=== PATIENT | female | born 1960 | race Caucasian/White ===

== ENCOUNTER 2017-09-15 16:30 | Emergency (ER) | payer BC ==
--- NOTE | 2017-09-15 16:55 | ED ---
Nausea/Vomiting/Diarrhea HPI - General Chief complaint: Nausea/Vomiting/Diarrhea Stated complaint: NVD Time Seen by Provider: 09/15/17 16:53 Source: patient Mode of arrival: wheelchair Limitations: no limitations - History of Present Illness Initial comments: Patient presents with one day of nausea vomiting diarrhea. Patient states associated with diffuse nominal cramping pain. Denies blood in vomit or stool. Denies fever. Patient states history of cholecystectomy. Patient's son was seen and treated in the ER for the same symptoms 3 days ago by myself. MD complaint: nausea, vomiting, diarrhea, abdominal pain - Related Data Home Medications Medication Instructions Recorded Confirmed ALPRAZolam [Xanax] 0.25 mg PO DAILY PRN 09/15/17 09/15/17 Butalb/APAP/Caff 50-325-40Mg 1 tab PO Q4H PRN 09/15/17 09/15/17 [Fioricet 50-325-40] Calcium Carbonate [Tums] 500 mg PO QID PRN 09/15/17 09/15/17 Docusate [Colace] 100 mg PO DAILY PRN 09/15/17 09/15/17 Ergocalciferol [Vitamin D2] 50,000 unit PO Q7D 09/15/17 09/15/17 Hydrocodone/Acetaminophen [[place] 1 tab PO Q6H PRN 09/15/17 09/15/17 10-325] Levothyroxine Sodium [Synthroid] 175 mcg PO DAILY 09/15/17 09/15/17 Lidocaine-Prilocaine Cream [[place] 1 applic TOPICAL DIRECTED PRN 09/15/1709/15 Cream 2.5%/2.5%] Loratadine 10 mg PO DAILY 09/15/17 09/15/17 Omeprazole 20 mg PO DAILY 09/15/17 09/15/17 Prochlorperazine [Compazine] 10 mg PO BID PRN 09/15/17 09/15/17 Sodium Chloride [Saline Nasal 1 spray EA NOSTRIL DAILY PRN 09/15/17 09/15/17 [place]] Tamoxifen Citrate 20 mg PO DAILY 09/15/17 09/15/17 Previous Rx's Medication Instructions Recorded Dicyclomine [Bentyl] 20 mg PO BID PRN #10 tablet 09/15/17 Ondansetron Odt [Zofran Odt] 4 mg PO Q8HR PRN #15 tab 09/15/17 Allergies Allergy/AdvReac Type Severity Reaction Status Date / Time gabapentin Allergy Swelling Verified 09/15/17 16:50 Review of Systems ROS Statement: Those systems with pertinent positive or pertinent negative responses have been documented in the HPI. ROS Other: All systems not noted in ROS Statement are negative. Constitutional: Denies: fever, chills, weakness Eyes: Denies: vision change ENT: Denies: ear pain, throat pain, congestion Respiratory: Denies: cough, dyspnea Cardiovascular: Denies: chest pain, palpitations, syncope Endocrine: Reports: fatigue Gastrointestinal: Reports: abdominal pain, nausea, vomiting, diarrhea. Denies: constipation, hematemesis, melena, hematochezia Genitourinary: Denies: urgency, dysuria, frequency, hematuria Musculoskeletal: Reports: other (LE mm cramps). Denies: back pain Skin: Denies: rash Neurological: Denies: headache Past Medical History Past Medical History: Atrial Fibrillation, Cancer, Fibromyalgia, GERD/Reflux Additional Past Medical History / Comment(s): breast and thyroid cancer , chronic back pain, diverticulitis History of Any Multi-Drug Resistant Organisms: None Reported Past Surgical History: Ablation, Cholecystectomy, Hysterectomy Additional Past Surgical History / Comment(s): lumpectomy left breast, lobectomy thyroid Past Psychological History: No Psychological Hx Reported Smoking Status: Never smoker Past Alcohol Use History: None Reported Past Drug Use History: Marijuana General Exam - General Exam Comments Initial Comments: Laying on bed on side hugging pillow, appears mild to moderately uncomfortable, although patient conversing normally and smiling and pleasant. Limitations: no limitations General appearance: alert Head exam: Present: atraumatic, normocephalic Eye exam: Present: normal appearance, PERRL, EOMI ENT exam: Present: normal exam, normal oropharynx, mucous membranes moist, TM's normal bilaterally, other (Tympanic membranes clear bilaterally) Neck exam: Present: normal inspection Respiratory exam: Present: normal lung sounds bilaterally. Absent: respiratory distress, wheezes, rales, rhonchi Cardiovascular Exam: Present: regular rate, normal rhythm GI/Abdominal exam: Present: soft, tenderness, other (Mild diffuse tenderness). Absent: distended, guarding, rebound, rigid, hernia Extremities exam: Present: normal inspection Neurological exam: Present: alert, oriented X3 Psychiatric exam: Present: normal affect, normal mood Skin exam: Present: warm, dry, intact, normal color. Absent: rash, cyanosis Course Vital Signs 09/15/17 09/15/17 16:32 18:37 Temperature 98.2 F Pulse Rate 116 H 99 Respiratory 18 16 Rate Blood Pressure 125/69 115/63 O2 Sat by Pulse 95 Oximetry Medical Decision Making - Medical Decision Making IV fluids, Pepcid, Zofran, Toradol, Bentyl given Mild elevation of white blood cell count. No other significant lab abnormalities. Patient reevaluated, states she is feeling much better following medications. States nausea resolved following medication. Patient feels comfortable going home. Supportive care discussed. Prescription of Zofran and Bentyl given. Discussed oral hydration. Patient to follow primary care physician. Return to ER for new or worsening symptoms including increased abdominal pain, not tolerating oral intake, fevers. Patient understands and agrees. Patient is very happy with her care. - Lab Data Result diagrams: 09/15/17 17:05 09/15/17 17:05 Lab Results 09/15/17 09/15/17 09/15/17 Range/Units 17:05 17:05 17:05 WBC 14.6 H (3.8-10.6) k/uL RBC 5.00 (3.80-5.40) m/uL Hgb 15.4 (11.4-16.0) gm/dL Hct 46.3 H (34.0-46.0) % MCV 92.7 (80.0-100.0) fL MCH 30.7 (25.0-35.0) pg MCHC 33.1 (31.0-37.0) g/dL RDW 12.7 (11.5-15.5) % Plt Count 251 (150-450) k/uL Neutrophils % 89 % Lymphocytes % 6 % Monocytes % 3 % Eosinophils % 1 % Basophils % 0 % Neutrophils # 13.0 H (1.3-7.7) k/uL Lymphocytes # 0.8 L (1.0-4.8) k/uL Monocytes # 0.4 (0-1.0) k/uL Eosinophils # 0.2 (0-0.7) k/uL Basophils # 0.1 (0-0.2) k/uL Sodium 144 (137-145) mmol/L Potassium 4.2 (3.5-5.1) mmol/L Chloride 108 H (98-107) mmol/L Carbon Dioxide 22 (22-30) mmol/L Anion Gap 14 mmol/L BUN 15 (7-17) mg/dL Creatinine 0.83 (0.52-1.04) mg/dL Est GFR (MDRD) Af Amer >60 (>60 ml/min/1.73 sqM) Est GFR (MDRD) Non-Af >60 (>60 ml/min/1.73 sqM) Glucose 114 H (74-99) mg/dL Calcium 9.4 (8.4-10.2) mg/dL Total Bilirubin 0.8 (0.2-1.3) mg/dL AST 20 (14-36) U/L ALT 29 (9-52) U/L Alkaline Phosphatase 90 (38-126) U/L Total Protein 7.8 (6.3-8.2) g/dL Albumin 4.6 (3.5-5.0) g/dL Lipase 62 (23-300) U/L Urine Color Urine Appearance (Clear) Urine pH (5.0-8.0) Ur Specific [place] (1.001-1.035) Urine Protein (Negative) Urine Glucose (UA) (Negative) Urine Ketones (Negative) Urine Blood (Negative) Urine Nitrite (Negative) Urine Bilirubin (Negative) Urine Urobilinogen (<2.0) mg/dL Ur Leukocyte Esterase (Negative) Urine RBC (0-5) /hpf Urine WBC (0-5) /hpf Ur Squamous Epith Cells (0-4) /hpf Amorphous Sediment (None) /hpf Hyaline Casts (0-2) /lpf Urine Mucus (None) /hpf Influenza Type A RNA Not Detected (Not Detectd) Influenza Type B (PCR) Not Detected (Not Detectd) 09/15/17 Range/Units 17:55 WBC (3.8-10.6) k/uL RBC (3.80-5.40) m/uL Hgb (11.4-16.0) gm/dL Hct (34.0-46.0) % MCV (80.0-100.0) fL MCH (25.0-35.0) pg MCHC (31.0-37.0) g/dL RDW (11.5-15.5) % Plt Count (150-450) k/uL Neutrophils % % Lymphocytes % % Monocytes % % Eosinophils % % Basophils % % Neutrophils # (1.3-7.7) k/uL Lymphocytes # (1.0-4.8) k/uL Monocytes # (0-1.0) k/uL Eosinophils # (0-0.7) k/uL Basophils # (0-0.2) k/uL Sodium (137-145) mmol/L Potassium (3.5-5.1) mmol/L Chloride (98-107) mmol/L Carbon Dioxide (22-30) mmol/L Anion Gap mmol/L BUN (7-17) mg/dL Creatinine (0.52-1.04) mg/dL Est GFR (MDRD) Af Amer (>60 ml/min/1.73 sqM) Est GFR (MDRD) Non-Af (>60 ml/min/1.73 sqM) Glucose (74-99) mg/dL Calcium (8.4-10.2) mg/dL Total Bilirubin (0.2-1.3) mg/dL AST (14-36) U/L ALT (9-52) U/L Alkaline Phosphatase (38-126) U/L Total Protein (6.3-8.2) g/dL Albumin (3.5-5.0) g/dL Lipase (23-300) U/L Urine Color Yellow Urine Appearance Cloudy H (Clear) Urine pH 5.0 (5.0-8.0) Ur Specific [place] 1.029 (1.001-1.035) Urine Protein 1+ H (Negative) Urine Glucose (UA) Negative (Negative) Urine Ketones Negative (Negative) Urine Blood Negative (Negative) Urine Nitrite Negative (Negative) Urine Bilirubin Negative (Negative) Urine Urobilinogen <2.0 (<2.0) mg/dL Ur Leukocyte Esterase Negative (Negative) Urine RBC 1 (0-5) /hpf Urine WBC 2 (0-5) /hpf Ur Squamous Epith Cells 2 (0-4) /hpf Amorphous Sediment Moderate H (None) /hpf Hyaline Casts 3 H (0-2) /lpf Urine Mucus Many H (None) /hpf Influenza Type A RNA (Not Detectd) Influenza Type B (PCR) (Not Detectd) Disposition Clinical Impression: Nausea and vomiting, Diarrhea, Abdominal pain Disposition: HOME SELF-CARE Condition: Good Instructions: Acute Nausea and Vomiting (ED), Acute Diarrhea (ED), Abdominal Pain (ED) Additional Instructions: Anastasia primary care physician one to 2 days for reevaluation. Return to ER if new or worsening symptoms including inability to tolerate oral intake or increased abdominal pain or fevers. Prescriptions: Dicyclomine [Bentyl] 20 mg PO BID PRN #10 tablet PRN Reason: abdominal cramps Ondansetron Odt [Zofran Odt] 4 mg PO Q8HR PRN #15 tab PRN Reason: Nausea Referrals: Nai Diaz MD [Primary Care Provider] - 1-2 days
[2017-09-15] MEDS ORDERED: ONDANSETRON 4 MG/2 ML VIAL IVP STA (17:01)
[2017-09-15] MEDS ORDERED: FAMOTIDINE 20 MG/2 ML VIAL IV STA (17:01)
[2017-09-15] MEDS ORDERED: SODIUM CHLORIDE 0.9% 1,000 ML IV STA (17:01)
[2017-09-15] MEDS ORDERED: DICYCLOMINE 10 MG/ML 2 ML AMP IM STA (17:01)
[2017-09-15 17:23] LABS: Basophils # (A) 0.1 k/uL (0-0.2); Basophils % (A) 0 %; Eosinophils # (A) 0.2 k/uL (0-0.7); Eosinophils % (A) 1 %; HCT 46.3 % (34.0-46.0); HGB 15.4 gm/dL (11.4-16.0); Lymphocytes # (A) 0.8 k/uL (1.0-4.8); Lymphocytes % (A) 6 %; MCH 30.7 pg (25.0-35.0); MCHC 33.1 g/dL (31.0-37.0); MCV 92.7 fL (80.0-100.0); Mean Platelet Volume 7.1; Monocytes # (A) 0.4 k/uL (0-1.0); Monocytes % (A) 3 %; Neutrophils % (A) 89 %; Platelet Count 251 k/uL (150-450); RDW 12.7 % (11.5-15.5); WBC 14.6 k/uL (3.8-10.6)
[2017-09-15 17:34] LABS: ALT 29 U/L (9-52); AST 20 U/L (14-36); Albumin 4.6 g/dL (3.5-5.0); Alkaline Phosphatase 90 U/L (38-126); Anion Gap 14 mmol/L; Blood Urea Nitrogen 15 mg/dL (7-17); Calcium 9.4 mg/dL (8.4-10.2); Carbon Dioxide 22 mmol/L (22-30); Chloride 108 mmol/L (98-107); Glucose 114 mg/dL (74-99); Lipase 62 U/L (23-300); Potassium 4.2 mmol/L (3.5-5.1); Sodium 144 mmol/L (137-145); Total Bilirubin 0.8 mg/dL (0.2-1.3); Total Protein 7.8 g/dL (6.3-8.2)
[2017-09-15] MEDS ORDERED: KETOROLAC 30 MG/ML 1 ML VIAL IVP SCH (18:00)
[2017-09-15 18:12] LABS: Amorphous Sediment,Urine Moderate /hpf; Appearance,Urine Cloudy (Clear); Bilirubin,Urine Negative (Negative); Blood,Urine Negative (Negative); Color,Urine Yellow; Glucose,Urine (UA) Negative (Negative); Hyaline Casts,Urine 3 /lpf (0-2); Ketones,Urine Negative (Negative); Leukocyte Esterase,Urine Negative (Negative); Mucus,Urine Many /hpf; Nitrite,Urine Negative (Negative); Protein,Urine 1+ (Negative); RBC,Urine 1 /hpf (0-5); Specific Gravity,Urine 1.029 (1.001-1.035); Squamous Epithelial Cell,Urine 2 /hpf (0-4); Urobilinogen,Urine <2.0 mg/dL (<2.0); WBC,Urine 2 /hpf (0-5)
[2017-09-15 18:38] VITALS: BP 115/63; PULSE 99; RESP 16
[2017-09-15 19:13] VITALS: TEMP 98.4
== END 2017-09-15 19:11 | disposition home or self-care (01) ==
LOC: EC 16:30
DX: R11.2 Nausea with vomiting, unspecified (principal); R19.7 Diarrhea, unspecified; R10.84 Generalized abdominal pain; K21.9 Gastro-esophageal reflux disease without esophagitis; Z85.3 Personal history of malignant neoplasm of breast; Z85.850 Personal history of malignant neoplasm of thyroid; Z90.49 Acquired absence of other specified parts of digestive tract; Z90.710 Acquired absence of both cervix and uterus; Z79.899 Other long term (current) drug therapy; Z88.8 Allergy status to other drugs, medicaments and biological substances
CPT/HCPCS: 36415; 80053; 83690; 85025; 81001; 87502; 99284; 96374; 96375 ×2; 96361; 96372; J0500; J2405; J1885

== ENCOUNTER 2018-07-01 17:31 | Emergency (ER) | payer BC ==
[2018-07-01 17:55] VITALS: RESP 16; TEMP 99.4
--- NOTE | 2018-07-01 18:12 | ED ---
General Adult HPI - General Source: patient, RN notes reviewed Mode of arrival: wheelchair Limitations: no limitations <Darrin Guillory P - Last Filed: 07/02/18 23:11> <Brittani Contreras P - Last Filed: 07/10/18 00:25> - General Chief complaint: Chest Pain Stated complaint: chest pain Time Seen by Provider: 07/01/18 17:51 - History of Present Illness Initial comments: 57-year-old female with a past medical history of A. fib, breast and thyroid cancer, fibromyalgia, GERD presents to the emergency department for a chief complaint of chest pain 2 weeks. Patient states this pain is in the left of her chest and is a sharp stabbing pain. She states it radiates to her back and neck. Patient states this has been constant for the past 2 weeks. Patient states she thought it was pleurisy but wanted to make sure nothing else was going on. Patient denies smoking. She denies history of asthma. Patient states laying down makes the pain better and bending forward makes the pain worse. Patient states breathing makes the pain worse as well. Patient denies pain in her legs. Patient has no other complaints at this time including s abdominal pain, nausea or vomiting, headache, or visual changes. (Darrin Guillory) - Related Data Home Medications Medication Instructions Recorded Confirmed Butalb/APAP/Caff 50-325-40Mg 1 tab PO Q4H PRN 09/15/17 07/01/18 [Fioricet 50-325-40] Calcium Carbonate [Tums] 500 mg PO QID PRN 09/15/17 07/01/18 Docusate [Colace] 100 mg PO DAILY PRN 09/15/17 07/01/18 Ergocalciferol [Vitamin D2] 50,000 unit PO [place] 09/15/17 07/01/18 Hydrocodone/Acetaminophen [[place] 1 tab PO Q6H PRN 09/15/17 07/01/18 10-325] Levothyroxine Sodium [Synthroid] 175 mcg PO [id number] 09/15/17 07/01/18 Loratadine 10 mg PO DAILY 09/15/17 07/01/18 Omeprazole 20 mg PO DAILY 09/15/17 07/01/18 Sodium Chloride [Saline Nasal 1 spray EA NOSTRIL DAILY PRN 09/15/17 07/01/18 [place]] Tamoxifen Citrate 20 mg PO DAILY 09/15/17 07/01/18 ALPRAZolam [Xanax] 0.5 mg PO HS PRN 07/01/18 07/01/18 Levothyroxine Sodium [Synthroid] 87.5 mcg PO [place] 07/01/18 07/01/18 Allergies Allergy/AdvReac Type Severity Reaction Status Date / Time gabapentin Allergy Rash/Hives Verified 07/01/18 17:49 Review of Systems ROS Other: All systems not noted in ROS Statement are negative. <Darrin Guillory P - Last Filed: 07/02/18 23:11> ROS Other: All systems not noted in ROS Statement are negative. <Brittani Contreras P - Last Filed: 07/10/18 00:25> ROS Statement: Those systems with pertinent positive or pertinent negative responses have been documented in the HPI. Past Medical History Past Medical History: Atrial Fibrillation, Cancer, Fibromyalgia, GERD/Reflux Additional Past Medical History / Comment(s): breast and thyroid cancer , chronic back pain, diverticulitis History of Any Multi-Drug Resistant Organisms: None Reported Past Surgical History: Ablation, Cholecystectomy, Hysterectomy Additional Past Surgical History / Comment(s): lumpectomy left breast, lobectomy thyroid Past Psychological History: No Psychological Hx Reported Smoking Status: Never smoker Past Alcohol Use History: None Reported Past Drug Use History: Marijuana <Darrin Guillory P - Last Filed: 07/02/18 23:11> General Exam Limitations: no limitations General appearance: alert, in no apparent distress Head exam: Present: atraumatic, normocephalic, normal inspection Eye exam: Present: normal appearance, PERRL, EOMI. Absent: scleral icterus, conjunctival injection, periorbital swelling ENT exam: Present: normal exam, mucous membranes moist Neck exam: Present: normal inspection, full ROM. Absent: tenderness, meningismus, lymphadenopathy Respiratory exam: Present: normal lung sounds bilaterally, chest wall tenderness (Patient does have some left-sided anterior chest wall tenderness). Absent: respiratory distress, wheezes, rales, rhonchi, stridor Cardiovascular Exam: Present: regular rate, normal rhythm, normal heart sounds. Absent: systolic murmur, diastolic murmur, rubs, gallop, clicks Back exam: Present: tenderness (Tenderness noted to the left thoracic paraspinal area). Absent: vertebral tenderness Neurological exam: Present: alert, oriented X3, CN II-XII intact Psychiatric exam: Present: normal affect, normal mood <Darrin Guillory P - Last Filed: 07/02/18 23:11> Vital Signs 07/01/18 07/01/18 17:53 21:34 Temperature 99.4 F Pulse Rate 93 82 Respiratory 16 16 Rate Blood Pressure 125/81 118/77 O2 Sat by Pulse 93 L 98 Oximetry EKG Findings - EKG Comments: EKG Findings:: Normal sinus rhythm, ventricular rate 94, ND interval 146, QTC 457, no evidence of ST elevation or depression <Darrin Guillory P - Last Filed: 07/02/18 23:11> Medical Decision Making - Lab Data Result diagrams: 07/01/18 18:10 07/01/18 18:10 <Darrin Guillory P - Last Filed: 07/02/18 23:11> - Lab Data Result diagrams: 07/01/18 18:10 07/01/18 18:10 <Brittani Contreras P - Last Filed: 07/10/18 00:25> - Medical Decision Making 57-year-old female with a past medical history of A. fib, breast and thyroid cancer, fibromyalgia, GERD presents to the emergency department for a chief of chest pain 2 weeks. The pain is the left side of her chest radiating to her back. Patient states it is pleuritic. She states has been constant for 2 weeks. Patient denies history of smoking, family history of heart disease, previous [place], hypertension, hypercholesterolemia, diabetes. Heart score of 1-2 which is low risk. CBC and CMP are unremarkable. Troponin negative. D-dimer 0.45. CTA of the chest was ordered as pain is radiating to the back which was negative for any evidence of aneurysm or dissection. No evidence of pulmonary embolism. Chest x-ray shows no active cardiopulmonary disease. On reevaluation patient states pain does feel worse when she moves and presses on the area. Patient states he could be a muscle. Discussed with patient that at this time as pain has been ongoing for weeks and lab work is negative patient can follow up outpatient. Patient agrees with this. She will return if she has any worsening symptoms. (Darrin Guillory) I was available for consultation in the emergency department. The history and physical exam were done by the midlevel provider. I was consulted for this patient's care. I reviewed the case with the midlevel provider and based on their presentation of the patient, I agree with the assessment, medical decision making and plan of care as documented. (Brittani Contreras) - Lab Data Lab Results 07/01/18 07/01/18 07/01/18 Range/Units 18:10 18:10 18:10 WBC 8.3 (3.8-10.6) k/uL RBC 4.87 (3.80-5.40) m/uL Hgb 14.9 (11.4-16.0) gm/dL Hct 44.8 (34.0-46.0) % MCV 91.9 (80.0-100.0) fL MCH 30.6 (25.0-35.0) pg MCHC 33.3 (31.0-37.0) g/dL RDW 12.9 (11.5-15.5) % Plt Count 243 (150-450) k/uL Neutrophils % 55 % Lymphocytes % 32 % Monocytes % 7 % Eosinophils % 3 % Basophils % 1 % Neutrophils # 4.6 (1.3-7.7) k/uL Lymphocytes # 2.7 (1.0-4.8) k/uL Monocytes # 0.6 (0-1.0) k/uL Eosinophils # 0.2 (0-0.7) k/uL Basophils # 0.1 (0-0.2) k/uL PT (9.0-12.0) sec INR (<1.2) APTT (22.0-30.0) sec D-Dimer (<0.60) mg/L FEU Sodium 141 (137-145) mmol/L Potassium 4.5 (3.5-5.1) mmol/L Chloride 107 (98-107) mmol/L Carbon Dioxide 24 (22-30) mmol/L Anion Gap 10 mmol/L BUN 12 (7-17) mg/dL Creatinine 0.59 (0.52-1.04) mg/dL Est GFR (CKD-EPI)AfAm >90 (>60 ml/min/1.73 sqM) Est GFR (CKD-EPI)NonAf >90 (>60 ml/min/1.73 sqM) Glucose 74 (74-99) mg/dL Calcium 9.0 (8.4-10.2) mg/dL Magnesium 2.0 (1.6-2.3) mg/dL Total Bilirubin 0.4 (0.2-1.3) mg/dL AST 27 (14-36) U/L ALT 22 (9-52) U/L Alkaline Phosphatase 77 (38-126) U/L Total Creatine Kinase 45 (30-135) U/L CK-MB (CK-2) <0.2 (0.0-2.4) ng/mL CK-MB (CK-2) Rel Index Troponin I <0.012 (0.000-0.034) ng/mL NT-Pro-B Natriuret Pep pg/mL Total Protein 7.7 (6.3-8.2) g/dL Albumin 4.3 (3.5-5.0) g/dL Amylase 42 (30-110) U/L Lipase 96 (23-300) U/L 07/01/18 07/01/18 Range/Units 18:10 18:10 WBC (3.8-10.6) k/uL RBC (3.80-5.40) m/uL Hgb (11.4-16.0) gm/dL Hct (34.0-46.0) % MCV (80.0-100.0) fL MCH (25.0-35.0) pg MCHC (31.0-37.0) g/dL RDW (11.5-15.5) % Plt Count (150-450) k/uL Neutrophils % % Lymphocytes % % Monocytes % % Eosinophils % % Basophils % % Neutrophils # (1.3-7.7) k/uL Lymphocytes # (1.0-4.8) k/uL Monocytes # (0-1.0) k/uL Eosinophils # (0-0.7) k/uL Basophils # (0-0.2) k/uL PT 9.9 (9.0-12.0) sec INR 1.0 (<1.2) APTT 22.0 (22.0-30.0) sec D-Dimer 0.45 (<0.60) mg/L FEU Sodium (137-145) mmol/L Potassium (3.5-5.1) mmol/L Chloride (98-107) mmol/L Carbon Dioxide (22-30) mmol/L Anion Gap mmol/L BUN (7-17) mg/dL Creatinine (0.52-1.04) mg/dL Est GFR (CKD-EPI)AfAm (>60 ml/min/1.73 sqM) Est GFR (CKD-EPI)NonAf (>60 ml/min/1.73 sqM) Glucose (74-99) mg/dL Calcium (8.4-10.2) mg/dL Magnesium (1.6-2.3) mg/dL Total Bilirubin (0.2-1.3) mg/dL AST (14-36) U/L ALT (9-52) U/L Alkaline Phosphatase (38-126) U/L Total Creatine Kinase (30-135) U/L CK-MB (CK-2) (0.0-2.4) ng/mL CK-MB (CK-2) Rel Index Troponin I (0.000-0.034) ng/mL NT-Pro-B Natriuret Pep 325 pg/mL Total Protein (6.3-8.2) g/dL Albumin (3.5-5.0) g/dL Amylase (30-110) U/L Lipase (23-300) U/L Disposition Is patient prescribed a controlled substance at d/c from ED?: No Time of Disposition: 21:29 <Darrin Guillory P - Last Filed: 07/02/18 23:11> <Brittani Contreras P - Last Filed: 07/10/18 00:25> Clinical Impression: Atypical chest pain Disposition: HOME SELF-CARE Condition: Good Instructions: Chest Pain (ED) Additional Instructions: Please take Motrin and Tylenol for pain. Please follow up with primary care in 1-2 days. Please return to the emergency department if you have any worsening symptoms. Referrals: Nai Diaz MD [Primary Care Provider] - 1-2 days
[2018-07-01] MEDS ORDERED: SODIUM CHLORIDE 0.9% 1,000 ML IV STA (18:22)
[2018-07-01] MEDS ORDERED: KETOROLAC 30 MG/ML 1 ML VIAL IVP STA (18:22)
[2018-07-01 18:49] LABS: Basophils # (A) 0.1 k/uL (0-0.2); Basophils % (A) 1 %; Eosinophils # (A) 0.2 k/uL (0-0.7); Eosinophils % (A) 3 %; HCT 44.8 % (34.0-46.0); HGB 14.9 gm/dL (11.4-16.0); Lymphocytes # (A) 2.7 k/uL (1.0-4.8); Lymphocytes % (A) 32 %; MCH 30.6 pg (25.0-35.0); MCHC 33.3 g/dL (31.0-37.0); MCV 91.9 fL (80.0-100.0); Mean Platelet Volume 7.3; Monocytes # (A) 0.6 k/uL (0-1.0); Monocytes % (A) 7 %; Neutrophils # (A) 4.6 k/uL (1.3-7.7); Neutrophils % (A) 55 %; Platelet Count 243 k/uL (150-450); RBC 4.87 m/uL (3.80-5.40); RDW 12.9 % (11.5-15.5); WBC 8.3 k/uL (3.8-10.6)
[2018-07-01 18:57] LABS: ALT 22 U/L (9-52); AST 27 U/L (14-36); Albumin 4.3 g/dL (3.5-5.0); Alkaline Phosphatase 77 U/L (38-126); Amylase 42 U/L (30-110); Anion Gap 10 mmol/L; Blood Urea Nitrogen 12 mg/dL (7-17); Carbon Dioxide 24 mmol/L (22-30); Chloride 107 mmol/L (98-107); Glucose 74 mg/dL (74-99); Lipase 96 U/L (23-300); Potassium 4.5 mmol/L (3.5-5.1); Sodium 141 mmol/L (137-145); Total Bilirubin 0.4 mg/dL (0.2-1.3); Total Protein 7.7 g/dL (6.3-8.2)
--- NOTE | 2018-07-01 19:08 | XR ---
EXAMINATION TYPE: XR chest 2V DATE OF EXAM: 07/01/2018 COMPARISON: NONE HISTORY: Chest pain TECHNIQUE: Frontal and lateral views of the chest are obtained. FINDINGS: There is no heart failure nor confluent pneumonic infiltrate. Costophrenic angles are domingo r. Bony thorax is intact. Pulmonary vascularity is normal. IMPRESSION: No active cardiopulmonary disease.
[2018-07-01 19:09] LABS: D-Dimer 0.45 mg/L FEU (<0.60); Prothrombin Time 9.9 sec (9.0-12.0)
[2018-07-01 19:11] LABS: Creatine Kinase 45 U/L (30-135)
[2018-07-01 19:22] LABS: Creatine Kinase MB <0.2 ng/mL (0.0-2.4); Troponin I <0.012 ng/mL (0.000-0.034)
--- NOTE | 2018-07-01 21:12 | CT ---
EXAMINATION TYPE: CT angio chest DATE OF EXAM: 07/01/2018 8:07 PM COMPARISON: None HISTORY: chest pain radiating to shoulder blades CT DLP: 1562.2 mGycm Automated exposure control for dose reduction was used. CONTRAST: CTA scan of the thorax is performed with IV Contrast, patient injected with 100 mL of Isovue 370, pul monary embolism protocol. There are 3-D post processed images.. FINDINGS: The lungs are clear of consolidation. There is no evidence of a pulmonary mass. There is no pleural e ffusion. There is diffuse fatty infiltration of the liver. Heart size is normal. There is no pericardial effusion. There are no hilar masses. There is no medias tinal adenopathy. Thoracic aorta is intact without evidence of aneurysm or dissection. There is normal contrast opacification of the pulmonary arteries. There are no filling defect. The ana [place]isa [place] thorax is intact. IMPRESSION: NO EVIDENCE OF PULMONARY EMBOLISM. FATTY INFILTRATION OF THE LIVER.
[2018-07-01 21:41] VITALS: BP 118/77; PULSE 82
== END 2018-07-01 21:34 | disposition home or self-care (01) ==
LOC: EC 17:31
DX: R07.89 Other chest pain (principal); I48.91 Unspecified atrial fibrillation; M79.7 Fibromyalgia; K21.9 Gastro-esophageal reflux disease without esophagitis; Z85.3 Personal history of malignant neoplasm of breast; Z85.850 Personal history of malignant neoplasm of thyroid; Z79.899 Other long term (current) drug therapy; Z88.8 Allergy status to other drugs, medicaments and biological substances
CPT/HCPCS: 36415; 93005; 85379; 83880; 80053; 82150; 82550; 82553; 83690; 83735; 84484; 85025; 85610; 85730; 71046; 71275; 99285; 96374; J1885; Q9967

== ENCOUNTER → 2019-06-06 | Outpatient (CLI) | payer BC ==
--- NOTE | 2019-06-09 11:33 | PE ---
Nuclear medicine PET/CT HISTORY: Breast carcinoma Patient received 12 mCi F-18 FDG intravenously in delayed scanning was performed from skull base to t he mid thighs. Localization and attenuation correction CT scan was performed. Correlation CT chest 07/01/2018 Neck and chest: Abnormal density present right upper lobe is ill-defined, axial image #61. No pleural or pericardial effusion. No cervical, supraclavicular, axillary, mediastinal, or hilar adenopathy. ABDOMEN: Patient is post cholecystectomy. No evident liver mass or suspicious hypermetabolic uptake. Liver shows low attenuation likely due to hepatic steatosis. No adrenal mass. No retroperitoneal lynn opathy or ascites. Small umbilical hernia contains fat. Uterus and adnexal structures are not seen. N o pelvic adenopathy. Osseous structures: Multiple foci of decreased attenuation noted within the visualized calvarium, lyt ic lesions extend through the inner and outer table in the left calvarium in multiple sites in its vi sualized portion, approximately 20 lesions. Lytic lesions also noted within the cervical spine, posto p changes noted status post anterior cervical fusion and discectomy. Multiple lytic foci are also pre sent within the bilateral humerus, scapulae, manubrium with some associated sclerosis and SUV 13, margarette ateral ribs and thoracic spine with SUV 3-6.3, pelvis with left acetabulum showing SUV 8.5, and scler otic foci present within the vertebral bodies of the lumbar spine suggest prior vertebroplasty change with some areas of probable nontarget cement placement. Left femur shows abnormal focus, SUV 6.0. I nferior middle temporal fossa on the left shows a focus of hypermetabolic uptake, SUV 8. IMPRESSION: Osseous metastatic disease.
== END | disposition home or self-care (01) ==
LOC: RADPETMAIN 11:09
PROVIDERS: ATTEND Internal Medicine Medical Oncology
DX: C79.51 Secondary malignant neoplasm of bone (principal); C50.412 Malignant neoplasm of upper-outer quadrant of left female breast
CPT/HCPCS: 78815; A9552

== ENCOUNTER 2019-06-15 12:10 | Inpatient (IN) | payer BC ==
[2019-06-15] MEDS ORDERED: SODIUM CHLORIDE 0.9% 500 ML 500 ML IV STA (13:08)
--- NOTE | 2019-06-15 13:11 | ED ---
General Adult HPI - General Chief complaint: Recheck/Abnormal Lab/Rx Stated complaint: ABNORMAL LABS, CALCIUM HIGH Source: patient, RN notes reviewed, old records reviewed Mode of arrival: ambulatory Limitations: no limitations - History of Present Illness Initial comments: This a 58-year-old female presents emergency department with past history significant for breast cancer with metastatic disease to the bone. Patient states she's been having some tingling sensation to her face some nausea and just generalized bone pain including in her skull. Patient states she was james led today to come to the emergency department because her calcium was elevated. Patient denies any fever or chills. Patient denies any chest pain or palpitation. Patient denies any difficulty breathing shortness of breath. Patient denies any headache patient denies any new numbness or weakness. - Related Data Home Medications Medication Instructions Recorded Confirmed Calcium Carbonate [Tums] 500 - 1,000 mg PO QID PRN 09/15/17 06/15/19 Ergocalciferol [Vitamin D2] 50,000 unit PO [place] 09/15/17 06/15/19 Levothyroxine Sodium [Synthroid] 175 mcg PO DAILY@0500 09/15/17 06/15/19 Loratadine 10 mg PO DAILY 09/15/17 06/15/19 Omeprazole 20 mg PO DAILY 09/15/17 06/15/19 ALPRAZolam [Xanax] 0.5 mg PO QID PRN 07/01/18 06/15/19 Acetaminophen Tab [Tylenol Tab] 1,000 mg PO Q8H 06/15/19 06/15/19 Colace 50 mg PO BID 06/15/19 06/15/19 Diclofenac Sodium [Voltaren Gel] 2 gram TOPICAL QID PRN 06/15/19 06/15/19 HYDROmorphone HCL 2 mg PO Q6H PRN 06/15/19 06/15/19 Methocarbamol [Robaxin] 750 mg PO Q6H PRN 06/15/19 06/15/19 Metoprolol Succinate (ER) [Toprol 25 mg PO DAILY 06/15/19 06/15/19 Xl] Metoprolol Succinate (ER) [Toprol 50 mg PO HS 06/15/19 06/15/19 Xl] Morphine Sulfate ER [Ms Contin] 30 mg PO Q12HR 06/15/19 06/15/19 Polyethylene Glycol 3350 [Miralax] 17 gm PO DAILY 06/15/19 06/15/19 Potassium Chloride [Klor-Con 20] 20 meq PO DAILY 06/15/19 06/15/19 Rivaroxaban [Xarelto] 20 mg PO W/SUPPER 06/15/19 06/15/19 Sennosides [Senna] 8.6 mg PO BID 06/15/19 06/15/19 oxyCODONE HCL [Roxicodone] 10 mg PO Q4H PRN 06/15/19 06/15/19 Allergies Allergy/AdvReac Type Severity Reaction Status Date / Time gabapentin Allergy Rash/Hives Verified 06/15/19 14:17 vancomycin Allergy Rash/Hives Verified 06/15/19 14:17 Review of Systems ROS Statement: Those systems with pertinent positive or pertinent negative responses have been documented in the HPI. ROS Other: All systems not noted in ROS Statement are negative. Past Medical History Past Medical History: Atrial Fibrillation, Cancer, Fibromyalgia, GERD/Reflux Additional Past Medical History / Comment(s): breast and thyroid cancer , chronic back pain, diverticulitis History of Any Multi-Drug Resistant Organisms: None Reported Past Surgical History: Ablation, Back Surgery, Cholecystectomy, Hysterectomy Additional Past Surgical History / Comment(s): lumpectomy left breast, lobectomy thyroid, c5 c6 c7 fusion, bone marrow biopsy Past Psychological History: No Psychological Hx Reported Smoking Status: Never smoker Past Alcohol Use History: None Reported Past Drug Use History: None Reported General Exam - General Exam Comments Initial Comments: GENERAL: Patient is well-developed and well-nourished. Patient is nontoxic and well- hydrated and is in mild distress. ENT: Neck is soft and supple. No significant lymphadenopathy is noted. Oropharynx is clear. Moist mucous membranes. Neck has full range of motion without eliciting any pain. EYES: The sclera were anicteric and conjunctiva were pink and moist. Extraocular movements were intact and pupils were equal round and reactive to light. Eyelids were unremarkable. PULMONARY: Unlabored respirations. Good breath sounds bilaterally. No audible rales rhonchi or wheezing was noted. CARDIOVASCULAR: There is a regular rate and rhythm without any murmurs gallops or rubs. ABDOMEN: Soft and nontender with normal bowel sounds. No palpable organomegaly was noted. There is no palpable pulsatile mass. SKIN: Skin is clear with no lesions or rashes and otherwise unremarkable. NEUROLOGIC: Patient is alert and oriented x3. Cranial nerves II through XII are grossly intact. Motor and sensory are also intact. Normal speech, volume and content. Symmetrical smile. MUSCULOSKELETAL: Normal extremities with adequate strength and full range of motion. Patient is tender just about anything she touch her she states that is her baseline since she's had pelvis bone metastases. LYMPHATICS: No significant lymphadenopathy is noted PSYCHIATRIC: Normal psychiatric evaluation. Limitations: no limitations Course Vital Signs 06/15/19 06/15/19 12:23 14:46 Temperature 97.6 F Pulse Rate 89 82 Respiratory 18 16 Rate Blood Pressure 101/65 109/80 O2 Sat by Pulse 95 89 L Oximetry Medical Decision Making - Medical Decision Making EKG shows normal sinus rhythm at 84 bpm CO interval 270 QRS is 88 QT interval 344 QTC is 406 per patient's EKG shows no ST segment elevation or depression or T wave abnormalities are noted. Patient was hypercalcemic the level of 14.9. Fluids as well as Zometa. I spoke with Dr. Abarca she agreed to admit the patient admitted the patient I spoke with Dr. Ordonez he agreed to see the patient on consult I also consult nephrology. I wrote admitting orders. - Lab Data Result diagrams: 06/15/19 12:56 06/15/19 12:56 Lab Results 06/15/19 06/15/19 06/15/19 Range/Units 12:56 12:56 12:56 WBC 4.5 (3.8-10.6) k/uL RBC 3.86 (3.80-5.40) m/uL Hgb 12.0 (11.4-16.0) gm/dL Hct 35.9 (34.0-46.0) % MCV 93.0 (80.0-100.0) fL MCH 31.2 (25.0-35.0) pg MCHC 33.5 (31.0-37.0) g/dL RDW 16.5 H (11.5-15.5) % Plt Count 213 (150-450) k/uL Neutrophils % Not Reportable Neutrophils % (Manual) 66 % Band Neutrophils % 5 % Lymphocytes % Not Reportable Lymphocytes % (Manual) 11 % Monocytes % Not Reportable Monocytes % (Manual) 8 % Eosinophils % Not Reportable Eosinophils % (Manual) 2 % Basophils % Not Reportable Basophils % (Manual) 2 % Metamyelocytes % 2 % Myelocytes % 6 % Neutrophils # Not Reportable Neutrophils # (Manual) 3.10 (1.3-7.7) k/uL Lymphocytes # Not Reportable Lymphocytes # (Manual) 0.50 L (1.0-4.8) k/uL Monocytes # Not Reportable Monocytes # (Manual) 0.36 (0-1.0) k/uL Eosinophils # Not Reportable Eosinophils # (Manual) 0.09 (0-0.7) k/uL Basophils # Not Reportable Basophils # (Manual) 0.09 (0-0.2) k/uL Metamyelocytes # (Man) 0.09 H (0) k/uL Myelocytes # (Manual) 0.27 H (0) k/uL Nucleated RBCs 6 H (0-0) /100 WBC Manual Slide Review Performed Poikilocytosis Slight Anisocytosis Slight PT 10.4 (9.0-12.0) sec INR 1.0 (<1.2) APTT 22.0 (22.0-30.0) sec Sodium 138 (137-145) mmol/L Potassium 4.4 (3.5-5.1) mmol/L Chloride 102 (98-107) mmol/L Carbon Dioxide 28 (22-30) mmol/L Anion Gap 8 mmol/L BUN 20 H (7-17) mg/dL Creatinine 0.73 (0.52-1.04) mg/dL Est GFR (CKD-EPI)AfAm >90 (>60 ml/min/1.73 sqM) Est GFR (CKD-EPI)NonAf >90 (>60 ml/min/1.73 sqM) Glucose 108 H (74-99) mg/dL Calcium 14.9 H* (8.4-10.2) mg/dL Ionized Calcium Radha (4.5-5.3) mg/dL Magnesium 2.2 (1.6-2.3) mg/dL Total Bilirubin 0.5 (0.2-1.3) mg/dL AST 88 H (14-36) U/L ALT 57 H (9-52) U/L Alkaline Phosphatase 235 H (38-126) U/L Troponin I (0.000-0.034) ng/mL Total Protein 7.5 (6.3-8.2) g/dL Albumin 4.2 (3.5-5.0) g/dL 06/15/19 06/15/19 Range/Units 12:56 14:42 WBC (3.8-10.6) k/uL RBC (3.80-5.40) m/uL Hgb (11.4-16.0) gm/dL Hct (34.0-46.0) % MCV (80.0-100.0) fL MCH (25.0-35.0) pg MCHC (31.0-37.0) g/dL RDW (11.5-15.5) % Plt Count (150-450) k/uL Neutrophils % Neutrophils % (Manual) % Band Neutrophils % % Lymphocytes % Lymphocytes % (Manual) % Monocytes % Monocytes % (Manual) % Eosinophils % Eosinophils % (Manual) % Basophils % Basophils % (Manual) % Metamyelocytes % % Myelocytes % % Neutrophils # Neutrophils # (Manual) (1.3-7.7) k/uL Lymphocytes # Lymphocytes # (Manual) (1.0-4.8) k/uL Monocytes # Monocytes # (Manual) (0-1.0) k/uL Eosinophils # Eosinophils # (Manual) (0-0.7) k/uL Basophils # Basophils # (Manual) (0-0.2) k/uL Metamyelocytes # (Man) (0) k/uL Myelocytes # (Manual) (0) k/uL Nucleated RBCs (0-0) /100 WBC Manual Slide Review Poikilocytosis Anisocytosis PT (9.0-12.0) sec INR (<1.2) APTT (22.0-30.0) sec Sodium (137-145) mmol/L Potassium (3.5-5.1) mmol/L Chloride (98-107) mmol/L Carbon Dioxide (22-30) mmol/L Anion Gap mmol/L BUN (7-17) mg/dL Creatinine (0.52-1.04) mg/dL Est GFR (CKD-EPI)AfAm (>60 ml/min/1.73 sqM) Est GFR (CKD-EPI)NonAf (>60 ml/min/1.73 sqM) Glucose (74-99) mg/dL Calcium (8.4-10.2) mg/dL Ionized Calcium Radha 8.0 H* (4.5-5.3) mg/dL Magnesium (1.6-2.3) mg/dL Total Bilirubin (0.2-1.3) mg/dL AST (14-36) U/L ALT (9-52) U/L Alkaline Phosphatase (38-126) U/L Troponin I <0.012 (0.000-0.034) ng/mL Total Protein (6.3-8.2) g/dL Albumin (3.5-5.0) g/dL Critical Care Time Critical Care Time: Yes Total Critical Care Time: 35 Disposition Clinical Impression: Metastatic breast cancer, Hypercalcemia Disposition: ADMITTED IP TO THIS [facility] Referrals: Krishan Javed MD [Primary Care Provider] - 1-2 days Time of Disposition: 15:41
[2019-06-15] MEDS ORDERED: HYDROmorphone 1 MG/ML 1 ML SYRINGE IVP STA (13:29)
[2019-06-15] MEDS ORDERED: ONDANSETRON 4 MG/2 ML VIAL IVP STA (13:29)
[2019-06-15 13:35] LABS: ALT 57 U/L (9-52); AST 88 U/L (14-36); African American GFR (CKD) >90 (>60 ml/min/1.73 sqM); Albumin 4.2 g/dL (3.5-5.0); Alkaline Phosphatase 235 U/L (38-126); Anion Gap 8 mmol/L; Blood Urea Nitrogen 20 mg/dL (7-17); Carbon Dioxide 28 mmol/L (22-30); Chloride 102 mmol/L (98-107); Glucose 108 mg/dL (74-99); Magnesium 2.2 mg/dL (1.6-2.3); Non-African American GFR(CKD) >90 (>60 ml/min/1.73 sqM); Sodium 138 mmol/L (137-145); Total Bilirubin 0.5 mg/dL (0.2-1.3); Total Protein 7.5 g/dL (6.3-8.2)
[2019-06-15 13:46] LABS: Prothrombin Time 10.4 sec (9.0-12.0)
[2019-06-15 13:51] LABS: Anisocytosis Slight; HCT 35.9 % (34.0-46.0); MCH 31.2 pg (25.0-35.0); MCHC 33.5 g/dL (31.0-37.0); Mean Platelet Volume 6.9; Platelet Count 213 k/uL (150-450); Poikilocytosis Slight; RBC 3.86 m/uL (3.80-5.40); RDW 16.5 % (11.5-15.5)
[2019-06-15 13:59] LABS: Calcium 14.9 mg/dL (8.4-10.2)
[2019-06-15 14:00] LABS: Potassium 4.4 mmol/L (3.5-5.1)
[2019-06-15 14:15] LABS: Band Neutrophils % 5 %; Basophils # (M) 0.09 k/uL (0-0.2); Eosinophils # (M) 0.09 k/uL (0-0.7); Metamyelocytes # (M) 0.09 k/uL (0); Metamyelocytes % 2 %; Monocytes # (M) 0.36 k/uL (0-1.0); Myelocytes # (M) 0.27 k/uL (0); Myelocytes % 6 %; Neutrophils % (M) 66 %; Nucleated Red Blood Cells 6 /100 WBC (0-0); Total Cells Counted 200; WBC 4.5 k/uL (3.8-10.6)
[2019-06-15] MEDS ORDERED: SODIUM CHLORIDE 0.9% 1,000 ML IV ONE (15:43)
[2019-06-15] MEDS ORDERED: ZOLEDRONIC ACID 4 MG in SODIUM CHLORIDE 0.9% 100 ML IV ONE (16:00)
[2019-06-15 18:33] LABS: ALT 56 U/L (9-52); AST 76 U/L (14-36); African American GFR (CKD) >90 (>60 ml/min/1.73 sqM); Albumin 3.8 g/dL (3.5-5.0); Alkaline Phosphatase 218 U/L (38-126); Anion Gap 7 mmol/L; Blood Urea Nitrogen 17 mg/dL (7-17); Carbon Dioxide 32 mmol/L (22-30); Chloride 101 mmol/L (98-107); Glucose 113 mg/dL (74-99); Magnesium 2.1 mg/dL (1.6-2.3); Non-African American GFR(CKD) 90 (>60 ml/min/1.73 sqM); Sodium 140 mmol/L (137-145); Total Bilirubin 0.3 mg/dL (0.2-1.3); Total Protein 6.7 g/dL (6.3-8.2)
[2019-06-15 18:45] LABS: Calcium 14.7 mg/dL (8.4-10.2)
[2019-06-15] MEDS ORDERED: ALPRAZolam 0.5 MG TAB PO PRN (19:37)
[2019-06-15] MEDS ORDERED: DICLOFENAC SODIUM GEL 100 GM TUBE TOPICAL PRN (19:37)
[2019-06-15] MEDS: RIVAROXABAN 20 MG TAB PO SCH (20:33)
[2019-06-15] MEDS: METOPROLOL SUCCINATE (ER) 50 MG TAB.ER.24H PO SCH (20:33)
[2019-06-15] MEDS: DOCUSATE ORAL SOLN 100 MG/10 ML CUP PO SCH (20:42)
[2019-06-15] MEDS: METHOCARBAMOL 750 MG TAB PO PRN (20:46)
[2019-06-15] MEDS: SENNOSIDES 8.6 MG TAB PO SCH (20:46)
[2019-06-15] MEDS: CALCITONIN INJ 200 UNIT/ML (MDV) VIAL IM SCH (20:48)
[2019-06-15] MEDS: HYDROmorphone 1 MG/ML 1 ML SYRINGE IVP PRN (21:40)
[2019-06-15] MEDS: ONDANSETRON 4 MG/2 ML VIAL IVP PRN (21:40)
[2019-06-15] MEDS: ACETAMINOPHEN TAB 500 MG TAB PO SCH (22:38)
[2019-06-16] MEDS ORDERED: MORPHINE SULFATE ER 30 MG TABLET PO SCH
[2019-06-16 01:50] LABS: Protein, Total 5.8 g/dL (6.2-8.2)
[2019-06-16] MEDS: METHOCARBAMOL 750 MG TAB PO PRN ×2 (03:30→13:02)
[2019-06-16] MEDS: HYDROmorphone 1 MG/ML 1 ML SYRINGE IVP PRN ×3 (05:00→22:50)
[2019-06-16] MEDS: LEVOTHYROXINE 75 MCG TAB PO SCH (06:10)
[2019-06-16] MEDS: ACETAMINOPHEN TAB 500 MG TAB PO SCH ×3 (06:10→21:19)
[2019-06-16] MEDS: LEVOTHYROXINE 100 MCG TAB PO SCH (06:10)
[2019-06-16] MEDS ORDERED: PANTOPRAZOLE 40 MG TABLET PO SCH (07:30)
[2019-06-16 08:31] LABS: ALT 55 U/L (9-52); AST 68 U/L (14-36); African American GFR (CKD) >90 (>60 ml/min/1.73 sqM); Albumin 3.7 g/dL (3.5-5.0); Alkaline Phosphatase 224 U/L (38-126); Anion Gap 7 mmol/L; Blood Urea Nitrogen 13 mg/dL (7-17); Calcium 11.2 mg/dL (8.4-10.2); Carbon Dioxide 29 mmol/L (22-30); Chloride 104 mmol/L (98-107); Glucose 117 mg/dL (74-99); Non-African American GFR(CKD) 87 (>60 ml/min/1.73 sqM); Potassium 4.1 mmol/L (3.5-5.1); Sodium 140 mmol/L (137-145); Total Bilirubin 0.4 mg/dL (0.2-1.3); Total Protein 6.6 g/dL (6.3-8.2)
[2019-06-16 08:38] LABS: Anisocytosis Slight; HCT 32.6 % (34.0-46.0); HGB 10.9 gm/dL (11.4-16.0); Hypochromasia Slight; MCH 31.3 pg (25.0-35.0); MCHC 33.3 g/dL (31.0-37.0); Mean Platelet Volume 7.3; Platelet Count 184 k/uL (150-450); Poikilocytosis Slight; RBC 3.46 m/uL (3.80-5.40); RDW 16.8 % (11.5-15.5)
--- NOTE | 2019-06-16 08:47 | P.NPCON ---
History of Present Illness - Reason for Consult acute renal failure - History of Present Illness Reason for consultation: Hypercalcemia History of present illness: Patient is a 58-year-old female seen in renal consultation for hypercalcemia. Patient's calcium level on admission was 14.9 and this morning it is down to 11.2. Patient has history of breast cancer with bone metastasis. I started her on intramuscular calcitonin yesterday. She also received a dose of Zometa 4 mg IV yesterday. She is currently maintained on normal saline at 75 mL an hour. No edema. Urine output is good. GFR is at baseline. Creatinine 0.77 today. She is not on any thiazide diuretics. She denies recent use of Tums or calcium supplementation. Does admit to taking Drisdol once weekly. She presented to the hospital due to nausea as well as generalized pain. Patient states the pain is all over her body but especially complains of pain in her head. No vomiting or diarrhea now. Denies regular use of nonsteroidals. Denies personal or family history of renal disease. Hemodynamically stable. No hematuria or dysuria. No chest pain or shortness of breath. Vital signs are stable. General: The patient appeared well nourished and normally developed. HEENT: Head exam is unremarkable. Neck is without jugular venous distension. LUNGS: Lungs are clear to auscultation and percussion. Breath sounds decreased. HEART: Rate and Rhythm are regular. First and second heart sounds normal. No murmurs, rubs or gallops. ABDOMEN: Abdominal exam reveals normal bowel sounds. Non-tender and non- distended. No evidence of peritonitis. EXTREMITITES: No clubbing, cyanosis, or edema. Past Medical History Past Medical History: Atrial Fibrillation, Cancer, Fibromyalgia, GERD/Reflux Additional Past Medical History / Comment(s): Breast with mets to bones- stage four and thyroid cancer x2, chronic back pain, diverticulitis, break in L3, History of Any Multi-Drug Resistant Organisms: None Reported Past Surgical History: Ablation, Back Surgery, Cholecystectomy, Hysterectomy Additional Past Surgical History / Comment(s): lumpectomy left breast x3, lobectomy thyroid, c5 c6 c7 fusion, bone marrow biopsy, bar/nail in right thigh and plate in right arm, ablation on heart 2012, gallstone removed from bile duct, left breast re-incision for clear margins in 2013,port plcement, 2015 had port removed, kyphoplasty on back x3 and radiofrequncy ablation to back, Past Anesthesia/Blood Transfusion Reactions: Previous Problems w/ Anesthesia Additional Past Anesthesia/Blood Transfusion Reaction / Comment(s): Hard time waking up and hypothermia Past Psychological History: No Psychological Hx Reported Additional Psychological History / Comment(s): Patient lives in ranch style home with . Smoking Status: Never smoker Past Alcohol Use History: None Reported Past Drug Use History: None Reported - Past Family History Son(s) History Unknown: Yes Additional Family Medical History / Comment(s): Small nodule on thyroid, no o ther history Medications and Allergies Home Medications Medication Instructions Recorded Confirmed Type Calcium Carbonate [Tums] 500 - 1,000 mg PO QID PRN 09/15/17 06/15/19 History Ergocalciferol [Vitamin D2] 50,000 unit PO [place] 09/15/17 06/15/19 History Levothyroxine Sodium [Synthroid] 175 mcg PO DAILY@0500 09/15/17 06/15/19 History Loratadine 10 mg PO DAILY 09/15/17 06/15/19 History Omeprazole 20 mg PO DAILY 09/15/17 06/15/19 History ALPRAZolam [Xanax] 0.5 mg PO QID PRN 07/01/18 06/15/19 History Acetaminophen Tab [Tylenol Tab] 1,000 mg PO Q8H 06/15/19 06/15/19 History Colace 50 mg PO BID 06/15/19 06/15/19 History Diclofenac Sodium [Voltaren Gel] 2 gram TOPICAL QID PRN 06/15/19 06/15/19 History HYDROmorphone HCL 2 mg PO Q6H PRN 06/15/19 06/15/19 History Methocarbamol [Robaxin] 750 mg PO Q6H PRN 06/15/19 06/15/19 History Metoprolol Succinate (ER) [Toprol 25 mg PO DAILY 06/15/19 06/15/19 History Xl] Metoprolol Succinate (ER) [Toprol 50 mg PO HS 06/15/19 06/15/19 History Xl] Morphine Sulfate ER [Ms Contin] 30 mg PO Q12HR 06/15/19 06/15/19 History Polyethylene Glycol 3350 [Miralax] 17 gm PO DAILY 06/15/19 06/15/19 History Potassium Chloride [Klor-Con 20] 20 meq PO DAILY 06/15/19 06/15/19 History Rivaroxaban [Xarelto] 20 mg PO W/SUPPER 06/15/19 06/15/19 History Sennosides [Senna] 8.6 mg PO BID 06/15/19 06/15/19 History oxyCODONE HCL [Roxicodone] 10 mg PO Q4H PRN 06/15/19 06/15/19 History Allergies Allergy/AdvReac Type Severity Reaction Status Date / Time gabapentin Allergy Rash/Hives Verified 06/15/19 14:17 vancomycin Allergy Rash/Hives Verified 06/15/19 14:17 Physical Exam Vitals: Vital Signs Temp Pulse Pulse Resp BP BP Pulse Ox 06/16/19 08:11 99.2 F 92 14 106/70 95 06/16/19 05:00 98.2 F 101 H 16 106/72 93 L 06/15/19 20:38 97.8 F 84 19 110/72 95 06/15/19 16:35 98 F 86 20 126/72 94 L 06/15/19 15:54 98.0 F 87 16 110/68 91 L 06/15/19 14:46 82 16 109/80 89 L 06/15/19 12:23 97.6 F 89 18 101/65 95 Intake and Output 06/15/19 06/16/19 06/16/19 22:59 06:59 14:59 Intake Total 1140 1200 Balance 1140 1200 Intake: Intake, IV Titration 300 600 Amount Sodium Chloride 0.9% 1, 300 600 000 ml @ 75 mls/hr IV . [id number] Rx#:[id number] Oral 840 600 Other: Voiding Method Urinal # Voids 2 4 Results - Lab Results Most recent lab results Calcium 11.2 mg/dL (8.4-10.2) H 06/16/19 07:40 Magnesium 2.1 mg/dL (1.6-2.3) 06/15/19 17:54 06/15/19 12:56 06/16/19 07:40 Assessment and Plan Plan: Assessment: 1. Hypercalcemia, [id number]. Etiology is malignancy with bone metastasis as well as component of volume contraction. Improving. 2. Breast cancer with bone metastasis. 3. Benign hypertension. Controlled. Plan: Increase rate of normal saline to 125 mL an hour. Maintain intramuscular calcitonin for now. Status post Zometa on June 15. Discontinue vitamin D. Follow-up pending workup including electrophoresis studies for hypercalcemia. Repeat electrolytes in the morning. Thank you for the consultation. I will continue to follow the patient with you during her hospital stay.
[2019-06-16] MEDS: LORATADINE 10 MG TAB PO SCH (08:49)
[2019-06-16] MEDS: POTASSIUM CHLORIDE ER 20 MEQ TAB.ER PO SCH (08:49)
[2019-06-16] MEDS: SENNOSIDES 8.6 MG TAB PO SCH ×2 (08:49→21:18)
[2019-06-16] MEDS: POLYETHYLENE GLYCOL 3350 17 GM POWD.PACK PO SCH (08:49)
[2019-06-16] MEDS: SODIUM CHLORIDE 0.9% 1,000 ML IV SCH ×2 (08:54→14:55)
[2019-06-16] MEDS: DOCUSATE ORAL SOLN 100 MG/10 ML CUP PO SCH ×2 (08:55→21:24)
[2019-06-16] MEDS: METOPROLOL SUCCINATE (ER) 25 MG TAB.ER.24H PO SCH (08:57)
[2019-06-16] MEDS: ONDANSETRON 4 MG/2 ML VIAL IVP PRN ×2 (09:24→22:59)
[2019-06-16 09:34] LABS: Band Neutrophils % 5 %; Eosinophils # (M) 0.04 k/uL (0-0.7); Ionized Calcium 6.1 mg/dL (4.5-5.3); Metamyelocytes # (M) 0.04 k/uL (0); Metamyelocytes % 1 %; Monocytes # (M) 0.13 k/uL (0-1.0); Myelocytes % 2 %; Neutrophils % (M) 83 %; Nucleated Red Blood Cells 5 /100 WBC (0-0); Total Cells Counted 200
[2019-06-16 09:35] LABS: Lymphocytes # (M) 0.25 k/uL (1.0-4.8); Myelocytes # (M) 0.08 k/uL (0); Polychromasia Present; WBC 4.2 k/uL (3.8-10.6)
[2019-06-16] MEDS: CALCITONIN INJ 200 UNIT/ML (MDV) VIAL IM SCH ×2 (09:43→21:21)
[2019-06-16 11:21] LABS: Angiotensin-1 Converting Enz. 67 U/L (8-52)
[2019-06-16 11:31] LABS: Albumin 3.14 g/dL (3.80-4.90)
[2019-06-16 11:52] VITALS: BMI 28.8
[2019-06-16 12:44] LABS: Vitamin D, 1, 25-Dihydroxy 18 pg/mL (20 - 79)
--- NOTE | 2019-06-16 13:32 | P.HPIM ---
History of Present Illness H&P Date: 06/16/19 This is a 58-year-old female patient of Micheal Nielsen NP with past medical history of breast cancer status post lumpectomy in 2010 with recurrence of invasive ductal carcinoma stage III grade IIIa with lumpectomy July 2013 with bone metastasis and multiple pathologic compression fractures. Status post cervical fusion, right femur nail and titanium joaquín all positive for cancer in December 2018, kyphoplasty L3 followed by kyphoplasty T12, L1, L5-S1 with radiofrequency ablation April 2019, history of thyroid cancer status post lobectomy and radiation therapy, chronic atrial fibrillation status post ablation on Xarelto, hypothyroidism, chronic pain syndrome, gastroesophageal reflux disease, generalized anxiety disorder. Patient's last chemotherapy was performed on 05/13/2019. Last radiation to the cervical, right femur and lumbar areas completed on 02/20/2019. PET scan on 06/06/2019 revealed osseous metastatic disease. Patient has [facility] care in place. Patient states that she was at [facility] from May 21 through the June 02 at which time she underwent lumbar spine procedures. She states she also has a left scapular fracture and rib fractures. Old fractures are pathologic related to cancer with metastatic disease. She had previously received all her care at [facility] and as of Saturday switch to Dr. Ordonez. Patient received a call that she needed to come into the hospital as her calcium was elevated. Patient is complaining of numbness to her face that she has had for a couple weeks along with nausea and vomiting. Patient is complaining of significant pain all over her body. Nurse relates that at 3 AM patient became very anxious and agitated. Her normally gives her a Xanax at 3 in the morning for this reason and instructions have been provided to do the same year. Patient says she has also become very weak and she needs to build ambulate to the bathroom in order for her to care for her at home. Patient came into [facility] emergency center for evaluation. Calcium was 14.9, ionized calcium 8.0, AST 88, ALT 57, alkaline phosphatase 235, troponin negative, albumin 4.2, lactulose within normal limits, BUN 20 creatinine 0.73. INR 1.0. WBC 4.5, hemoglobin 12, platelet count 213. EKG in normal sinus rhythm. Patient was afebrile, blood pressure 101/65, heart rate in the 80s, pulse ox 95% on room air. Patient was started on IM calcitonin and status post 1 dose of zoledronic acid 4 mg IV. Patient was admitted to the [facility] floor and consults requested with nephrology and oncology. Repeat lab work this morning revealed a calcium 11.2 and ionized calcium 6.1, AST 68, ALT 55, alkaline phosphatase 20 and 24. Parathyroid hormone intact was 3.4. Review of Systems Constitutional: Reports anorexia, Reports fatigue, Reports lethargy, Reports malaise, Reports poor appetite, Reports weakness, Denies chills, Denies fever Eyes: denies blurred vision, denies pain Ears, nose, mouth and throat: Denies headache, Denies nasal congestion, Denies nasal discharge, Denies sore throat, Denies vertigo Cardiovascular: Reports chest pain, Denies edema, Denies lightheadedness, Denies palpitations, Denies shortness of breath, Denies syncope Respiratory: Denies cough, Denies cough with sputum, Denies dyspnea, Denies excessive sputum, Denies hemoptysis, Denies home oxygen, Denies wheezing Gastrointestinal: Reports loss of appetite, Reports nausea, Denies abdominal pain, Denies diarrhea, Denies vomiting Genitourinary: Denies dysuria, Denies hematuria, Denies urgency, Denies urinary frequency Musculoskeletal: Reports gait dysfunction, Reports low back pain, Reports muscle weakness, Denies myalgias Integumentary: Denies pruritus, Denies rash Neurological: Reports weakness, Denies change in mentation, Denies change in speech, Denies seizures, Denies syncope Psychiatric: Reports anxiety, Denies depression Endocrine: Denies fatigue, Denies weight change Past Medical History Past Medical History: Atrial Fibrillation, Cancer, Fibromyalgia, GERD/Reflux Additional Past Medical History / Comment(s): breast cancer status post lumpectomy in 2010 with recurrence of invasive ductal carcinoma stage III grade IIIa with lumpectomy July 2013 with bone metastasis and multiple pathologic compression fractures. Status post cervical fusion, right femur nail and titanium joaquín all positive for cancer in December 2018, kyphoplasty L3 followed by kyphoplasty T12, L1, L5-S1 with radiofrequency ablation April 2019, history of thyroid cancer status post lobectomy and radiation therapy, chronic atrial fibrillation status post ablation on Xarelto, hypothyroidism, chronic pain syndrome, gastroesophageal reflux disease, generalized anxiety disorder. History of Any Multi-Drug Resistant Organisms: None Reported Past Surgical History: Ablation, Back Surgery, Cholecystectomy, Hysterectomy Additional Past Surgical History / Comment(s): lumpectomy left breast x3, lobectomy thyroid, c5 c6 c7 fusion, bone marrow biopsy, bar/nail in right thigh and plate in right arm, ablation on heart 2013, gallstone removed from bile duct, left breast re-incision for clear margins in 2013,port plcement, 2015 had port removed, kyphoplasty on back x3 and radiofrequncy ablation to back, Past Anesthesia/Blood Transfusion Reactions: Previous Problems w/ Anesthesia Additional Past Anesthesia/Blood Transfusion Reaction / Comment(s): Hard time waking up and hypothermia Past Psychological History: No Psychological Hx Reported Additional Psychological History / Comment(s): Patient lives in ranch style home with . Smoking Status: Never smoker Past Alcohol Use History: None Reported Additional Past Alcohol Use History / Comment(s): Patient is a lifelong nonsmoker, no marijuana or illicit drug use. Past Drug Use History: None Reported - Past Family History Son(s) History Unknown: Yes Additional Family Medical History / Comment(s): Small nodule on thyroid, no other history Father Additional Family Medical History / Comment(s): Patient does not know any history on her father. Mother Additional Family Medical History / Comment(s): Mother at age 83 from a perforated bowel with fistula to the bladder, COPD history. Brother(s) Additional Family Medical History / Comment(s): Patient has 1 brother that had part of his colon removed. Patient does not have any sisters. Medications and Allergies Home Medications Medication Instructions Recorded Confirmed Type Calcium Carbonate [Tums] 500 - 1,000 mg PO QID PRN 09/15/17 06/15/19 History Ergocalciferol [Vitamin D2] 50,000 unit PO OAKLEY 09/15/17 06/15/19 History Levothyroxine Sodium [Synthroid] 175 mcg PO DAILY@0500 09/15/17 06/15/19 History Loratadine 10 mg PO DAILY 09/15/17 06/15/19 History Omeprazole 20 mg PO DAILY 09/15/17 06/15/19 History ALPRAZolam [Xanax] 0.5 mg PO QID PRN 07/01/18 06/15/19 History Acetaminophen Tab [Tylenol Tab] 1,000 mg PO Q8H 06/15/19 06/15/19 History Colace 50 mg PO BID 06/15/19 06/15/19 History Diclofenac Sodium [Voltaren Gel] 2 gram TOPICAL QID PRN 06/15/19 06/15/19 History HYDROmorphone HCL 2 mg PO Q6H PRN 06/15/19 06/15/19 History Methocarbamol [Robaxin] 750 mg PO Q6H PRN 06/15/19 06/15/19 History Metoprolol Succinate (ER) [Toprol 25 mg PO DAILY 06/15/19 06/15/19 History Xl] Metoprolol Succinate (ER) [Toprol 50 mg PO HS 06/15/19 06/15/19 History Xl] Morphine Sulfate ER [Ms Contin] 30 mg PO Q12HR 06/15/19 06/15/19 History Polyethylene Glycol 3350 [Miralax] 17 gm PO DAILY 06/15/19 06/15/19 History Potassium Chloride [Klor-Con 20] 20 meq PO DAILY 06/15/19 06/15/19 History Rivaroxaban [Xarelto] 20 mg PO W/SUPPER 06/15/19 06/15/19 History Sennosides [Senna] 8.6 mg PO BID 06/15/19 06/15/19 History oxyCODONE HCL [Roxicodone] 10 mg PO Q4H PRN 06/15/19 06/15/19 History Allergies Allergy/AdvReac Type Severity Reaction Status Date / Time gabapentin Allergy Rash/Hives Verified 06/15/19 14:17 vancomycin Allergy Rash/Hives Verified 06/15/19 14:17 Physical Exam Vitals: Vital Signs Temp Pulse Pulse Resp BP BP Pulse Ox 06/16/19 08:11 99.2 F 92 14 106/70 95 06/16/19 05:00 98.2 F 101 H 16 106/72 93 L 06/15/19 20:38 97.8 F 84 19 110/72 95 06/15/19 16:35 98 F 86 20 126/72 94 L 06/15/19 15:54 98.0 F 87 16 110/68 91 L 06/15/19 14:46 82 16 109/80 89 L 06/15/19 12:23 97.6 F 89 18 101/65 95 Intake and Output 06/15/19 06/16/19 06/16/19 22:59 06:59 14:59 Intake Total 1140 1200 Balance 1140 1200 Intake: Intake, IV Titration 300 600 Amount Sodium Chloride 0.9% 1, 300 600 000 ml @ 75 mls/hr IV . [id number] ONE Rx#:[id number] Oral 840 600 Other: Voiding Method Urinal # Voids 2 4 Gen: This is a 58-year-old female area patient is resting in bed and appears to be comfortable at this time. Patient has pain with minimal movement in bed. HEENT: Head is atraumatic, normocephalic. Pupils equal, round. Sclerae is anicteric. Oral mucous membranes are dry. NECK: Supple. No JVD. No lymphadenopathy. No thyromegaly. LUNGS: Clear to auscultation. No wheezes or rhonchi. No intercostal retractions. HEART: Regular rate and rhythm. No murmur. ABDOMEN: Soft. Bowel sounds are present. No masses. No tenderness. EXTREMITIES: No pedal edema. No calf tenderness. NEUROLOGICAL: Patient is awake, alert and oriented x3. Cranial nerves 2 through 12 are grossly intact. Results CBC & Chem 7: 06/16/19 07:40 06/16/19 07:40 Labs: Abnormal Lab Results - Last 24 Hours (Table) 06/15/19 06/15/19 06/15/19 Range/Units 12:56 12:56 14:42 RBC (3.80-5.40) m/uL Hgb (11.4-16.0) gm/dL Hct (34.0-46.0) % RDW 16.5 H (11.5-15.5) % Lymphocytes # (Manual) 0.50 L (1.0-4.8) k/uL Metamyelocytes # (Man) 0.09 H (0) k/uL Myelocytes # (Manual) 0.27 H (0) k/uL Nucleated RBCs 6 H (0-0) /100 WBC Carbon Dioxide (22-30) mmol/L BUN 20 H (7-17) mg/dL Glucose 108 H (74-99) mg/dL Calcium 14.9 H* (8.4-10.2) mg/dL Ionized Calcium Radha 8.0 H* (4.5-5.3) mg/dL AST 88 H (14-36) U/L ALT 57 H (9-52) U/L Alkaline Phosphatase 235 H (38-126) U/L Total Protein (PEP) (6.2-8.2) g/dL PTH Intact (14.0-72.0) pg/mL 06/15/19 06/15/19 06/15/19 Range/Units 17:54 17:54 17:54 RBC (3.80-5.40) m/uL Hgb (11.4-16.0) gm/dL Hct (34.0-46.0) % RDW (11.5-15.5) % Lymphocytes # (Manual) (1.0-4.8) k/uL Metamyelocytes # (Man) (0) k/uL Myelocytes # (Manual) (0) k/uL Nucleated RBCs (0-0) /100 WBC Carbon Dioxide 32 H (22-30) mmol/L BUN (7-17) mg/dL Glucose 113 H (74-99) mg/dL Calcium 14.7 H* (8.4-10.2) mg/dL Ionized Calcium Radha (4.5-5.3) mg/dL AST 76 H (14-36) U/L ALT 56 H (9-52) U/L Alkaline Phosphatase 218 H (38-126) U/L Total Protein (PEP) 5.8 L (6.2-8.2) g/dL PTH Intact 3.4 L (14.0-72.0) pg/mL 06/16/19 06/16/19 Range/Units 07:40 07:40 RBC 3.46 L (3.80-5.40) m/uL Hgb 10.9 L (11.4-16.0) gm/dL Hct 32.6 L (34.0-46.0) % RDW 16.8 H (11.5-15.5) % Lymphocytes # (Manual) 0.25 L (1.0-4.8) k/uL Metamyelocytes # (Man) 0.04 H (0) k/uL Myelocytes # (Manual) 0.08 H (0) k/uL Nucleated RBCs 5 H (0-0) /100 WBC Carbon Dioxide (22-30) mmol/L BUN (7-17) mg/dL Glucose 117 H (74-99) mg/dL Calcium 11.2 H (8.4-10.2) mg/dL Ionized Calcium Radha 6.1 H* (4.5-5.3) mg/dL AST 68 H (14-36) U/L ALT 55 H (9-52) U/L Alkaline Phosphatase 224 H (38-126) U/L Total Protein (PEP) (6.2-8.2) g/dL PTH Intact (14.0-72.0) pg/mL Thrombosis Risk Factor Assmnt - DVT/VTE Prophylaxis DVT/VTE Prophylaxis: Pharmacologic Prophylaxis ordered - Choose All That Apply Each Factor Represents 1 point: Age 41-60 years, Obesity (BMI >25) Other Risk Factors: No Other congenital or acquired thrombophilia - If yes, enter type in comment: No Thrombosis Risk Factor Assessment Total Risk Factor Score: 2 Thrombosis Risk Factor Assessment Level: Low Risk Assessment and Plan Plan: 1. Hypercalcemia secondary to malignancy with metastatic disease to the bone. Nephrology consult appreciated. IV fluids been increased 125 mL per hour, continue IM calcitonin, discontinue vitamin D. Electrophoresis studies in p lace. 2. Breast cancer with bone metastasis status post multiple surgical interventions. Oncology consult. 3. Paroxysmal atrial fibrillation. Continue Toprol-XL 25 mg in the morning and 50 mg at bedtime, Xarelto 20 mg daily. 4. Hypothyroidism. Continue levothyroxine 175 g daily. 5. Gastroesophageal reflux disease and GI prophylaxis. Continue Protonix. 6. Chronic pain syndrome. Continue Voltaren gel, Robaxin 750 mg every 6 hours as needed, OxyContin 30 mg extended release every 12 hours, oxycodone 10 mg every 4 hours as needed. 7. Seasonal ALLERGIES. Continue Claritin. 8. History of thyroid cancer. 9. Generalized anxiety disorder. Continue Xanax or 0.5 mg 4 times daily as needed. 10. Elevated liver function tests secondary to liver steatosis. Patient will be admitted to the hospital for a minimum of 2 night stay. Discharge plan: Return home with [facility]. Impression and plan of care have been directed as dictated by the signing physician. Elayne Ambrosio nurse practitioner acting as scribe for signing physician.
[2019-06-16] MEDS: RIVAROXABAN 20 MG TAB PO SCH (17:46)
--- NOTE | 2019-06-16 17:47 | P.CONS ---
History of Present Illness - Reason for Consult Consult date: 06/16/19 hypercalcemia, met breast cancer Requesting physician: Saulo Cutler - Chief Complaint abn lab, MS pain, weakness - History of Present Illness Ms. Godinez is a very pleasant female pt diagnosed with left breast cancer in 06/2013, treated with lumpectomy and sentinel nodes biopsy, pathology revealed T2N2a disease (7/ nodes were positive), ER/OR were strongly positive, HER2/CLEO negative, she had adjuvant chemotherapy with AC-T, tamoxifen, had adjuvant radiation therapy completed in 06/2014. She did well until until December/2018 (she was still on tamoxifen at that time) when she presented with significant back pain, MRI of her spine revealed multiple osseous metastasis in multiple areas in her spine. 01/07/19 she had cervical disectomy/fusion of C5-C& and corpectomy of C6, on 03/05/19, she had right humerous currtage,on 03/23/19,she had kyphoplasty of L3, 05/05/19, kypholasty of T12,L1,L5,S1, also had palliative XRT. The pathology from her surgeries were positive for metastatic carcinoma consistent with breast, HER2/CLEO negative, ER was 35%, OR was 1%. She was started on faslodex and ibrance in March/2019. She only had one cycle of ibrance, ended on 05/14/19, she had neutropenia, weakness, multiple admissions to [facility] and prolonged rehab. PET 06/16 revealed diffuse osseous metastasis, no visceral disease. She came to office to establish care with Dr. Ordonez, she was having c/o weakness, very tired, no appetite, lost significant weight, gen eralized bone pain in back and ribs, constipation, exertional dyspnea, RLS worse, denied nausea, vomiting, headaches. On lab work she had a Ca++ >14 and was called to go to ER. She is a little better today then yesterday on admit. Review of Systems 14 point ROS is negative except as stated in HPI Past Medical History Past Medical History: Atrial Fibrillation, Cancer, Fibromyalgia, GERD/Reflux Additional Past Medical History / Comment(s): breast cancer status post lumpectomy in 2010 with recurrence of invasive ductal carcinoma stage III grade IIIa with lumpectomy July 2013 with bone metastasis and multiple pathologic compression fractures. Status post cervical fusion, right femur nail and t itanium joaquín all positive for cancer in December 2018, kyphoplasty L3 followed by kyphoplasty T12, L1, L5-S1 with radiofrequency ablation April 2019, history of thyroid cancer status post lobectomy and radiation therapy, chronic atrial fibrillation status post ablation on Xarelto, hypothyroidism, chronic pain syndrome, gastroesophageal reflux disease, generalized anxiety disorder. History of Any Multi-Drug Resistant Organisms: None Reported Past Surgical History: Ablation, Back Surgery, Cholecystectomy, Hysterectomy Additional Past Surgical History / Comment(s): lumpectomy left breast x3, lobectomy thyroid, c5 c6 c7 fusion, bone marrow biopsy, bar/nail in right thigh and plate in right arm, ablation on heart 2012, gallstone removed from bile duct, left breast re-incision for clear margins in 2013,port plcement, 2015 had port removed, kyphoplasty on back x3 and radiofrequncy ablation to back, Past Anesthesia/Blood Transfusion Reactions: Previous Problems w/ Anesthesia Additional Past Anesthesia/Blood Transfusion Reaction / Comm: Hard time waking up and hypothermia Past Psychological History: No Psychological Hx Reported Additional Psychological History / Comment(s): Patient lives in ranch style home with . Smoking Status: Never smoker Past Alcohol Use History: None Reported Additional Past Alcohol Use History / Comment(s): Patient is a lifelong nonsmoker, no marijuana or illicit drug use. Past Drug Use History: None Reported - Past Family History Son(s) History Unknown: Yes Additional Family Medical History / Comment(s): Small nodule on thyroid, no other history Father Additional Family Medical History / Comment(s): Patient does not know any history on her father. Mother Additional Family Medical History / Comment(s): Mother at age 83 from a pe rforated bowel with fistula to the bladder, COPD history. Brother(s) Additional Family Medical History / Comment(s): Patient has 1 brother that had part of his colon removed. Patient does not have any sisters. Medications and Allergies Home Medications Medication Instructions Recorded Confirmed Type Calcium Carbonate [Tums] 500 - 1,000 mg PO QID PRN 09/15/17 06/15/19 History Ergocalciferol [Vitamin D2] 50,000 unit PO OAKLEY 09/15/17 06/15/19 History Levothyroxine Sodium [Synthroid] 175 mcg PO DAILY@0500 02/18/18 11/18/19 History Loratadine 10 mg PO DAILY 09/15/17 06/15/19 History Omeprazole 20 mg PO DAILY 09/15/17 06/15/19 History ALPRAZolam [Xanax] 0.5 mg PO QID PRN 07/01/18 06/15/19 History Acetaminophen Tab [Tylenol Tab] 1,000 mg PO Q8H 06/15/19 06/15/19 History Colace 50 mg PO BID 06/15/19 06/15/19 History Diclofenac Sodium [Voltaren Gel] 2 gram TOPICAL QID PRN 06/15/19 06/15/19 History HYDROmorphone HCL 2 mg PO Q6H PRN 06/15/19 06/15/19 History Methocarbamol [Robaxin] 750 mg PO Q6H PRN 06/15/19 06/15/19 History Metoprolol Succinate (ER) [Toprol 25 mg PO DAILY 06/15/19 06/15/19 History Xl] Metoprolol Succinate (ER) [Toprol 50 mg PO HS 06/15/19 06/15/19 History Xl] Morphine Sulfate ER [Ms Contin] 30 mg PO Q12HR 06/15/19 06/15/19 History Polyethylene Glycol 3350 [Miralax] 17 gm PO DAILY 06/15/19 06/15/19 History Potassium Chloride [Klor-Con 20] 20 meq PO DAILY 06/15/19 06/15/19 History Rivaroxaban [Xarelto] 20 mg PO W/SUPPER 06/15/19 06/15/19 History Sennosides [Senna] 8.6 mg PO BID 06/15/19 06/15/19 History oxyCODONE HCL [Roxicodone] 10 mg PO Q4H PRN 06/15/19 06/15/19 History Allergies Allergy/AdvReac Type Severity Reaction Status Date / Time gabapentin Allergy Rash/Hives Verified 06/15/19 14:17 vancomycin Allergy Rash/Hives Verified 06/15/19 14:17 Physical Exam Vitals: Vital Signs Temp Pulse Pulse Resp BP BP Pulse Ox 06/16/19 11:52 98.6 F 104 H 12 100/56 93 L 06/16/19 08:11 99.2 F 92 14 106/70 95 06/16/19 05:00 98.2 F 101 H 16 106/72 93 L 06/15/19 20:38 97.8 F 84 19 110/72 95 06/15/19 16:35 98 F 86 20 126/72 94 L 06/15/19 15:54 98.0 F 87 16 110/68 91 L Intake and Output 06/16/19 06/16/19 06/16/19 06:59 14:59 22:59 Intake Total 1200 Balance 1200 Intake: Intake, IV Titration 600 Amount Sodium Chloride 0.9% 1, 600 000 ml @ 75 mls/hr IV . [id number] ONE Rx#:[id number] Oral 600 Other: Voiding Method Urinal Bedpan Urinal # Voids 4 Weight 78.018 kg - Constitutional General appearance: cooperative, mild distress, obese - EENT Eyes: anicteric sclerae, EOMI ENT: hearing grossly normal, normal oropharynx - Neck Neck: no lymphadenopathy - Respiratory Respiratory: bilateral: diminished - Cardiovascular Rhythm: regular Heart sounds: normal: S1, S2 Abnormal Heart Sounds: no systolic murmur, no diastolic murmur, no rub, no S3 Gallop, no S4 Gallop, no click, no other leg Peripheral Edema: bilateral: None - Gastrointestinal General gastrointestinal: no absent bowel sounds, no decreased bowel sounds, no distended, no hepatomegaly, no hyperactive bowel sounds, normal bowel sounds, no organomegaly, no rigid, no scaphoid, soft, no splenomegaly, no tenderness, no umbilical hernia, no ventral hernia - Neurologic Neurologic: CNII-XII intact - Musculoskeletal Musculoskeletal: generalized weakness - Psychiatric Psychiatric: A&O x's 3, appropriate affect, intact judgment & insight Results CBC & Chem 7: 06/16/19 07:40 06/16/19 07:40 Labs: Abnormal Lab Results - Last 24 Hours (Table) 06/15/19 06/15/19 06/15/19 Range/Units 14:42 17:54 17:54 RBC (3.80-5.40) m/uL Hgb (11.4-16.0) gm/dL Hct (34.0-46.0) % RDW (11.5-15.5) % Lymphocytes # (Manual) (1.0-4.8) k/uL Metamyelocytes # (Man) (0) k/uL Myelocytes # (Manual) (0) k/uL Nucleated RBCs (0-0) /100 WBC Carbon Dioxide 32 H (22-30) mmol/L Glucose 113 H (74-99) mg/dL Calcium 14.7 H* (8.4-10.2) mg/dL Ionized Calcium Radha 8.0 H* (4.5-5.3) mg/dL AST 76 H (14-36) U/L ALT 56 H (9-52) U/L Alkaline Phosphatase 218 H (38-126) U/L Total Protein (PEP) (6.2-8.2) g/dL Albumin (PEP) (3.80-4.90) g/dL Angiotensin Convert Enz 67 H (8-52) U/L Vit D 1,25-Dihydroxy 18 L (20 - 79) pg/mL PTH Intact (14.0-72.0) pg/mL 06/15/19 06/15/19 06/16/19 Range/Units 17:54 17:54 07:40 RBC 3.46 L (3.80-5.40) m/uL Hgb 10.9 L (11.4-16.0) gm/dL Hct 32.6 L (34.0-46.0) % RDW 16.8 H (11.5-15.5) % Lymphocytes # (Manual) 0.25 L (1.0-4.8) k/uL Metamyelocytes # (Man) 0.04 H (0) k/uL Myelocytes # (Manual) 0.08 H (0) k/uL Nucleated RBCs 5 H (0-0) /100 WBC Carbon Dioxide (22-30) mmol/L Glucose (74-99) mg/dL Calcium (8.4-10.2) mg/dL Ionized Calcium Radha (4.5-5.3) mg/dL AST (14-36) U/L ALT (9-52) U/L Alkaline Phosphatase (38-126) U/L Total Protein (PEP) 5.8 L (6.2-8.2) g/dL Albumin (PEP) 3.14 L (3.80-4.90) g/dL Angiotensin Convert Enz (8-52) U/L Vit D 1,25-Dihydroxy (20 - 79) pg/mL PTH Intact 3.4 L (14.0-72.0) pg/mL 06/16/19 Range/Units 07:40 RBC (3.80-5.40) m/uL Hgb (11.4-16.0) gm/dL Hct (34.0-46.0) % RDW (11.5-15.5) % Lymphocytes # (Manual) (1.0-4.8) k/uL Metamyelocytes # (Man) (0) k/uL Myelocytes # (Manual) (0) k/uL Nucleated RBCs (0-0) /100 WBC Carbon Dioxide (22-30) mmol/L Glucose 117 H (74-99) mg/dL Calcium 11.2 H (8.4-10.2) mg/dL Ionized Calcium Radha 6.1 H* (4.5-5.3) mg/dL AST 68 H (14-36) U/L ALT 55 H (9-52) U/L Alkaline Phosphatase 224 H (38-126) U/L Total Protein (PEP) (6.2-8.2) g/dL Albumin (PEP) (3.80-4.90) g/dL Angiotensin Convert Enz (8-52) U/L Vit D 1,25-Dihydroxy (20 - 79) pg/mL PTH Intact (14.0-72.0) pg/mL Assessment and Plan (1) Hypercalcemia Narrative/Plan: Malignant hypercalcemia. Improved today with admin of zometa, fluids and c alcitonin. Labs in AM Current Visit: Yes Status: Acute Priority: High Code(s): E83.52 - HYPE RCALCEMIA SNOMED Code(s): 02707954 (2) Metastatic breast cancer Narrative/Plan: Plan is for dose reduced ibrance and faslodex. These orders are in process pending approval and receipt of meds. This will begin outpatient. Pt knows the plan. Current Visit: Yes Status: Acute Priority: High Code(s): C50.919 - MALIGNANT NEOPLASM OF UNSP SITE OF UNSPECIFIED FEMALE BREAST SNOMED Code(s): 097660754
[2019-06-16] MEDS: oxyCODONE ER 10 MG TAB.ER.12H PO SCH (21:16)
[2019-06-16] MEDS: METOPROLOL SUCCINATE (ER) 50 MG TAB.ER.24H PO SCH (21:21)
[2019-06-17] MEDS: SODIUM CHLORIDE 0.9% 1,000 ML IV SCH ×3 (00:20→18:20)
[2019-06-17] MEDS: METHOCARBAMOL 750 MG TAB PO PRN (02:12)
[2019-06-17] MEDS: ACETAMINOPHEN TAB 500 MG TAB PO SCH ×3 (05:23→20:45)
[2019-06-17] MEDS: LEVOTHYROXINE 100 MCG TAB PO SCH (05:23)
[2019-06-17] MEDS: LEVOTHYROXINE 75 MCG TAB PO SCH (05:24)
[2019-06-17 07:57] LABS: African American GFR (CKD) >90 (>60 ml/min/1.73 sqM); Anion Gap 6 mmol/L; Blood Urea Nitrogen 9 mg/dL (7-17); Calcium 8.6 mg/dL (8.4-10.2); Carbon Dioxide 26 mmol/L (22-30); Chloride 107 mmol/L (98-107); Glucose 91 mg/dL (74-99); Magnesium 1.8 mg/dL (1.6-2.3); Non-African American GFR(CKD) >90 (>60 ml/min/1.73 sqM); Potassium 3.6 mmol/L (3.5-5.1); Sodium 139 mmol/L (137-145)
--- NOTE | 2019-06-17 09:04 | P.PN ---
Subjective Patient is seen in follow-up for hypercalcemia. Calcium level today is down to 8.6. Still feels nauseous. Vomited last night. No edema. Has been voiding. Vital signs are stable. General: The patient appeared well nourished and normally developed. HEENT: Head exam is unremarkable. Neck is without jugular venous distension. LUNGS: Lungs are clear to auscultation and percussion. Breath sounds decreased. HEART: Rate and Rhythm are regular. First and second heart sounds normal. No murmurs, rubs or gallops. ABDOMEN: Abdominal exam reveals normal bowel sounds. Non-tender and non- distended. No evidence of peritonitis. EXTREMITITES: No clubbing, cyanosis, or edema. Objective - Vital Signs Vital signs: Vital Signs Temp 98.3 F 06/17/19 05:00 Pulse 98 06/17/19 05:00 Resp 16 06/17/19 05:00 BP 109/71 06/17/19 05:00 Pulse Ox 95 06/17/19 05:00 Intake & Output 06/16/19 06/17/19 06/17/19 18:59 06:59 18:59 Intake Total 1000 1027.5 Output Total 780 Balance 1000 247.5 Weight 78.018 kg Intake: Intake, IV Titration 1000 437.5 Amount Sodium Chloride 0.9% 1, 1000 437.5 000 ml @ 125 mls/hr IV . Q8H [facility] Rx#:[id number] Oral 590 Output: Urine 780 Other: Voiding Method Bedpan Bedpan Urinal Urinal # Voids 4 - Labs CBC & Chem 7: 06/16/19 07:40 06/17/19 07:00 Labs: Abnormal Lab Results - Last 24 Hours (Table) 06/15/19 06/15/19 06/16/19 Range/Units 17:54 17:54 07:40 Lymphocytes # (Manual) (1.0-4.8) k/uL Metamyelocytes # (Man) (0) k/uL Myelocytes # (Manual) (0) k/uL Nucleated RBCs (0-0) /100 WBC Ionized Calcium Radha (4.5-5.3) mg/dL Albumin (PEP) 3.14 L (3.80-4.90) g/dL Angiotensin Convert Enz 67 H (8-52) U/L Vit D 1,25-Dihydroxy 18 L (20 - 79) pg/mL PTH Intact 4.2 L (14.0-72.0) pg/mL 06/16/19 06/16/19 Range/Units 07:40 07:40 Lymphocytes # (Manual) 0.25 L (1.0-4.8) k/uL Metamyelocytes # (Man) 0.04 H (0) k/uL Myelocytes # (Manual) 0.08 H (0) k/uL Nucleated RBCs 5 H (0-0) /100 WBC Ionized Calcium Radha 6.1 H* (4.5-5.3) mg/dL Albumin (PEP) (3.80-4.90) g/dL Angiotensin Convert Enz (8-52) U/L Vit D 1,25-Dihydroxy (20 - 79) pg/mL PTH Intact (14.0-72.0) pg/mL Assessment and Plan Plan: Assessment: 1. Hypercalcemia, [id number]. Etiology is malignancy with bone metastasis as well as component of volume contraction. Improved. PTH appropriately suppressed. Vitamin D level 53.9. 1,25 D3 18. ANJANA mildly elevated at 67. 2. Breast cancer with bone metastasis. 3. Benign hypertension. Controlled. Plan: Decreased rate of normal saline to 75 mL an hour. Discontinue calcitonin. Status post Zometa on June 15. Discontinued vitamin D. Follow-up urine immunofixation.
[2019-06-17] MEDS: oxyCODONE ER 10 MG TAB.ER.12H PO SCH ×2 (09:45→20:43)
[2019-06-17] MEDS: LORATADINE 10 MG TAB PO SCH (10:55)
[2019-06-17] MEDS: DOCUSATE ORAL SOLN 100 MG/10 ML CUP PO SCH (10:55)
[2019-06-17] MEDS: OMEPRAZOLE 20MG PO SCH (10:55)
[2019-06-17] MEDS: POLYETHYLENE GLYCOL 3350 17 GM POWD.PACK PO SCH (10:56)
[2019-06-17] MEDS: METOPROLOL SUCCINATE (ER) 25 MG TAB.ER.24H PO SCH (10:56)
[2019-06-17] MEDS: SENNOSIDES 8.6 MG TAB PO SCH (10:56)
[2019-06-17] MEDS: POTASSIUM CHLORIDE ER 20 MEQ TAB.ER PO SCH (10:58)
--- NOTE | 2019-06-17 14:06 | P.PN ---
Subjective Progress Note Date: 06/17/19 This is a 58-year-old female patient of Micheal Nielsen NP with past medical history of breast cancer status post lumpectomy in 2010 with recurrence of invasive ductal carcinoma stage III grade IIIa with lumpectomy July 2013 with bone metastasis and multiple pathologic compression fractures. Status post cervical fusion, right femur nail and titanium joaquín all positive for cancer in December 2018, kyphoplasty L3 followed by kyphoplasty T12, L1, L5-S1 with radiofrequency ablation April 2019, history of thyroid cancer status post lobectomy and radiation therapy, chronic atrial fibrillation status post ablation on Xarelto, hypothyroidism, chronic pain syndrome, gastroesophageal reflux disease, generalized anxiety disorder. Patient's last chemotherapy was performed on 05/13/2019. Last radiation to the cervical, right femur and lumbar areas completed on 02/20/2019. PET scan on 06/06/2019 revealed osseous metastatic disease. Patient has [facility] care in place. Patient states that she was at [facility] from May 21 through the June 02 at which time she underwent lumbar spine procedures. She states she also has a left scapular fracture and rib fractures. Old fractures are pathologic related to cancer with metastatic disease. She had previously received all her care at [facility] and as of Saturday switch to Dr. Ordonez. Patient received a call that she needed to come into the hospital as her calcium was elevated. Patient is complaining of numbness to her face that she has had for a couple weeks along with nausea and vomiting. Patient is complaining of significant pain all over her body. Nurse relates that at 3 AM patient became very anxious and agitated. Her normally gives her a Xanax at 3 in the morning for this reason and instructions have been provided to do the same year. Patient says she has also become very weak and she needs to build ambulate to the bathroom in order for her to care for her at home. Patient came into [facility] emergency center for evaluation. Calcium was 14.9, ionized calcium 8.0, AST 88, ALT 57, alkaline phosphatase 235, troponin negative, albumin 4.2, electrolytes within normal limits, BUN 20 creatinine 0.73. INR 1.0. WBC 4.5, hemoglobin 12, platelet count 213. EKG in normal sinus rhythm. Patient was afebrile, blood pressure 101/65, heart rate in the 80s, pulse ox 95% on room air. Patient was started on IM calcitonin and status post 1 dose of zoledronic acid 4 mg IV. Patient was admitted to the [facility] floor and consults requested with nephrology and oncology. Repeat lab work this morning revealed a calcium 11.2 and ionized calcium 6.1, AST 68, ALT 55, alkaline phosphatase 224. Parathyroid hormone intact was 3.4. 06/17: Repeat calcium this morning is 8.6. Dr. Mccormick has recommended decreasing IV fluids to 75 mL per hour, discontinue calcitonin and follow-up on urine immunofixation. Patient states she continues to have significant nausea. She did have an emesis last evening. She thinks the nausea and vomiting has been related to the MS Contin which should be out of her system soon. She denies having any bowel movement. She does complain of abdominal pain in epigastric area. Carafate ordered as well as a lipase level. Physical therapy added. Review of Systems Constitutional: Reports anorexia, Reports fatigue, Reports lethargy, Reports malaise, Reports poor appetite, Reports weakness, Denies chills, Denies fever Eyes: denies blurred vision, denies pain Ears, nose, mouth and throat: Denies headache, Denies nasal congestion, Denies nasal discharge, Denies sore throat, Denies vertigo Cardiovascular: Reports chest pain, Denies edema, Denies lightheadedness, Denies palpitations, Denies shortness of breath, Denies syncope Respiratory: Denies cough, Denies cough with sputum, Denies dyspnea, Denies excessive sputum, Denies hemoptysis, Denies home oxygen, Denies wheezing Gastrointestinal: Reports loss of appetite, Reports nausea, reports abdominal pain, Denies diarrhea, reports vomiting Genitourinary: Denies dysuria, Denies hematuria, Denies urgency, Denies urinary frequency Musculoskeletal: Reports gait dysfunction, Reports low back pain, Reports muscle weakness, Denies myalgias Integumentary: Denies pruritus, Denies rash Neurological: Reports weakness, Denies change in mentation, Denies change in speech, Denies seizures, Denies syncope Psychiatric: Reports anxiety, Denies depression Endocrine: Denies fatigue, Denies weight change Objective - Vital Signs Vital signs: Vital Signs Temp 98.3 F 06/17/19 05:00 Pulse 98 06/17/19 05:00 Resp 16 06/17/19 05:00 BP 109/71 06/17/19 05:00 Pulse Ox 95 06/17/19 05:00 Intake & Output 06/16/19 06/17/19 06/17/19 18:59 06:59 18:59 Intake Total 1000 1027.5 Output Total 780 Balance 1000 247.5 Weight 78.018 kg Intake: Intake, IV Titration 1000 437.5 Amount Sodium Chloride 0.9% 1, 1000 437.5 000 ml @ 125 mls/hr IV . Q8H [facility] Rx#:[id number] Oral 590 Output: Urine 780 Other: Voiding Method Bedpan Bedpan Urinal Urinal # Voids 4 - Exam Gen: This is a 58-year-old female area patient is resting in bed and appears to be uncomfortable at this time. Patient is complaining of active nausea. HEENT: Head is atraumatic, normocephalic. Pupils equal, round. Sclerae is anicteric. Oral mucous membranes are dry. NECK: Supple. No JVD. No lymphadenopathy. No thyromegaly. LUNGS: Clear to auscultation. No wheezes or rhonchi. No intercostal retraction s. HEART: Regular rate and rhythm. No murmur. ABDOMEN: Soft. Bowel sounds are present. No masses. Epigastric tenderness. EXTREMITIES: No pedal edema. No calf tenderness. NEUROLOGICAL: Patient is awake, alert and oriented x3. Cranial nerves 2 through 12 are grossly intact. - Labs CBC & Chem 7: 06/16/19 07:40 06/17/19 07:00 Labs: Abnormal Lab Results - Last 24 Hours (Table) 06/15/19 06/15/19 06/16/19 Range/Units 17:54 17:54 07:40 Albumin (PEP) 3.14 L (3.80-4.90) g/dL Angiotensin Convert Enz 67 H (8-52) U/L Vit D 1,25-Dihydroxy 18 L (20 - 79) pg/mL PTH Intact 4.2 L (14.0-72.0) pg/mL Assessment and Plan Plan: 1. Hypercalcemia secondary to malignancy with metastatic disease to the bone. Nephrology consult appreciated. IV fluids decreased to 75 mL per hour, discontinue calcitonin, discontinue vitamin D. Electrophoresis studies in plac e. 2. Breast cancer with bone metastasis status post multiple surgical interventions. Oncology consult. 3. Paroxysmal atrial fibrillation. Continue Toprol-XL 25 mg in the morning and 50 mg at bedtime, Xarelto 20 mg daily. 4. Hypothyroidism. Continue levothyroxine 175 g daily. 5. Gastroesophageal reflux disease and GI prophylaxis. Continue Protonix. 6. Chronic pain syndrome. Continue Voltaren gel, Robaxin 750 mg every 6 hours as needed, OxyContin 30 mg extended release every 12 hours, oxycodone 10 mg every 4 hours as needed. 7. Seasonal ALLERGIES. Continue Claritin. 8. History of thyroid cancer. 9. Generalized anxiety disorder. Continue Xanax or 0.5 mg 4 times daily as needed. 10. Elevated liver function tests secondary to liver steatosis. 11. Nausea and vomiting most likely secondary to reaction to morphine. Continue Zofran, Pepcid, Carafate added. Check lipase level Discharge plan: Return home with [facility]. Physical therapy consult added. Impression and plan of care have been directed as dictated by the signing physician. Elayne Ambrosio nurse practitioner acting as scribe for signing physician.
[2019-06-17] MEDS: SUCRALFATE 1 GM TAB PO SCH ×2 (15:36→18:20)
[2019-06-17] MEDS: RIVAROXABAN 20 MG TAB PO SCH (15:36)
[2019-06-17] MEDS ORDERED: MAGNESIUM HYDROXIDE 2,400 MG/10 ML CUP PO PRN (18:19)
--- NOTE | 2019-06-17 18:26 | P.PN ---
Subjective Progress Note Date: 06/17/19 Principal diagnosis: Hypercalcemia, metastatic breast cancer In follow-up today patient has complaints of constipation, still having pain in the legs, persistent weakness, difficulty tolerating liquid/suspension medications, nausea this morning that prevented her from taking many of her pills. She has not been out of bed today Objective - Vital Signs Vital signs: Vital Signs Temp 97.9 F 06/17/19 11:57 Pulse 106 H 06/17/19 15:59 Resp 18 06/17/19 15:59 BP 100/61 06/17/19 11:57 Pulse Ox 94 L 06/17/19 11:57 Intake & Output 06/16/19 06/17/19 06/17/19 18:59 06:59 18:59 Intake Total 1000 1027.5 600 Output Total 780 Balance 1000 247.5 600 Weight 78.018 kg Intake: Intake, IV Titration 1000 437.5 600 Amount Sodium Chloride 0.9% 1, 1000 437.5 600 000 ml @ 75 mls/hr IV . [id number] [facility] Rx#:[id number] Oral 590 Output: Urine 780 Other: Voiding Method Bedpan Bedpan Bedpan Urinal Urinal Urinal # Voids 4 - Constitutional General appearance: Present: cooperative, mild distress, obese - EENT Eyes: Present: anicteric sclerae, EOMI ENT: Present: hearing grossly normal - Respiratory Respiratory: bilateral: CTA, diminished - Cardiovascular Rhythm: regular Heart sounds: normal: S1, S2 - Peripheral edema leg Peripheral Edema: bilateral: None - Gastrointestinal General gastrointestinal: Present: normal bowel sounds, soft, tenderness Localized gastrointestinal: tender: diffuse (no rebound) - Integumentary Integumentary: Present: pale - Neurologic Neurologic: Present: CNII-XII intact - Musculoskeletal Musculoskeletal: Present: generalized weakness - Psychiatric Psychiatric: Present: A&O x's 3, appropriate affect, intact judgment & insight - Labs CBC & Chem 7: 06/16/19 07:40 06/17/19 07:00 Assessment and Plan (1) Hypercalcemia Narrative/Plan: Malignant hypercalcemia. Improved to 11.2today with admin of zometa, fluids and calcitonin. continue lab monitoring Current Visit: Yes Status: Acute Priority: High Code(s): E83.52 - HYPERCALCEMIA SNOMED Code(s): 30857434 (2) Metastatic breast cancer Narrative/Plan: Plan is for dose reduced ibrance and faslodex. These orders are in process pending approval and receipt of meds. This will begin outpatient. Pt knows the plan. Current Visit: Yes Status: Acute Priority: High Code(s): C50.919 - MALIGNANT NEOPLASM OF UNSP SITE OF UNSPECIFIED FEMALE BREAST SNOMED Code(s): 509053016 Plan: Patient is slowly improving. Adjusted meds to her preference. Additional PRN meds for constipation added as she is c/po constipation. Anticipate another 1-2 days admission for resolution and management of all of her symptoms.
[2019-06-17] MEDS: SENNOSIDES-DOCUSATE SODIUM 1 EACH TAB PO SCH (20:44)
[2019-06-17] MEDS: METOPROLOL SUCCINATE (ER) 50 MG TAB.ER.24H PO SCH (20:45)
[2019-06-18] MEDS: SODIUM CHLORIDE 0.9% 1,000 ML IV SCH ×2 (04:25→20:21)
[2019-06-18] MEDS: LEVOTHYROXINE 75 MCG TAB PO SCH (05:40)
[2019-06-18] MEDS: LEVOTHYROXINE 100 MCG TAB PO SCH (05:40)
[2019-06-18] MEDS: ACETAMINOPHEN TAB 500 MG TAB PO SCH ×3 (05:40→20:18)
[2019-06-18] MEDS: OMEPRAZOLE 20MG PO SCH (08:23)
[2019-06-18 08:36] LABS: ALT 45 U/L (9-52); AST 68 U/L (14-36); African American GFR (CKD) >90 (>60 ml/min/1.73 sqM); Albumin 3.1 g/dL (3.5-5.0); Alkaline Phosphatase 176 U/L (38-126); Anion Gap 8 mmol/L; Blood Urea Nitrogen 9 mg/dL (7-17); Calcium 7.8 mg/dL (8.4-10.2); Carbon Dioxide 24 mmol/L (22-30); Chloride 109 mmol/L (98-107); Glucose 85 mg/dL (74-99); Magnesium 1.8 mg/dL (1.6-2.3); Non-African American GFR(CKD) >90 (>60 ml/min/1.73 sqM); Potassium 3.5 mmol/L (3.5-5.1); Sodium 141 mmol/L (137-145); Total Bilirubin 0.4 mg/dL (0.2-1.3); Total Protein 5.9 g/dL (6.3-8.2)
[2019-06-18] MEDS: SUCRALFATE 1 GM TAB PO SCH ×3 (08:54→17:29)
[2019-06-18] MEDS: LORATADINE 10 MG TAB PO SCH (08:55)
[2019-06-18] MEDS: oxyCODONE ER 10 MG TAB.ER.12H PO SCH ×2 (08:59→22:50)
[2019-06-18] MEDS: POTASSIUM CHLORIDE ER 20 MEQ TAB.ER PO SCH (09:02)
[2019-06-18] MEDS: SENNOSIDES-DOCUSATE SODIUM 1 EACH TAB PO SCH ×2 (09:02→20:16)
[2019-06-18] MEDS: POLYETHYLENE GLYCOL 3350 17 GM POWD.PACK PO SCH (09:02)
[2019-06-18] MEDS: METOPROLOL SUCCINATE (ER) 25 MG TAB.ER.24H PO SCH (09:03)
--- NOTE | 2019-06-18 10:09 | P.PN ---
Subjective Patient is seen in follow-up for hypercalcemia. Calcium level today is down to 7.8. No vomiting overnight. Oral intake gradually improving. Urine output is good. Vital signs are stable. General: The patient appeared well nourished and normally developed. HEENT: Head exam is unremarkable. Neck is without jugular venous distension. LUNGS: Lungs are clear to auscultation and percussion. Breath sounds decreased. HEART: Rate and Rhythm are regular. First and second heart sounds normal. No murmurs, rubs or gallops. ABDOMEN: Abdominal exam reveals normal bowel sounds. Non-tender and non- distended. No evidence of peritonitis. EXTREMITITES: No clubbing, cyanosis, or edema. Objective - Vital Signs Vital signs: Vital Signs Temp 97.1 F L 06/18/19 07:40 Pulse 84 06/18/19 08:34 Resp 16 06/18/19 08:34 BP 101/60 06/18/19 08:34 Pulse Ox 95 06/18/19 07:40 Intake & Output 06/17/19 06/18/19 06/18/19 18:59 06:59 18:59 Intake Total 600 815 Output Total 940 Balance 600 -125 Intake: Intake, IV Titration 600 225 Amount Sodium Chloride 0.9% 1, 600 225 000 ml @ 75 mls/hr IV . [id number] [facility] Rx#:[id number] Oral 590 Output: Urine 940 Other: Voiding Method Bedpan Bedpan Urinal Urinal - Labs CBC & Chem 7: 06/16/19 07:40 06/18/19 07:54 Labs: Abnormal Lab Results - Last 24 Hours (Table) 06/18/19 Range/Units 07:54 Chloride 109 H (98-107) mmol/L Creatinine 0.48 L (0.52-1.04) mg/dL Calcium 7.8 L (8.4-10.2) mg/dL AST 68 H (14-36) U/L Alkaline Phosphatase 176 H (38-126) U/L Total Protein 5.9 L (6.3-8.2) g/dL Albumin 3.1 L (3.5-5.0) g/dL Assessment and Plan Plan: Assessment: 1. Hypercalcemia, [id number]. Etiology is malignancy with bone metastasis as well as component of volume contraction. Improved. Status post calcitonin and Zometa. PTH appropriately suppressed. Vitamin D level 53.9. 1,25 D3 18. ANJANA mildly elevated at 67. No monoclonality noted on serum immunofixation. 2. Breast cancer with bone metastasis. 3. Benign hypertension. Controlled. Plan: Maintain normal saline at 75 mL an hour. Encourage oral intake. Repeat electrolytes in the morning.
[2019-06-18] MEDS ORDERED: SODIUM CHLORIDE 0.65% NASAL SPRAY 44 ML BTL NASAL PRN (12:28)
--- NOTE | 2019-06-18 15:21 | P.PN ---
Subjective Progress Note Date: 06/18/19 This is a 58-year-old female patient of Micheal Nielsen NP with past medical history of breast cancer status post lumpectomy in 2010 with recurrence of invasive ductal carcinoma stage III grade IIIa with lumpectomy July 2013 with bone metastasis and multiple pathologic compression fractures. Status post cervical fusion, right femur nail and titanium joaquín all positive for cancer in December 2018, kyphoplasty L3 followed by kyphoplasty T12, L1, L5-S1 with radiofrequency ablation April 2019, history of thyroid cancer status post lobectomy and radiation therapy, chronic atrial fibrillation status post ablation on Xarelto, hypothyroidism, chronic pain syndrome, gastroesophageal reflux disease, generalized anxiety disorder. Patient's last chemotherapy was performed on 05/13/2019. Last radiation to the cervical, right femur and lumbar areas completed on 02/20/2019. PET scan on 06/06/2019 revealed osseous metastatic disease. Patient has [facility] care in place. Patient states that she was at [facility] from May 21 through the June 02 at which time she underwent lumbar spine procedures. She states she also has a left scapular fracture and rib fractures. Old fractures are pathologic related to cancer with metastatic disease. She had previously received all her care at [facility] and as of Saturday switch to Dr. Ordonez. Patient received a call that she needed to come into the hospital as her calcium was elevated. Patient is complaining of numbness to her face that she has had for a couple weeks along with nausea and vomiting. Patient is complaining of significant pain all over her body. Nurse relates that at 3 AM patient became very anxious and agitated. Her normally gives her a Xanax at 3 in the morning for this reason and instructions have been provided to do the same year. Patient says she has also become very weak and she needs to build ambulate to the bathroom in order for her to care for her at home. Patient came into [facility] emergency center for evaluation. Calcium was 14.9, ionized calcium 8.0, AST 88, ALT 57, alkaline phosphatase 235, troponin negative, albumin 4.2, electrolytes within normal limits, BUN 20 creatinine 0.73. INR 1.0. WBC 4.5, hemoglobin 12, platelet count 213. EKG in normal sinus rhythm. Patient was afebrile, blood pressure 101/65, heart rate in the 80s, pulse ox 95% on room air. Patient was started on IM calcitonin and status post 1 dose of zoledronic acid 4 mg IV. Patient was admitted to the [facility] floor and consults requested with nephrology and oncology. Repeat lab work this morning revealed a calcium 11.2 and ionized calcium 6.1, AST 68, ALT 55, alkaline phosphatase 224. Parathyroid hormone intact was 3.4. 06/17: Repeat calcium this morning is 8.6. Dr. Mccormick has recommended decreasing IV fluids to 75 mL per hour, discontinue calcitonin and follow-up on urine immunofixation. Patient states she continues to have significant nausea. She did have an emesis last evening. She thinks the nausea and vomiting has been related to the MS Contin which should be out of her system soon. She denies having any bowel movement. She does complain of abdominal pain in epigastric area. Carafate ordered as well as a lipase level. Physical therapy added. 06/18: Patient states that she is feeling okay today. Her nausea is better but still there a little bit. She denies abdominal pain. She states she has walked in her room twice. She is complaining of constipation and milk of magnesia is available. She states she yogurt last night and for breakfast this morning. Calcium 7.8, total bilirubin 0.4, AST 68, ALT 45, alkaline phosphatase 176. No monoclonal paraprotein recognized on the immunofixation. Plan to increase activity, increase oral intake, resolved constipation and plan for discharge home tomorrow. Review of Systems Constitutional: Reports anorexia, Reports fatigue, Reports lethargy, Reports malaise, Reports poor appetite, Reports weakness, Denies chills, Denies fever Eyes: denies blurred vision, denies pain Ears, nose, mouth and throat: Denies headache, Denies nasal congestion, Denies nasal discharge, Denies sore throat, Denies vertigo Cardiovascular: Reports chest pain, Denies edema, Denies lightheadedness, Denies palpitations, Denies shortness of breath, Denies syncope Respiratory: Denies cough, Denies cough with sputum, Denies dyspnea, Denies excessive sputum, Denies hemoptysis, Denies home oxygen, Denies wheezing Gastrointestinal: Reports loss of appetite, Reports nausea, reports abdominal pain, Denies diarrhea, denies vomiting, reports constipation Genitourinary: Denies dysuria, Denies hematuria, Denies urgency, Denies urinary frequency Musculoskeletal: Reports gait dysfunction, Reports low back pain, Reports muscle weakness, Denies myalgias Integumentary: Denies pruritus, Denies rash Neurological: Reports weakness, Denies change in mentation, Denies change in speech, Denies seizures, Denies syncope Psychiatric: Reports anxiety, Denies depression Endocrine: Denies fatigue, Denies weight change Objective - Vital Signs Vital signs: Vital Signs Temp 97.1 F L 06/18/19 07:40 Pulse 84 06/18/19 08:34 Resp 16 06/18/19 08:34 BP 101/60 06/18/19 08:34 Pulse Ox 95 06/18/19 07:40 Intake & Output 06/17/19 06/18/19 06/18/19 18:59 06:59 18:59 Intake Total 600 815 Output Total 940 Balance 600 -125 Intake: Intake, IV Titration 600 225 Amount Sodium Chloride 0.9% 1, 600 225 000 ml @ 75 mls/hr IV . [id number] [facility] Rx#:[id number] Oral 590 Output: Urine 940 Other: Voiding Method Bedpan Bedpan Urinal Urinal - Exam Gen: This is a 58-year-old female area patient is resting in bed and appears to be comfortable at this time. HEENT: Head is atraumatic, normocephalic. Pupils equal, round. Sclerae is anicteric. Oral mucous membranes are dry. NECK: Supple. No JVD. No lymphadenopathy. No thyromegaly. LUNGS: Clear to auscultation. No wheezes or rhonchi. No intercostal retractions. HEART: Regular rate and rhythm. No murmur. ABDOMEN: Soft. Bowel sounds are present. No masses. No abdominal tenderness. EXTREMITIES: No pedal edema. No calf tenderness. NEUROLOGICAL: Patient is awake, alert and oriented x3. Cranial nerves 2 through 12 are grossly intact. - Labs CBC & Chem 7: 06/16/19 07:40 06/18/19 07:54 Labs: Abnormal Lab Results - Last 24 Hours (Table) 06/18/19 Range/Units 07:54 Chloride 109 H (98-107) mmol/L Creatinine 0.48 L (0.52-1.04) mg/dL Calcium 7.8 L (8.4-10.2) mg/dL AST 68 H (14-36) U/L Alkaline Phosphatase 176 H (38-126) U/L Total Protein 5.9 L (6.3-8.2) g/dL Albumin 3.1 L (3.5-5.0) g/dL Assessment and Plan Plan: 1. Hypercalcemia secondary to malignancy with metastatic disease to the bone. Nephrology consult appreciated. IV fluids decreased to 75 mL per hour, discontinue calcitonin, discontinue vitamin D. Electrophoresis studies negative. 2. Breast cancer with bone metastasis status post multiple surgical interventions. Oncology consult. 3. Paroxysmal atrial fibrillation. Continue Toprol-XL 25 mg in the morning and 50 mg at bedtime, Xarelto 20 mg daily. 4. Hypothyroidism. Continue levothyroxine 175 g daily. 5. Gastroesophageal reflux disease and GI prophylaxis. Continue Protonix. 6. Chronic pain syndrome. Continue Voltaren gel, Robaxin 750 mg every 6 hours as needed, OxyContin 30 mg extended release every 12 hours, oxycodone 10 mg every 4 hours as needed. 7. Seasonal ALLERGIES. Continue Claritin. 8. History of thyroid cancer. 9. Generalized anxiety disorder. Continue Xanax or 0.5 mg 4 times daily as needed. 10. Elevated liver function tests secondary to liver steatosis. 11. Nausea and vomiting most likely secondary to reaction to morphine. Continu e Zofran, Pepcid, Carafate added. Check lipase level Discharge plan: Return home with [facility] on Saturday. Physical therapy consult added. Impression and plan of care have been directed as dictated by the signing physician. Elayne Ambrosio nurse practitioner acting as scribe for signing aurelio howard.
--- NOTE | 2019-06-18 16:39 | P.PN ---
Subjective Progress Note Date: 06/18/19 Principal diagnosis: Hypercalcemia, metastatic breast cancer In follow-up today patient still has not had a bowel movement, she is still complaining of low any pain, not much is providing her with relief for any duration of time. Calcium is significantly improved, her vital signs are stable. No fevers, vomiting Objective - Vital Signs Vital signs: Vital Signs Temp 97.9 F 06/18/19 12:49 Pulse 86 06/18/19 12:49 Resp 16 06/18/19 12:49 BP 106/60 06/18/19 12:49 Pulse Ox 94 L 06/18/19 12:49 Intake & Output 06/17/19 06/18/19 06/18/19 18:59 06:59 18:59 Intake Total 600 815 650 Output Total 940 Balance 600 -125 650 Intake: Intake, IV Titration 600 225 650 Amount Sodium Chloride 0.9% 1, 600 225 650 000 ml @ 75 mls/hr IV . [id number] [facility] Rx#:[id number] Oral 590 Output: Urine 940 Other: Voiding Method Bedpan Bedpan Toilet Urinal Urinal # Voids 1 - Constitutional General appearance: Present: cooperative, disheveled, mild distress, obese - EENT Eyes: Present: anicteric sclerae, EOMI ENT: Present: hearing grossly normal - Respiratory Respiratory: bilateral: CTA - Cardiovascular Heart sounds: normal: S1, S2 Abnormal Heart Sounds: Absent: systolic murmur, diastolic murmur, rub, S3 Gallop, S4 Gallop, click, other - Peripheral edema leg Peripheral Edema: bilateral: None - Gastrointestinal General gastrointestinal: Present: normal bowel sounds, soft, tenderness - Integumentary Integumentary: Present: pale - Neurologic Neurologic: Present: CNII-XII intact - Musculoskeletal Musculoskeletal: Present: generalized weakness - Psychiatric Psychiatric: Present: A&O x's 3, appropriate affect, intact judgment & insight - Labs CBC & Chem 7: 06/16/19 07:40 06/18/19 07:54 Labs: Abnormal Lab Results - Last 24 Hours (Table) 06/18/19 Range/Units 07:54 Chloride 109 H (98-107) mmol/L Creatinine 0.48 L (0.52-1.04) mg/dL Calcium 7.8 L (8.4-10.2) mg/dL AST 68 H (14-36) U/L Alkaline Phosphatase 176 H (38-126) U/L Total Protein 5.9 L (6.3-8.2) g/dL Albumin 3.1 L (3.5-5.0) g/dL Assessment and Plan (1) Hypercalcemia Current Visit: Yes Status: Resolved Priority: High Code(s): E83.52 - HYPERCALCEMIA SNOMED Code(s): 96819521 (2) Metastatic breast cancer Narrative/Plan: Plan is for dose reduced ibrance and faslodex. These orders are in process pending approval and receipt of meds. This will begin outpatient. Pt knows the plan. Current Visit: Yes Status: Acute Priority: High Code(s): C50.919 - MALIGNANT NEOPLASM OF UNSP SITE OF UNSPECIFIED FEMALE BREAST SNOMED Code(s): 484956640 Plan: Patient is slowly improving. Adjusted meds to her preference. Additional PRN meds for constipation added as she is c/po constipation. Pt is cleared from Hem/Onc for DC, she is pending Attending and Consulting Physician clearance
[2019-06-18] MEDS ORDERED: NITROGLYCERIN SL TABS 0.4 MG TAB SUBLINGUAL PRN (17:21)
[2019-06-18] MEDS: RIVAROXABAN 20 MG TAB PO SCH (17:32)
[2019-06-18] MEDS: HYDROmorphone 1 MG/ML 1 ML SYRINGE IVP PRN (20:19)
[2019-06-18] MEDS: METOPROLOL SUCCINATE (ER) 50 MG TAB.ER.24H PO SCH (20:21)
--- NOTE | 2019-06-18 21:13 | CT ---
EXAMINATION TYPE: CT angio chest DATE OF EXAM: 06/18/2019 8:49 PM COMPARISON: 07/01/2018 HISTORY: Chest pain and elevated d-dimer. CT DLP: 426.8 mGycm Automated exposure control for dose reduction was used. CONTRAST: CTA scan of the thorax is performed with IV Contrast, patient injected with 66ml mL of Isovue 370, pu lmonary embolism protocol. There are 3-D post processed images.. FINDINGS: There are mild bilateral pleural effusions. There is some atelectasis at the right lung base. There a re clips from cholecystectomy. Heart size is normal. There is no pericardial effusion. There is no me diastinal adenopathy. Thoracic aorta is intact without evidence of aneurysm or dissection. I see no f illing defects in the pulmonary arteries. There are numerous areas of lytic and blastic change in the bony thorax consistent with advanced meta static disease. IMPRESSION: NO EVIDENCE OF PULMONARY EMBOLISM. EXTENSIVE METASTATIC DISEASE IN THE BONY THORAX IS A SIGNIFICANT C HANGE COMPARED TO OLD CT SCAN. THERE IS NEW BILATERAL PLEURAL EFFUSIONS AND ATELECTASIS AT THE LUNG B ASES COMPARED TO OLD EXAM.
[2019-06-18] MEDS: METHOCARBAMOL 750 MG TAB PO PRN (22:53)
[2019-06-19] MEDS: ACETAMINOPHEN TAB 500 MG TAB PO SCH ×3 (05:48→21:00)
[2019-06-19] MEDS: LEVOTHYROXINE 100 MCG TAB PO SCH (05:50)
[2019-06-19] MEDS: LEVOTHYROXINE 75 MCG TAB PO SCH (05:50)
[2019-06-19] MEDS: SODIUM CHLORIDE 0.9% 1,000 ML IV SCH ×2 (08:27→21:00)
[2019-06-19] MEDS: LORATADINE 10 MG TAB PO SCH (08:54)
[2019-06-19] MEDS: METOPROLOL SUCCINATE (ER) 25 MG TAB.ER.24H PO SCH (08:54)
[2019-06-19] MEDS: SUCRALFATE 1 GM TAB PO SCH ×3 (08:54→16:37)
[2019-06-19] MEDS: POTASSIUM CHLORIDE ER 20 MEQ TAB.ER PO SCH ×3 (08:55→16:37)
[2019-06-19] MEDS: SENNOSIDES-DOCUSATE SODIUM 1 EACH TAB PO SCH ×2 (08:55→21:00)
[2019-06-19] MEDS: POLYETHYLENE GLYCOL 3350 17 GM POWD.PACK PO SCH (08:55)
[2019-06-19] MEDS: OMEPRAZOLE 20MG PO SCH (08:57)
[2019-06-19] MEDS: oxyCODONE ER 10 MG TAB.ER.12H PO SCH ×2 (09:19→21:00)
[2019-06-19 09:21] LABS: African American GFR (CKD) >90 (>60 ml/min/1.73 sqM); Anion Gap 8 mmol/L; Blood Urea Nitrogen 8 mg/dL (7-17); Calcium 7.2 mg/dL (8.4-10.2); Carbon Dioxide 24 mmol/L (22-30); Chloride 109 mmol/L (98-107); Glucose 91 mg/dL (74-99); Magnesium 1.9 mg/dL (1.6-2.3); Non-African American GFR(CKD) >90 (>60 ml/min/1.73 sqM); Potassium 3.1 mmol/L (3.5-5.1); Sodium 141 mmol/L (137-145)
[2019-06-19] MEDS ORDERED: POTASSIUM CHLORIDE ER 20 MEQ TAB.ER PO STA (10:15)
--- NOTE | 2019-06-19 10:16 | P.PN ---
Subjective Patient is seen in follow-up for hypercalcemia. Calcium level today is down to 7.2. No vomiting overnight. Oral intake gradually improving. Urine output is good. Did develop chest pain yesterday. Currently undergoing a cardiogram. Vital signs are stable. General: The patient appeared well nourished and normally developed. HEENT: Head exam is unremarkable. Neck is without jugular venous distension. LUNGS: Lungs are clear to auscultation and percussion. Breath sounds decreased. HEART: Rate and Rhythm are regular. First and second heart sounds normal. No murmurs, rubs or gallops. ABDOMEN: Abdominal exam reveals normal bowel sounds. Non-tender and non- distended. No evidence of peritonitis. EXTREMITITES: No clubbing, cyanosis, or edema. Objective - Vital Signs Vital signs: Vital Signs Temp 97.1 F L 06/19/19 07:49 Pulse 80 06/19/19 08:30 Resp 16 06/19/19 08:30 BP 108/69 06/19/19 07:49 Pulse Ox 95 06/19/19 07:49 Intake & Output 06/18/19 06/19/19 06/19/19 18:59 06:59 18:59 Intake Total 650 640 Output Total 200 Balance 650 440 Intake: Intake, IV Titration 650 350 Amount Sodium Chloride 0.9% 1, 650 350 000 ml @ 75 mls/hr IV . [id number] [facility] Rx#:[id number] Oral 290 Output: Urine 200 Other: Voiding Method Toilet Toilet # Voids 1 2 - Labs CBC & Chem 7: 06/16/19 07:40 06/19/19 08:31 Labs: Abnormal Lab Results - Last 24 Hours (Table) 06/18/19 06/19/19 Range/Units 18:13 08:31 D-Dimer 2.43 H (<0.60) mg/L FEU Potassium 3.1 L (3.5-5.1) mmol/L Chloride 109 H (98-107) mmol/L Creatinine 0.50 L (0.52-1.04) mg/dL Calcium 7.2 L (8.4-10.2) mg/dL Assessment and Plan Plan: Assessment: 1. Hypercalcemia, [id number]. Etiology is malignancy with bone metastasis as well as component of volume contraction. Improved. Status post calcitonin and Zometa. PTH appropriately suppressed. Vitamin D level 53.9. 1,25 D3 18. ANJANA mildly elevated at 67. No monoclonality noted on serum immunofixation. 2. Breast cancer with bone metastasis. 3. Benign hypertension. Controlled. 4. Hypokalemia from poor oral intake. Plan: Maintain normal saline at 75 mL an hour. Encourage oral intake. Follow-up echocardiogram. Replace potassium. 60 meq today. Repeat electrolytes in the morning.
--- NOTE | 2019-06-19 12:47 | ECHOF ---
Referral Reason:cp, pleuritic, recent chemo MEASUREMENTS -------- HEIGHT: 165.1 cm WEIGHT: 78.0 kg BP: 108/69 RVIDd: 2.6 cm (< 3.3) IVSd: 1.3 cm (0.6 - 1.1) LVIDd: 3.5 cm (3.9 - 5.3) LVPWd: 1.9 cm (0.6 - 1.1) IVSs: 1.9 cm LVIDs: 2.7 cm LVPWs: 1.9 cm LAESV Index (A-L): 40.28 ml/m Ao Diam: 3.2 cm (2.0 - 3.7) AV Cusp: 1.9 cm (1.5 - 2.6) LA Diam: 3.6 cm (2.7 - 3.8) MV EXCURSION: 12.148 mm (> 18.000) MV EF SLOPE: 80 mm/s (70 - 150) EPSS: 0.6 cm MV E Ganga: 1.00 m/s MV DecT: 168 ms MV A Ganga: 0.83 m/s MV E/A Ratio: 1.21 RAP: 5.00 mmHg RVSP: 34.73 mmHg FINDINGS -------- Sinus rhythm. This was a technically adequate study. The left ventricular size is normal. There is mild concentric left ventricular hypertrophy. Overa ll left ventricular systolic function is low-normal with, an EF between 50 - 55 %. The diastolic fi lling pattern is normal for the age of the patient. The right ventricle is normal in size. Left atrium is moderately dilated by volume. The right atrial size is normal. Interatrial and interventricular septum intact. There is no evidence of aortic regurgitation. There is no evidence of aortic stenosis. Mild mitral regurgitation is present. Mild tricuspid regurgitation present. There is mild pulmonary hypertension. The right ventricular systolic pressure, as measured by Doppler, is 34.73mmHg. There is no pulmonic regurgitation present. The aortic root size is normal. The inferior vena cava was not well visualized. There is no pericardial effusion. CONCLUSIONS -------- 1. Sinus rhythm. 2. This was a technically adequate study. 3. The left ventricular size is normal. 4. Overall left ventricular systolic function is low-normal with, an EF between 50 - 55 %. 5. The diastolic filling pattern is normal for the age of the patient. 6. The right ventricle is normal in size. 7. Left atrium is moderately dilated by volume. 8. The right atrial size is normal. 9. Interatrial and interventricular septum intact. 10. There is no evidence of aortic regurgitation. 11. There is no evidence of aortic stenosis. 12. Mild tricuspid regurgitation present. 13. There is mild pulmonary hypertension. 14. The right ventricular systolic pressure, as measured by Doppler, is 34.73mmHg. 15. There is no pulmonic regurgitation present. 16. The aortic root size is normal. 17. The inferior vena cava was not well visualized. 18. There is no pericardial effusion. PAINTER SET: Sola Uribe RDCS
--- NOTE | 2019-06-19 12:59 | P.CRDCN ---
History of Present Illness History of present illness: HISTORY OF PRESENTING ILLNESS This is a pleasant 58-year-old female past medical history significant for paroxysmal atrial fibrillation status post ablation on long-term anticoagul ation, breast cancer status post lumpectomy 2012 with reoccurrence and bone metastasis and chronic back pain. She presented on advice of her PCP secondary to abnormal lab value. She follows in the office with a fine chemicals operator out of [facility], Dr. Freeman. We have been asked to see him in consultation for chest pain. She states last night while laying in bed she had an acute onset of sharp pain in the upper mid-sternal region. The pain was very sharp in nature and worse with deep inspiration, coughing or movement of her body. She continues to feel this pain intermittently with deep inspiration. It is mildly reproducible on palpation. DIAGNOSTICS EKG reveals sinus mechanism 3. CTA chest negative for pulmonary embolism, extensive metastatic disease and the bony thorax and new bilateral pleural effusions and atelectasis bilateral lung bases. Laboratory reviewed, WBC 4.2, hemoglobin 10.9, platelets 184, d-dimer 2.43, sodium 141, potassium 3.1, creatinine 0.5, cardiac enzymes negative 2. Current cardiac medications include Toprol 25 mg in the morning and 50 mg at bedtime. REVIEW OF SYSTEMS At the time of my exam: CONSTITUTIONAL: Denies fever or chills. CARDIOVASCULAR: Complains of pleuritic chest pain. Denies exertional chest pain, shortness of breath, orthopnea, PND or palpitations. RESPIRATORY: Denies cough. GASTROINTESTINAL: Denies abdominal pain, diarrhea, constipation, nausea or vomiting. MUSCULOSKELETAL: Denies myalgias. NEUROLOGIC: Denies numbness, tingling or weakness. ENDOCRINE: Denies fatigue, weight change, polydipsia or polyurina. GENITOURINARY: Denies burning, hematuria or urgency with micturation. HEMATOLOGIC: Denies history of anemia or bleeding. PHYSICAL EXAMINATION Blood pressure 108/69 heart rate 80 afebrile and maintaining oxygen saturaiton on room air. CONSTITUTIONAL: No apparent distress. HEENT: Head is normocephalic. Pupils are equal, round. Sclerae anicteric. Mucous membranes of the mouth are moist. No JVD. No carotid bruit. CHEST EXAMINATION: Lungs are clear to auscultation. Mild chest wall tenderness is noted on palpation and with deep breathing. HEART EXAMINATION: Regular rate and rhythm. S1, S2 heard. No murmurs, gallops or rub. ABDOMEN: Soft, nontender. Positive bowel sounds. EXTREMITIES: 2+ peripheral pulses, no lower extremity edema and no calf tenderness. NEUROLOGIC EXAMINATION: Patient is awake, alert and oriented x3. ASSESSMENT Chest pain, atypical with pleuritic features. An acute coronary event has been ruled out. Negative for pulmonary embolism. Hypercalcemia, improved Breast cancer with bone metastasis Paroxysmal atrial fibrillation status post ablation on long-term anticoagulation PLAN An acute coronary event has been ruled out. Pain is atypical for angina with pleuritic features, likely related to muskuloskeletal strain or bone metastasis. Negative for PE. Echocardiogram obtained and revealed normal LV systolic function with no wall motion abnormalities. We will follow as needed, please call with further questions or concerns. Thank you kindly for this consultation. Nurse Practitioner note has been reviewed, I agree with a documented findings and plan of care. Patient was seen and examined. Past Medical History Past Medical History: Atrial Fibrillation, Cancer, Fibromyalgia, GERD/Reflux Additional Past Medical History / Comment(s): breast cancer status post lumpectomy in 2010 with recurrence of invasive ductal carcinoma stage III grade IIIa with lumpectomy July 2013 with bone metastasis and multiple pathologic compression fractures. Status post cervical fusion, right femur nail and titanium joaquín all positive for cancer in December 2018, kyphoplasty L3 followed by kyphoplasty T12, L1, L5-S1 with radiofrequency ablation April 2019, history of thyroid cancer status post lobectomy and radiation therapy, chronic atrial fibrillation status post ablation on Xarelto, hypothyroidism, chronic pain synd patricia, gastroesophageal reflux disease, generalized anxiety disorder. History of Any Multi-Drug Resistant Organisms: None Reported Past Surgical History: Ablation, Back Surgery, Cholecystectomy, Hysterectomy Additional Past Surgical History / Comment(s): lumpectomy left breast x3, lobectomy thyroid, c5 c6 c7 fusion, bone marrow biopsy, bar/nail in right thigh and plate in right arm, ablation on heart 2012, gallstone removed from bile duct, left breast re-incision for clear margins in 2013,port plcement, 2015 had port removed, kyphoplasty on back x3 and radiofrequncy ablation to back, Past Anesthesia/Blood Transfusion Reactions: Previous Problems w/ Anesthesia Additional Past Anesthesia/Blood Transfusion Reaction / Comment(s): Hard time waking up and hypothermia Past Psychological History: No Psychological Hx Reported Additional Psychological History / Comment(s): Patient lives in ranch style home with . Smoking Status: Never smoker Past Alcohol Use History: None Reported Additional Past Alcohol Use History / Comment(s): Patient is a lifelong nonsmoker, no marijuana or illicit drug use. Past Drug Use History: None Reported - Past Family History Son(s) History Unknown: Yes Additional Family Medical History / Comment(s): Small nodule on thyroid, no other history Father Additional Family Medical History / Comment(s): Patient does not know any history on her father. Mother Additional Family Medical History / Comment(s): Mother at age 83 from a perforated bowel with fistula to the bladder, COPD history. Brother(s) Additional Family Medical History / Comment(s): Patient has 1 brother that had part of his colon removed. Patient does not have any sisters. Medications and Allergies Home Medications Medication Instructions Recorded Confirmed Type Calcium Carbonate [Tums] 500 - 1,000 mg PO QID PRN 09/15/17 06/15/19 History Ergocalciferol [Vitamin D2] 50,000 unit PO [place] 09/15/17 06/15/19 History Levothyroxine Sodium [Synthroid] 175 mcg PO DAILY@0500 09/15/17 06/15/19 History Loratadine 10 mg PO DAILY 09/15/17 06/15/19 History Omeprazole 20 mg PO DAILY 09/15/17 06/15/19 History ALPRAZolam [Xanax] 0.5 mg PO QID PRN 07/01/18 06/15/19 History Acetaminophen Tab [Tylenol Tab] 1,000 mg PO Q8H 06/15/19 06/15/19 History Colace 50 mg PO BID 06/15/19 06/15/19 History Diclofenac Sodium [Voltaren Gel] 2 gram TOPICAL QID PRN 06/15/19 06/15/19 History HYDROmorphone HCL 2 mg PO Q6H PRN 06/15/19 06/15/19 History Methocarbamol [Robaxin] 750 mg PO Q6H PRN 06/15/19 06/15/19 History Metoprolol Succinate (ER) [Toprol 25 mg PO DAILY 06/15/19 06/15/19 History Xl] Metoprolol Succinate (ER) [Toprol 50 mg PO HS 06/15/19 06/15/19 History Xl] Morphine Sulfate ER [Ms Contin] 30 mg PO Q12HR 06/15/19 06/15/19 History Polyethylene Glycol 3350 [Miralax] 17 gm PO DAILY 06/15/19 06/15/19 History Potassium Chloride [Klor-Con 20] 20 meq PO DAILY 06/15/19 06/15/19 History Rivaroxaban [Xarelto] 20 mg PO W/SUPPER 06/15/19 06/15/19 History Sennosides [Senna] 8.6 mg PO BID 06/15/19 06/15/19 History oxyCODONE HCL [Roxicodone] 10 mg PO Q4H PRN 06/15/19 06/15/19 History Allergies Allergy/AdvReac Type Severity Reaction Status Date / Time gabapentin Allergy Rash/Hives Verified 06/15/19 14:17 vancomycin Allergy Rash/Hives Verified 06/15/19 14:17 Physical Exam Vitals: Vital Signs Temp Pulse Resp BP Pulse Ox 06/19/19 08:30 80 16 06/19/19 07:49 97.1 F L 80 16 108/69 95 06/19/19 05:00 97.9 F 84 16 102/70 95 06/18/19 20:32 97.9 F 85 20 109/75 97 06/18/19 12:49 97.9 F 86 16 106/60 94 L Intake and Output 06/18/19 06/19/19 06/19/19 22:59 06:59 14:59 Intake Total 290 350 Output Total 200 Balance 90 350 Intake: Intake, IV Titration 350 Amount Sodium Chloride 0.9% 1, 350 000 ml @ 75 mls/hr IV . [id number] [facility] Rx#:[id number] Oral 290 Output: Urine 200 Other: Voiding Method Toilet # Voids 1 2 Results 06/16/19 07:40 06/19/19 08:31 Cardiac Enzymes 06/18/19 06/19/19 Range/Units 18:13 08:31 Troponin I <0.012 <0.012 (0.000-0.034) ng/mL Comprehensive Metabolic Panel 06/19/19 Range/Units 08:31 Sodium 141 (137-145) mmol/L Potassium 3.1 L (3.5-5.1) mmol/L Chloride 109 H (98-107) mmol/L Carbon Dioxide 24 (22-30) mmol/L BUN 8 (7-17) mg/dL Creatinine 0.50 L (0.52-1.04) mg/dL Glucose 91 (74-99) mg/dL Calcium 7.2 L (8.4-10.2) mg/dL Current Medications Generic Name Dose Route Start Last Admin Trade Name Freq PRN Reason Stop Dose Admin Acetaminophen 1,000 mg 06/15/19 21:00 06/19/19 05:48 Tylenol Tab PO 1,000 mg Q8H [facility] Administration Alprazolam 0.5 mg 06/15/19 19:37 Xanax PO QID PRN Anxiety Diclofenac Sodium 2 gm 06/15/19 19:37 Voltaren Gel TOPICAL QID PRN Joint Pain Hydromorphone HCl 1 mg 06/15/19 15:49 06/18/19 20:19 Dilaudid IVP 1 mg Q4HR PRN Administration Pain Sodium Chloride 1,000 mls @ 75 mls/hr 06/16/19 08:45 06/19/19 08:27 Saline 0.9% IV 75 mls/hr .[id number] [facility] Administration Levothyroxine Sodium 100 mcg 06/16/19 06:30 06/19/19 05:50 Synthroid PO 100 mcg DAILY@0630 [facility] Administration Levothyroxine Sodium 75 mcg 06/16/19 06:30 06/19/19 05:50 Synthroid PO 75 mcg DAILY@0630 [facility] Administration Loratadine 10 mg 06/16/19 09:00 06/19/19 08:54 Claritin PO 10 mg DAILY [facility] Administration Magnesium Hydroxide 2,400 mg 06/17/19 18:19 06/18/19 12:34 Milk Of Magnesia PO 2,400 mg BID PRN Administration Constipation Methocarbamol 750 mg 06/15/19 19:37 06/18/19 22:53 Robaxin PO 750 mg Q6H PRN Administration Spasms Metoprolol Succinate 25 mg 06/16/19 09:00 06/19/19 08:54 Toprol Xl PO 25 mg DAILY [facility] Administration Metoprolol Succinate 50 mg 06/15/19 21:00 06/18/19 20:21 Toprol Xl PO 50 mg HS [facility] Administration Neomycin/Polymyxin/Bacitracin 1 applic 06/19/19 10:17 Triple Antibiotic Ointment TOPICAL BID PRN Skin Irritation Nitroglycerin 0.4 mg 06/18/19 17:21 Nitrostat SUBLINGUAL Q5M PRN Chest Pain Omeprazole 20mg 1 each 06/17/19 07:30 06/19/19 08:57 PO 1 each [id number] [facility] Administration Ondansetron HCl 4 mg 06/15/19 15:49 06/16/19 22:59 Zofran IVP 4 mg Q6HR PRN Administration Nausea And Vomiting Oxycodone HCl 10 mg 06/15/19 19:37 06/19/19 08:33 Oxyir PO 10 mg Q4H PRN Administration SEVERE Pain Oxycodone HCl 30 mg 06/16/19 21:00 06/19/19 09:19 Oxycontin 10mg E.R. PO 30 mg Q12HR [facility] Administration Polyethylene Glycol 17 gm 06/16/19 09:00 06/19/19 08:55 Miralax PO 17 gm DAILY [facility] Administration Potassium Chloride 20 meq 06/16/19 09:00 06/19/19 08:55 K-Dur 20 PO 20 meq DAILY [facility] Administration Potassium Chloride 40 meq 06/19/19 12:00 K-Dur 20 PO 06/19/19 14:01 Q2HR [facility] Rivaroxaban 20 mg 06/15/19 19:45 06/18/19 17:32 Xarelto PO 20 mg W/SUPPER [facility] Administration Senna/Docusate Sodium 2 each 06/17/19 21:00 06/19/19 08:55 Senokot-S PO 2 each BID [facility] Administration Sodium Chloride 2 spray 06/18/19 12:28 Deep Sea NASAL QID PRN Dry Nasal Passages Sucralfate 1 gm 06/17/19 12:30 06/19/19 08:54 Carafate PO 1 gm AC-TID [facility] Administration Intake and Output 06/18/19 06/19/19 06/19/19 22:59 06:59 14:59 Intake Total 290 350 Output Total 200 Balance 90 350 Intake: Intake, IV Titration 350 Amount Sodium Chloride 0.9% 1, 350 000 ml @ 75 mls/hr IV . [id number] [facility] Rx#:[id number] Oral 290 Output: Urine 200 Other: Voiding Method Toilet # Voids 1 2 06/16/19 07:40 06/19/19 08:31
[2019-06-19] MEDS: NEOMYCIN-BACITRACIN-POLY OINT 14 GM TUBE TOPICAL PRN (13:49)
[2019-06-19] MEDS: KETOROLAC 30 MG/ML 1 ML VIAL IVP SCH ×2 (14:46→19:37)
--- NOTE | 2019-06-19 15:14 | P.PN ---
Subjective Progress Note Date: 06/19/19 This is a 58-year-old female patient of Micheal Nielsen NP with past medical history of breast cancer status post lumpectomy in 2010 with recurrence of invasive ductal carcinoma stage III grade IIIa with lumpectomy July 2013 with bone metastasis and multiple pathologic compression fractures. Status post cervical fusion, right femur nail and titanium joaquín all positive for cancer in December 2018, kyphoplasty L3 followed by kyphoplasty T12, L1, L5-S1 with radiofrequency ablation April 2019, history of thyroid cancer status post lobectomy and radiation therapy, chronic atrial fibrillation status post ablation on Xarelto, hypothyroidism, chronic pain syndrome, gastroesophageal reflux disease, generalized anxiety disorder. Patient's last chemotherapy was performed on 05/13/2019. Last radiation to the cervical, right femur and lumbar areas completed on 02/20/2019. PET scan on 06/06/2019 revealed osseous metastatic disease. Patient has [facility] care in place. Patient states that she was at [facility] from May 21 through the June 02 at which time she underwent lumbar spine procedures. She states she also has a left scapular fracture and rib fractures. Old fractures are pathologic related to cancer with metastatic disease. She had previously received all her care at [facility] and as of Saturday switch to Dr. Ordonez. Patient received a call that she needed to come into the hospital as her calcium was elevated. Patient is complaining of numbness to her face that she has had for a couple weeks along with nausea and vomiting. Patient is complaining of significant pain all over her body. Nurse relates that at 3 AM patient became very anxious and agitated. Her normally gives her a Xanax at 3 in the morning for this reason and instructions have been provided to do the same year. Patient says she has also become very weak and she needs to build ambulate to the bathroom in order for her to care for her at home. Patient came into [facility] emergency center for evaluation. Calcium was 14.9, ionized calcium 8.0, AST 88, ALT 57, alkaline phosphatase 235, troponin negative, albumin 4.2, electrolytes within normal limits, BUN 20 creatinine 0.73. INR 1.0. WBC 4.5, hemoglobin 12, platelet count 213. EKG in normal sinus rhythm. Patient was afebrile, blood pressure 101/65, heart rate in the 80s, pulse ox 95% on room air. Patient was started on IM calcitonin and status post 1 dose of zoledronic acid 4 mg IV. Patient was admitted to the [facility] floor and consults requested with nephrology and oncology. Repeat lab work this morning revealed a calcium 11.2 and ionized calcium 6.1, AST 68, ALT 55, alkaline phosphatase 224. Parathyroid hormone intact was 3.4. 06/17: Repeat calcium this morning is 8.6. Dr. Mccormick has recommended decreasing IV fluids to 75 mL per hour, discontinue calcitonin and follow-up on urine immunofixation. Patient states she continues to have significant nausea. She did have an emesis last evening. She thinks the nausea and vomiting has been related to the MS Contin which should be out of her system soon. She denies having any bowel movement. She does complain of abdominal pain in epigastric area. Carafate ordered as well as a lipase level. Physical therapy added. 06/18: Patient states that she is feeling okay today. Her nausea is better but still there a little bit. She denies abdominal pain. She states she has walked in her room twice. She is complaining of constipation and milk of magnesia is available. She states she yogurt last night and for breakfast this morning. Calcium 7.8, total bilirubin 0.4, AST 68, ALT 45, alkaline phosphatase 176. No monoclonal paraprotein recognized on the immunofixation. Plan to increase activity, increase oral intake, resolved constipation and plan for discharge home tomorrow. 06/19: Patient developed chest pain yesterday and d-dimer was elevated, patient was finally underwent a CT angiogram of the chest that was negative for pulmonary embolism but did show extensive metastatic disease in the bony thorax. Cardiology consult was added. Echocardiogram was ordered. Troponins have been negative on 2 draws. There is no bilateral pleural effusions and atelectasis at the lung bases. Calcium 7.2. Potassium 3.1 and will be replaced, BUN 8 and creatinine 0.50. Magnesium 1.9. Patient is gradually increasing her oral intake. No vomiting. Patient has had a large bowel movement and refused to have abdominal x-rays. Constipation has resolved. Patient has been evaluated by physical therapy with recommendations for home care and 24 hour supervision. At the time of evaluation, patient continues to have chest pain in the midsternal area with increased pain with movement. She states stretching does help it. She denies any nausea or vomiting. Toradol 2 doses will be ordered and Voltaren gel to be applied to her chest. Patient will be monitored overnight and plan for discharge home tomorrow. Review of Systems Constitutional: Reports anorexia, Reports fatigue, Reports lethargy, Reports malaise, Reports poor appetite, Reports weakness, Denies chills, Denies fever Eyes: denies blurred vision, denies pain Ears, nose, mouth and throat: Denies headache, Denies nasal congestion, Denies nasal discharge, Denies sore throat, Denies vertigo Cardiovascular: Reports chest pain, Denies edema, Denies lightheadedness, Denies palpitations, Denies shortness of breath, Denies syncope Respiratory: Denies cough, Denies cough with sputum, Denies dyspnea, Denies excessive sputum, Denies hemoptysis, Denies home oxygen, Denies wheezing Gastrointestinal: Reports loss of appetite, Reports nausea, reports abdominal pain, Denies diarrhea, denies vomiting, reports constipation Genitourinary: Denies dysuria, Denies hematuria, Denies urgency, Denies urinary frequency Musculoskeletal: Reports gait dysfunction, Reports low back pain, Reports muscle weakness, Denies myalgias Integumentary: Denies pruritus, Denies rash Neurological: Reports weakness, Denies change in mentation, Denies change in speech, Denies seizures, Denies syncope Psychiatric: Reports anxiety, Denies depression Endocrine: Denies fatigue, Denies weight change Objective - Vital Signs Vital signs: Vital Signs Temp 98.1 F 06/19/19 11:20 Pulse 84 06/19/19 11:20 Resp 16 06/19/19 11:20 BP 108/64 06/19/19 11:20 Pulse Ox 97 06/19/19 11:20 Intake & Output 06/18/19 06/19/19 06/19/19 18:59 06:59 18:59 Intake Total 650 640 Output Total 200 Balance 650 440 Intake: Intake, IV Titration 650 350 Amount Sodium Chloride 0.9% 1, 650 350 000 ml @ 75 mls/hr IV . [id number] CARLOS Rx#:[id number] Oral 290 Output: Urine 200 Other: Voiding Method Toilet Toilet # Voids 1 2 - Exam Gen: This is a 58-year-old female area patient is resting in bed and appears to be comfortable at this time. HEENT: Head is atraumatic, normocephalic. Pupils equal, round. Sclerae is anicteric. Oral mucous membranes are dry. NECK: Supple. No JVD. No lymphadenopathy. No thyromegaly. LUNGS: Clear to auscultation. No wheezes or rhonchi. No intercostal retractions. HEART: Regular rate and rhythm. No murmur. Chest wall tenderness ABDOMEN: Soft. Bowel sounds are present. No masses. No abdominal tenderness. EXTREMITIES: No pedal edema. No calf tenderness. NEUROLOGICAL: Patient is awake, alert and oriented x3. Cranial nerves 2 through 12 are grossly intact. - Labs CBC & Chem 7: 06/16/19 07:40 06/19/19 08:31 Labs: Abnormal Lab Results - Last 24 Hours (Table) 06/18/19 06/19/19 Range/Units 18:13 08:31 D-Dimer 2.43 H (<0.60) mg/L FEU Potassium 3.1 L (3.5-5.1) mmol/L Chloride 109 H (98-107) mmol/L Creatinine 0.50 L (0.52-1.04) mg/dL Calcium 7.2 L (8.4-10.2) mg/dL Assessment and Plan Plan: 1. Hypercalcemia secondary to malignancy with metastatic disease to the bone. Nephrology consult appreciated. IV fluids decreased to 75 mL per hour, discontinue calcitonin, discontinue vitamin D. Electrophoresis studies negative. 2. Breast cancer with bone metastasis status post multiple surgical interventions. Oncology consult. 3. Paroxysmal atrial fibrillation. Continue Toprol-XL 25 mg in the morning and 50 mg at bedtime, Xarelto 20 mg daily. 4. Hypothyroidism. Continue levothyroxine 175 g daily. 5. Gastroesophageal reflux disease and GI prophylaxis. Continue Protonix. 6. Chronic pain syndrome. Continue Voltaren gel, Robaxin 750 mg every 6 hours as needed, OxyContin 30 mg extended release every 12 hours, oxycodone 10 mg every 4 hours as needed. 7. Seasonal ALLERGIES. Continue Claritin. 8. History of thyroid cancer. 9. Generalized anxiety disorder. Continue Xanax or 0.5 mg 4 times daily as needed. 10. Elevated liver function tests secondary to liver steatosis. 11. Nausea and vomiting most likely secondary to reaction to morphine. Con tinue Zofran, Pepcid, Carafate added. Check lipase level 12. Chest pain secondary to costochondritis. All studies have been negative. Echocardiogram report is pending. Cardiology consult appreciated. Toradol 2 doses will be ordered. Voltaren gel to the chest wall. Discharge plan: Return home with [facility] on Saturday. Impression and plan of care have been directed as dictated by the signing physician. Elayne Ambrosio nurse practitioner acting as scribe for signing physician.
[2019-06-19] MEDS: RIVAROXABAN 20 MG TAB PO SCH (16:37)
[2019-06-19] MEDS: METHOCARBAMOL 750 MG TAB PO PRN ×2 (16:46→23:20)
[2019-06-19] MEDS: METOPROLOL SUCCINATE (ER) 50 MG TAB.ER.24H PO SCH (21:03)
[2019-06-20] MEDS: ACETAMINOPHEN TAB 500 MG TAB PO SCH ×2 (06:18→09:08)
[2019-06-20] MEDS: LEVOTHYROXINE 75 MCG TAB PO SCH (06:18)
[2019-06-20] MEDS: LEVOTHYROXINE 100 MCG TAB PO SCH (06:18)
[2019-06-20 07:03] LABS: African American GFR (CKD) >90 (>60 ml/min/1.73 sqM); Anion Gap 6 mmol/L; Blood Urea Nitrogen 9 mg/dL (7-17); Calcium 7.1 mg/dL (8.4-10.2); Carbon Dioxide 24 mmol/L (22-30); Chloride 113 mmol/L (98-107); Glucose 106 mg/dL (74-99); Magnesium 1.9 mg/dL (1.6-2.3); Non-African American GFR(CKD) >90 (>60 ml/min/1.73 sqM); Potassium 4.3 mmol/L (3.5-5.1); Sodium 143 mmol/L (137-145)
[2019-06-20] MEDS: oxyCODONE ER 10 MG TAB.ER.12H PO SCH (09:06)
[2019-06-20] MEDS: POTASSIUM CHLORIDE ER 20 MEQ TAB.ER PO SCH (09:08)
[2019-06-20] MEDS: METOPROLOL SUCCINATE (ER) 25 MG TAB.ER.24H PO SCH (09:08)
[2019-06-20] MEDS: SENNOSIDES-DOCUSATE SODIUM 1 EACH TAB PO SCH (09:08)
[2019-06-20] MEDS: LORATADINE 10 MG TAB PO SCH (09:09)
[2019-06-20] MEDS: SUCRALFATE 1 GM TAB PO SCH ×2 (09:10→13:00)
[2019-06-20] MEDS: OMEPRAZOLE 20MG PO SCH (09:13)
[2019-06-20] MEDS: POLYETHYLENE GLYCOL 3350 17 GM POWD.PACK PO SCH ×2 (09:14→09:16)
--- NOTE | 2019-06-20 09:19 | P.PN ---
Subjective Patient is seen in follow-up for hypercalcemia. Calcium level today is down to 7.1. No vomiting overnight. Oral intake gradually improving. Urine output is good. Did develop chest pain yesterday but is better today. Vital signs are stable. General: The patient appeared well nourished and normally developed. HEENT: Head exam is unremarkable. Neck is without jugular venous distension. LUNGS: Lungs are clear to auscultation and percussion. Breath sounds decreased. HEART: Rate and Rhythm are regular. First and second heart sounds normal. No murmurs, rubs or gallops. ABDOMEN: Abdominal exam reveals normal bowel sounds. Non-tender and non- distended. No evidence of peritonitis. EXTREMITITES: No clubbing, cyanosis, or edema. Objective - Vital Signs Vital signs: Vital Signs Temp 97.9 F 06/20/19 05:00 Pulse 76 06/20/19 05:00 Resp 16 06/20/19 05:00 BP 104/72 06/20/19 05:00 Pulse Ox 97 06/20/19 05:00 Intake & Output 06/19/19 06/20/19 06/20/19 18:59 06:59 18:59 Intake Total 900 1490 Output Total 200 Balance 700 1490 Weight 78.018 kg Intake: Intake, IV Titration 900 650 Amount Sodium Chloride 0.9% 1, 900 650 000 ml @ 75 mls/hr IV . [id number] [facility] Rx#:[id number] Oral 840 Output: Urine 200 Other: Voiding Method Toilet Toilet # Voids 3 3 - Labs CBC & Chem 7: 06/16/19 07:40 06/20/19 06:17 Labs: Abnormal Lab Results - Last 24 Hours (Table) 06/19/19 06/20/19 Range/Units 08:31 06:17 Potassium 3.1 L (3.5-5.1) mmol/L Chloride 109 H 113 H (98-107) mmol/L Creatinine 0.50 L (0.52-1.04) mg/dL Glucose 106 H (74-99) mg/dL Calcium 7.2 L 7.1 L (8.4-10.2) mg/dL Assessment and Plan Plan: Assessment: 1. Hypercalcemia, [id number]. Etiology is malignancy with bone metastasis as well as component of volume contraction. Improved. Status post calcitonin and Zometa. PTH appropriately suppressed. Vitamin D level 53.9. 1,25 D3 18. ANJANA mildly elevated at 67. No monoclonality noted on serum immunofixation. Calcium today 7.1 however her albumin has also been low. Therefore her corrected calcium is a little bit higher. 2. Breast cancer with bone metastasis. 3. Benign hypertension. Controlled. 4. Hypokalemia from poor oral intake. Better. Plan: Hep-Lock IV fluids. Encouraged oral intake. Repeat electrolytes in the morning.
[2019-06-20] MEDS: NEOMYCIN-BACITRACIN-POLY OINT 14 GM TUBE TOPICAL PRN (13:08)
[2019-06-20 13:09] VITALS: BP 116/75; RESP 17; TEMP 97.5
[2019-06-20 15:14] VITALS: PULSE 106
--- NOTE | 2019-06-20 15:18 | P.DS ---
Providers Date of admission: 06/15/19 15:43 Expected date of discharge: 06/20/19 Attending physician: Amelia Abarca Consults: 06/15/19 15:43 Consult Physician Urgent Consulting Provider: Vince Mccormick Consult Reason/Comments: Hypercalcemia Do you want consulting provider notified?: Yes Consult Physician Urgent Consulting Provider: Lissett Ordonez Consult Reason/Comments: Breast cancer Do you want consulting provider notified?: Yes 06/18/19 17:26 Consult Physician Urgent Consulting Provider: An Al Consult Reason/Comments: chest pain Do you want consulting provider notified?: Yes Primary care physician: Krishan Thompson [facility] Course: This is a 58-year-old female patient of Micheal Nielsen NP with past medical history of breast cancer status post lumpectomy in 2010 with recurrence of invasive ductal carcinoma stage III grade IIIa with lumpectomy July 2013 with bone metastasis and multiple pathologic compression fractures. Status post cervical fusion, right femur nail and titanium joaquín all positive for cancer in December 2018, kyphoplasty L3 followed by kyphoplasty T12, L1, L5-S1 with radiofrequency ablation April 2019, history of thyroid cancer status post lobectomy and radiation therapy, chronic atrial fibrillation status post ablation on Xarelto, hypothyroidism, chronic pain syndrome, gastroesophageal reflux disease, generalized anxiety disorder. Patient's last chemotherapy was performed on 05/13/2019. Last radiation to the cervical, right femur and lumbar areas completed on 02/20/2019. PET scan on 06/06/2019 revealed osseous metastatic disease. Patient has [facility] care in place. Patient states that she was at [facility] from May 21 through the June 02 at which time she underwent lumbar spine procedures. She states she also has a left scapular fracture and rib fractures. Old fractures are pathologic related to cancer with metastatic disease. She had previously received all her care at [facility] and as of Saturday switch to Dr. Ordonez. Patient received a call that she needed to come into the hospital as her calcium was elevated. Patient is complaining of numbness to her face that she has had for a couple weeks along with nausea and vomiting. Patient is complaining of significant pain all over her body. Nurse relates that at 3 AM patient became very anxious and agitated. Her normally gives her a Xanax at 3 in the morning for this reason and instructions have been provided to do the same year. Patient says she has also become very weak and she needs to build ambulate to the bathroom in order for her to care for her at home. Patient came into [facility] emergency center for evaluation. Calcium was 14.9, ionized calcium 8.0, AST 88, ALT 57, alkaline phosphatase 235, troponin negative, albumin 4.2, electrolytes within normal limits, BUN 20 creatinine 0.73. INR 1.0. WBC 4.5, hemoglobin 12, platelet count 213. EKG in normal sinus rhythm. Patient was afebrile, blood pressure 101/65, heart rate in the 80s, pulse ox 95% on room air. Patient was started on IM calcitonin and status post 1 dose of zoledronic acid 4 mg IV. Patient was admitted to the [facility] floor and consults requested with nephrology and oncology. Repeat lab work this morning revealed a calcium 11.2 and ionized calcium 6.1, AST 68, ALT 55, alkaline phosphatase 224. Parathyroid hormone intact was 3.4. 06/17: Repeat calcium this morning is 8.6. Dr. Mccormick has recommended decreasing IV fluids to 75 mL per hour, discontinue calcitonin and follow-up on urine immunofixation. Patient states she continues to have significant nausea. She did have an emesis last evening. She thinks the nausea and vomiting has been related to the MS Contin which should be out of her system soon. She denies having any bowel movement. She does complain of abdominal pain in epigastric area. Carafate ordered as well as a lipase level. Physical therapy added. 06/18: Patient states that she is feeling okay today. Her nausea is better but still there a little bit. She denies abdominal pain. She states she has walked in her room twice. She is complaining of constipation and milk of magnesia is available. She states she yogurt last night and for breakfast this morning. Calcium 7.8, total bilirubin 0.4, AST 68, ALT 45, alkaline phosphatase 176. No monoclonal paraprotein recognized on the immunofixation. Plan to increase activity, increase oral intake, resolved constipation and plan for discharge home tomorrow. 06/19: Patient developed chest pain yesterday and d-dimer was elevated, patient was finally underwent a CT angiogram of the chest that was negative for pulmonary embolism but did show extensive metastatic disease in the bony thorax. Cardiology consult was added. Echocardiogram was ordered. Troponins have been negative on 2 draws. There is no bilateral pleural effusions and atelectasis at the lung bases. Calcium 7.2. Potassium 3.1 and will be replaced, BUN 8 and creatinine 0.50. Magnesium 1.9. Patient is gradually increasing her oral intake. No vomiting. Patient has had a large bowel movement and refused to have abdominal x-rays. Constipation has resolved. Patient has been evaluated by physical therapy with recommendations for home care and 24 hour supervision. At the time of evaluation, patient continues to have chest pain in the midsternal area with increased pain with movement. She states stretching does help it. She denies any nausea or vomiting. Toradol 2 doses will be ordered and Voltaren gel to be applied to her chest. Patient will be monitored overnight and plan for discharge home tomorrow. 06/20: Patient's doing much better, no nausea vomiting, appetite and regular diet has been tolerated, chest wall pain is better with Voltaren gel, was given few doses of Toradol, she keeps her pain medication post discharge without any increase in requirements, patient does not have any lightheadedness nausea or vomiting this time, and is stable for discharge today. No new recommendations from nephrology, patient wants to just see in the college is 40 hyperkalemia, vitamin D discontinued on discharge as well as Tums, patient to have have calcium monitored as an outpatient. And can restart vitamin D later with levels at that time with adjustment of dosing DISCHARGE DIAGNOSES WITH PLAN OF CARE 1. Hypercalcemia secondary to malignancy with metastatic disease to the bone resolved. Nephrology consult appreciated. Status post Zometa treatments discontinue calcitonin, discontinue vitamin D. Electrophoresis studies negative. 2. Breast cancer with bone metastasis status post multiple surgical interventions. Oncology Dr. Ordonez as an outpatient 3. Paroxysmal atrial fibrillation. Continue Toprol-XL 25 mg in the morning and 50 mg at bedtime, Xarelto 20 mg daily. 4. Hypothyroidism. Continue levothyroxine 175 g daily. 5. Gastroesophageal reflux disease and GI prophylaxis. Continue Protonix. 6. Chronic pain syndrome. Continue Voltaren gel, Robaxin 750 mg every 6 hours as needed, OxyContin 30 mg extended release every 12 hours, oxycodone 10 mg every 4 hours as needed. Pain med per pain physician Dr. Ordonez no additional requirements post discharge 7. Seasonal ALLERGIES. Continue Claritin. 8. History of thyroid cancer. 9. Generalized anxiety disorder. Continue Xanax or 0.5 mg 4 times daily as needed. 10. Elevated liver function tests secondary to liver steatosis. 11. Nausea and vomiting most likely secondary to reaction to morphine symptoms resolved on discharge. Continue Zofran, Pepcid, Carafate added. Check lipase level 12. Chest pain secondary to costochondritis. All studies have been negative. Echocardiogram report is pending. Cardiology consult appreciated. Toradol 2 doses will be ordered. Voltaren gel to the chest wall. Discharge plan: Return home with [facility] on Saturday, stable. Patient Condition at Discharge: Good Plan - Discharge Summary Discharge Rx Participant: No New Discharge Prescriptions: New Sucralfate [Carafate] 1 gm PO AC-TID #90 tab oxyCODONE ER [OxyCONTIN] 30 mg PO Q12HR tab.er.12h Continue Omeprazole 20 mg PO DAILY Loratadine 10 mg PO DAILY Levothyroxine Sodium [Synthroid] 175 mcg PO DAILY@0500 ALPRAZolam [Xanax] 0.5 mg PO QID PRN PRN Reason: Anxiety oxyCODONE HCL [Roxicodone] 10 mg PO Q4H PRN PRN Reason: Pain Methocarbamol [Robaxin] 750 mg PO Q6H PRN PRN Reason: Spasms Rivaroxaban [Xarelto] 20 mg PO W/SUPPER HYDROmorphone HCL 2 mg PO Q6H PRN PRN Reason: Breakthrough Pain Potassium Chloride [Klor-Con 20] 20 meq PO DAILY Diclofenac Sodium [Voltaren Gel] 2 gram TOPICAL QID PRN PRN Reason: Pain Metoprolol Succinate (ER) [Toprol XL] 50 mg PO HS Metoprolol Succinate (ER) [Toprol XL] 25 mg PO DAILY Sennosides [Senna] 8.6 mg PO BID Polyethylene Glycol 3350 [Miralax] 17 gm PO DAILY Acetaminophen Tab [Tylenol] 1,000 mg PO Q8H Discontinued Calcium Carbonate [Tums] 500 - 1,000 mg PO QID PRN PRN Reason: Heartburn Ergocalciferol [Vitamin D2] 50,000 unit PO [place] Morphine Sulfate ER [Ms Contin] 30 mg PO Q12HR Colace 50 mg PO BID Discharge Medication List Levothyroxine Sodium [Synthroid] 175 mcg PO DAILY@0500 09/15/17 [History] Loratadine 10 mg PO DAILY 09/15/17 [History] Omeprazole 20 mg PO DAILY 09/15/17 [History] ALPRAZolam [Xanax] 0.5 mg PO QID PRN 07/01/18 [History] Acetaminophen Tab [Tylenol] 1,000 mg PO Q8H 06/15/19 [History] Diclofenac Sodium [Voltaren Gel] 2 gram TOPICAL QID PRN 06/15/19 [History] HYDROmorphone HCL 2 mg PO Q6H PRN 06/15/19 [History] Methocarbamol [Robaxin] 750 mg PO Q6H PRN 06/15/19 [History] Metoprolol Succinate (ER) [Toprol XL] 25 mg PO DAILY 06/15/19 [History] Metoprolol Succinate (ER) [Toprol XL] 50 mg PO HS 06/15/19 [History] Polyethylene Glycol 3350 [Miralax] 17 gm PO DAILY 06/15/19 [History] Potassium Chloride [Klor-Con 20] 20 meq PO DAILY 06/15/19 [History] Rivaroxaban [Xarelto] 20 mg PO W/SUPPER 06/15/19 [History] Sennosides [Senna] 8.6 mg PO BID 06/15/19 [History] oxyCODONE HCL [Roxicodone] 10 mg PO Q4H PRN 06/15/19 [History] Sucralfate [Carafate] 1 gm PO AC-TID #90 tab 06/20/19 [Rx] oxyCODONE ER [OxyCONTIN] 30 mg PO Q12HR tab.er.12h 06/20/19 [Rx] Follow up Appointment(s)/Referral(s): Coleman Nielsen NPC [REFERRING] - 1 Week [facility], [NON-STAFF] - 1 Week Lsisett Ordonez MD [STAFF PHYSICIAN] - 2 Weeks Patient Instructions/Handouts: Sucralfate (By mouth), Hypercalcemia (DC) Activity/Diet/Wound Care/Special Instructions: activity limited until seen by the Dr. Diet as tolerated Discharge Disposition: HOME WITH HOME HEALTH SERVICES Care Plan Goals (MU): please give patient her home med prilosec that is in med bin box before discharged
[2019-06-21] MEDS ORDERED: ERGOCALCIFEROL 50,000 UNIT CAP PO SCH (09:00)
== END 2019-06-20 16:47 | disposition home health service (06) | DRG 641 ==
LOC: EC 12:10 → 3NMEDONC 15:43
PROVIDERS: ADMIT Family Medicine; ATTEND Family Medicine
DX: E83.52 Hypercalcemia (principal); C79.51 Secondary malignant neoplasm of bone; I48.0 Paroxysmal atrial fibrillation; K76.0 Fatty (change of) liver, not elsewhere classified; C50.919 Malignant neoplasm of unspecified site of unspecified female breast; E89.0 Postprocedural hypothyroidism; E87.6 Hypokalemia; F41.1 Generalized anxiety disorder; G89.4 Chronic pain syndrome; I10 Essential (primary) hypertension; J30.2 Other seasonal allergic rhinitis; K59.00 Constipation, unspecified; M79.7 Fibromyalgia; M94.0 Chondrocostal junction syndrome [Tietze]; K21.9 Gastro-esophageal reflux disease without esophagitis; K57.90 Diverticulosis of intestine, part unspecified, without perforation or abscess without bleeding; M54.9 Dorsalgia, unspecified; R11.2 Nausea with vomiting, unspecified; T40.2X5A Adverse effect of other opioids, initial encounter; E66.9 Obesity, unspecified; Z68.28 Body mass index [BMI] 28.0-28.9, adult; Z79.01 Long term (current) use of anticoagulants; Z79.890 Hormone replacement therapy; Z79.899 Other long term (current) drug therapy; Z88.1 Allergy status to other antibiotic agents; Z88.8 Allergy status to other drugs, medicaments and biological substances; Z85.850 Personal history of malignant neoplasm of thyroid; Z90.710 Acquired absence of both cervix and uterus; Z92.3 Personal history of irradiation; Z98.1 Arthrodesis status; Z82.5 Family history of asthma and other chronic lower respiratory diseases
CPT/HCPCS: 36415; 71275; 80048; 80053; 82164; 82306; 82330; 82652; 83690; 83735; 83970; 84165; 84484; 85025; 85379; 85610; 85730; 86334; 86335; 93005; 93306; 94760; 96361; 96374; 96375; 99285

== ENCOUNTER 2019-07-01 16:17 | Emergency (ER) | payer BC ==
--- NOTE | 2019-07-01 16:57 | ED ---
General Adult HPI - General Source: patient Mode of arrival: wheelchair Limitations: no limitations <Mookie Madsen - Last Filed: 07/01/19 16:56> <Mello Castañeda - Last Filed: 07/01/19 22:59> - General Chief complaint: Recheck/Abnormal Lab/Rx Stated complaint: ABNORMAL LABS, PAIN, Ca patient - History of Present Illness Initial comments: 58-year-old female presents emergency apartment it for generalized body pain. Patient was sent from Dr. North office for possible abnormal labs. They're concerned about her calcium level secondary to her diffuse body cramping, pain. Patient states that she does have chronic pain issues she's had multiple surgeries in the past. Patient states she started oral chemo and had a recent injection. Patient states that she does not know her calcium level though they believe it is elevated. Patient reports no fevers or chills. Patient states that she has breast cancer with metastasis to bone. (Mookie Madsen) - Related Data Home Medications Medication Instructions Recorded Confirmed RX: Levothyroxine Sodium 175 mcg PO DAILY@0500 09/15/17 06/15/19 [Synthroid] RX: Loratadine 10 mg PO DAILY 09/15/17 06/15/19 RX: Omeprazole 20 mg PO DAILY 09/15/17 06/15/19 RX: ALPRAZolam [Xanax] 0.5 mg PO QID PRN 07/01/18 06/15/19 RX: Acetaminophen Tab [Tylenol] 1,000 mg PO Q8H 06/15/19 06/15/19 RX: Diclofenac Sodium [Voltaren 2 gram TOPICAL QID PRN 06/15/19 06/15/19 Gel] RX: HYDROmorphone HCL 2 mg PO Q6H PRN 06/15/19 06/15/19 RX: Methocarbamol [Robaxin] 750 mg PO Q6H PRN 06/15/19 06/15/19 RX: Metoprolol Succinate (ER) 25 mg PO DAILY 06/15/19 06/15/19 [Toprol XL] RX: Metoprolol Succinate (ER) 50 mg PO HS 06/15/19 06/15/19 [Toprol XL] RX: Polyethylene Glycol 3350 17 gm PO DAILY 06/15/19 06/15/19 [Miralax] RX: Potassium Chloride [Klor-Con 20 meq PO DAILY 06/15/19 06/15/19 20] RX: Rivaroxaban [Xarelto] 20 mg PO W/SUPPER 06/15/19 06/15/19 RX: Sennosides [Senna] 8.6 mg PO BID 06/15/19 06/15/19 RX: oxyCODONE HCL [Roxicodone] 10 mg PO Q4H PRN 06/15/19 06/15/19 Previous Rx's Medication Instructions Recorded RX: Sucralfate [Carafate] 1 gm PO AC-TID #90 tab 06/20/19 RX: oxyCODONE ER [OxyCONTIN] 30 mg PO Q12HR tab.er.12h 06/20/19 Allergies Allergy/AdvReac Type Severity Reaction Status Date / Time gabapentin Allergy Rash/Hives Verified 06/15/19 14:17 morphine [From MS Contin] Allergy Nausea & Verified 07/01/19 16:51 Vomiting & Diarrhea vancomycin Allergy Rash/Hives Verified 06/15/19 14:17 Review of Systems ROS Other: All systems not noted in ROS Statement are negative. <Mookie Madsen - Last Filed: 07/01/19 16:56> ROS Other: All systems not noted in ROS Statement are negative. <Mello Castañeda - Last Filed: 07/01/19 22:59> ROS Statement: Those systems with pertinent positive or pertinent negative responses have been documented in the HPI. Past Medical History Past Medical History: Atrial Fibrillation, Cancer, Fibromyalgia, GERD/Reflux, Thyroid Disorder Additional Past Medical History / Comment(s): breast cancer status post lumpectomy in 2010 with recurrence of invasive ductal carcinoma stage III grade IIIa with lumpectomy July 2013 with bone metastasis and multiple pathologic compression fractures. Status post cervical fusion, right femur nail and titanium joaqíun all positive for cancer in December 2018, kyphoplasty L3 followed by kyphoplasty T12, L1, L5-S1 with radiofrequency ablation April 2019, history of thyroid cancer status post lobectomy and radiation therapy, chronic atrial fibrillation status post ablation on Xarelto, hypothyroidism, chronic pain syndrome, gastroesophageal reflux disease, generalized anxiety disorder. History of Any Multi-Drug Resistant Organisms: None Reported Past Surgical History: Ablation, Back Surgery, Cholecystectomy, Hysterectomy, Orthopedic Surgery Additional Past Surgical History / Comment(s): lumpectomy left breast x3, lobectomy thyroid, c5 c6 c7 fusion, bone marrow biopsy, bar/nail in right thigh and plate in right arm, ablation on heart 2013, gallstone removed from bile du ct, left breast re-incision for clear margins in 2014,port plcement, 2015 had port removed, kyphoplasty on back x3 and radiofrequncy ablation to back, Past Anesthesia/Blood Transfusion Reactions: Previous Problems w/ Anesthesia Additional Past Anesthesia/Blood Transfusion Reaction / Comment(s): Hard time waking up and hypothermia Past Psychological History: No Psychological Hx Reported Smoking Status: Never smoker Past Alcohol Use History: None Reported Past Drug Use History: None Reported - Past Family History Son(s) History Unknown: Yes Additional Family Medical History / Comment(s): Small nodule on thyroid, no other history Father Additional Family Medical History / Comment(s): Patient does not know any history on her father. Mother Additional Family Medical History / Comment(s): Mother at age 83 from a perforated bowel with fistula to the bladder, COPD history. Brother(s) Additional Family Medical History / Comment(s): Patient has 1 brother that had part of his colon removed. Patient does not have any sisters. <Mookie Madsen M - Last Filed: 07/01/19 16:56> General Exam Limitations: no limitations <Mookie Madsen M - Last Filed: 07/01/19 16:56> General appearance: alert, anxious Head exam: Present: atraumatic, normocephalic, normal inspection Eye exam: Present: normal appearance, PERRL, EOMI. Absent: scleral icterus, conjunctival injection, periorbital swelling ENT exam: Present: mucous membranes dry Neck exam: Present: normal inspection. Absent: tenderness, meningismus, lymphadenopathy Respiratory exam: Present: normal lung sounds bilaterally. Absent: respiratory distress, wheezes, rales, rhonchi, stridor Cardiovascular Exam: Present: normal rhythm, tachycardia, normal heart sounds. Absent: systolic murmur, diastolic murmur, rubs, gallop, clicks GI/Abdominal exam: Present: soft, normal bowel sounds. Absent: distended, tenderness, guarding, rebound, rigid Extremities exam: Present: normal inspection, full ROM, normal capillary refill. Absent: tenderness, pedal edema, joint swelling, calf tenderness Back exam: Present: normal inspection Neurological exam: Present: alert, oriented X3, CN II-XII intact Psychiatric exam: Present: anxious Skin exam: Present: warm, dry, intact, normal color. Absent: rash <Mello Castañeda - Last Filed: 07/01/19 22:59> - General Exam Comments Initial Comments: This is a well-developed well-nourished awake alert anxious appearing female (Mello Castañeda) Course <Mello Castañeda - Last Filed: 07/01/19 22:59> Vital Signs 07/01/19 07/01/19 07/01/19 16:48 18:58 21:04 Temperature 98.0 F Pulse Rate 104 H 90 Respiratory 20 19 Rate Blood Pressure 116/78 122/72 122/72 O2 Sat by Pulse 96 96 100 Oximetry 07/01/19 22:11 Temperature 98 F Pulse Rate 92 Respiratory 18 Rate Blood Pressure 130/84 O2 Sat by Pulse 96 Oximetry - Reevaluation(s) Reevaluation #1: 07/01/19 17:25 Patient was started with ATP she presents with complaints of generalized body pain chest pain bone pain 20/10 in severity she was sent from Dr. Ordonez's office for this. She states her calcium has been high in the past and was low on a blood test on about 2 weeks ago. She has no idea what level it is at this time. She also complains of a 9 pound weight loss last 2 weeks did decrease oral i ntake. In addition to the above finding she's very anxious. (Mello Castañeda) Reevaluation #2: 07/01/19 22:02 Patient was given IV fluids as well as initially oral medication she declined repeat dosing of that a lot of. She was still having a lot of pain she findings except fluids and IV medication. Calcium levels are within normal limits. (Mello Castañeda) Medical Decision Making - Lab Data Result diagrams: 07/01/19 17:31 07/01/19 17:31 <Mello Castañeda - Last Filed: 07/01/19 22:59> - Medical Decision Making The patient did finally get relief and resolution of her exacerbation of chronic pain after IV hydration and the meds or given. After long discussion with her and her sister who was present patient is comfortable with being discharged to resume her home medications. She was counseled on staying hydrated which she admitted she does not do very well. (Mello Castañeda) - Lab Data Lab Results 07/01/19 07/01/19 Range/Units 17:31 17:31 WBC 5.9 (3.8-10.6) k/uL RBC 3.85 (3.80-5.40) m/uL Hgb 11.7 (11.4-16.0) gm/dL Hct 36.4 (34.0-46.0) % MCV 94.6 (80.0-100.0) fL MCH 30.3 (25.0-35.0) pg MCHC 32.1 (31.0-37.0) g/dL RDW 18.1 H (11.5-15.5) % Plt Count 157 (150-450) k/uL Neutrophils % (Manual) 69 % Band Neutrophils % 6 % Lymphocytes % (Manual) 8 % Monocytes % (Manual) 8 % Eosinophils % (Manual) 1 % Basophils % (Manual) 1 % Metamyelocytes % 3 % Myelocytes % 5 % Neutrophils # (Manual) 4.40 (1.3-7.7) k/uL Lymphocytes # (Manual) 0.47 L (1.0-4.8) k/uL Monocytes # (Manual) 0.47 (0-1.0) k/uL Eosinophils # (Manual) 0.06 (0-0.7) k/uL Basophils # (Manual) 0.06 (0-0.2) k/uL Metamyelocytes # (Man) 0.18 H (0) k/uL Myelocytes # (Manual) 0.30 H (0) k/uL Nucleated RBCs 17 H (0-0) /100 WBC Polychromasia Present Hypochromasia Slight Poikilocytosis Slight Anisocytosis Slight Macrocytosis Slight Sodium 140 (137-145) mmol/L Potassium 4.4 (3.5-5.1) mmol/L Chloride 106 (98-107) mmol/L Carbon Dioxide 22 (22-30) mmol/L Anion Gap 12 mmol/L BUN 12 (7-17) mg/dL Creatinine 0.65 (0.52-1.04) mg/dL Est GFR (CKD-EPI)AfAm >90 (>60 ml/min/1.73 sqM) Est GFR (CKD-EPI)NonAf >90 (>60 ml/min/1.73 sqM) Glucose 101 H (74-99) mg/dL Calcium 9.5 (8.4-10.2) mg/dL Ionized Calcium Radha 4.8 (4.5-5.3) mg/dL Magnesium 1.9 (1.6-2.3) mg/dL Total Bilirubin 0.7 (0.2-1.3) mg/dL AST 145 H (14-36) U/L ALT 91 H (9-52) U/L Alkaline Phosphatase 333 H (38-126) U/L Creatine Kinase 114 (30-135) U/L Total Protein 7.5 (6.3-8.2) g/dL Albumin 4.3 (3.5-5.0) g/dL Disposition <Mookie Madsen - Last Filed: 07/01/19 16:56> Is patient prescribed a controlled substance at d/c from ED?: No <Mello Castañeda - Last Filed: 07/01/19 22:59> Clinical Impression: Exacerbation of chronic back pain, Feared condition not demonstrated Disposition: HOME SELF-CARE Condition: Good Instructions (If sedation given, give patient instructions): Chronic Back Pain (DC) Additional Instructions: Stay well-hydrated, continue with your current pain medication Referrals: Krishan Javed MD [Primary Care Provider] - 1-2 days
[2019-07-01] MEDS ORDERED: SODIUM CHLORIDE 0.9% 1,000 ML IV STA ×3 (17:23→20:12)
[2019-07-01] MEDS ORDERED: HYDROmorphone 1 MG/ML 1 ML SYRINGE IVP STA ×2 (17:23→21:58)
[2019-07-01 17:41] LABS: Anisocytosis Slight; HCT 36.4 % (34.0-46.0); HGB 11.7 gm/dL (11.4-16.0); Hypochromasia Slight; MCH 30.3 pg (25.0-35.0); MCHC 32.1 g/dL (31.0-37.0); MCV 94.6 fL (80.0-100.0); Macrocytosis Slight; Mean Platelet Volume 7.2; Platelet Count 157 k/uL (150-450); Poikilocytosis Slight; RBC 3.85 m/uL (3.80-5.40); RDW 18.1 % (11.5-15.5)
[2019-07-01 17:46] LABS: Ionized Calcium 4.8 mg/dL (4.5-5.3)
[2019-07-01 17:55] LABS: ALT 91 U/L (9-52); AST 145 U/L (14-36); African American GFR (CKD) >90 (>60 ml/min/1.73 sqM); Albumin 4.3 g/dL (3.5-5.0); Alkaline Phosphatase 333 U/L (38-126); Anion Gap 12 mmol/L; Blood Urea Nitrogen 12 mg/dL (7-17); Calcium 9.5 mg/dL (8.4-10.2); Carbon Dioxide 22 mmol/L (22-30); Chloride 106 mmol/L (98-107); Creatine Kinase 114 U/L (30-135); Glucose 101 mg/dL (74-99); Magnesium 1.9 mg/dL (1.6-2.3); Non-African American GFR(CKD) >90 (>60 ml/min/1.73 sqM); Potassium 4.4 mmol/L (3.5-5.1); Sodium 140 mmol/L (137-145); Total Bilirubin 0.7 mg/dL (0.2-1.3); Total Protein 7.5 g/dL (6.3-8.2)
[2019-07-01] MEDS: ONDANSETRON 4 MG/2 ML VIAL IVP STA ×2 (18:43→22:04)
[2019-07-01 18:44] LABS: Band Neutrophils % 6 %; Metamyelocytes % 3 %; Myelocytes % 5 %; Neutrophils % (M) 69 %; Nucleated Red Blood Cells 17 /100 WBC (0-0); Total Cells Counted 200
[2019-07-01 18:45] LABS: Basophils # (M) 0.06 k/uL (0-0.2); Eosinophils # (M) 0.06 k/uL (0-0.7); Lymphocytes # (M) 0.47 k/uL (1.0-4.8); Metamyelocytes # (M) 0.18 k/uL (0); Monocytes # (M) 0.47 k/uL (0-1.0); Polychromasia Present; WBC 5.9 k/uL (3.8-10.6)
[2019-07-01] MEDS ORDERED: oxyCODONE-APAP 10-325MG 1 EACH TAB PO STA (20:13)
[2019-07-01] MEDS ORDERED: LORazepam 2 MG/ML INJ IV STA (20:44)
[2019-07-01 22:14] VITALS: BP 130/84; PULSE 92; RESP 18; TEMP 98
== END 2019-07-01 23:30 | disposition home or self-care (01) ==
LOC: EC 16:17
DX: M54.9 Dorsalgia, unspecified (principal); G89.29 Other chronic pain; Z71.1 Person with feared health complaint in whom no diagnosis is made; R00.0 Tachycardia, unspecified; C79.51 Secondary malignant neoplasm of bone; I48.20 Chronic atrial fibrillation, unspecified; M79.7 Fibromyalgia; K21.9 Gastro-esophageal reflux disease without esophagitis; E89.0 Postprocedural hypothyroidism; Z88.1 Allergy status to other antibiotic agents; Z88.5 Allergy status to narcotic agent; Z88.8 Allergy status to other drugs, medicaments and biological substances; Z79.01 Long term (current) use of anticoagulants; Z79.890 Hormone replacement therapy; Z79.891 Long term (current) use of opiate analgesic; Z79.899 Other long term (current) drug therapy; Z85.3 Personal history of malignant neoplasm of breast; Z85.850 Personal history of malignant neoplasm of thyroid; Z92.21 Personal history of antineoplastic chemotherapy; Z92.3 Personal history of irradiation; Z98.1 Arthrodesis status; Z98.890 Other specified postprocedural states
CPT/HCPCS: 99283; 96374; 96375 ×2; 96376; 96361 ×5; 36415; 80053; 82330; 82550; 83735; 85025; J2060; J2405; J1170

== ENCOUNTER 2019-08-07 18:17 | Inpatient (IN) | payer BC ==
[2019-08-07] MEDS ORDERED: SODIUM CHLORIDE 0.9% 1,000 ML IV STA (19:35)
[2019-08-07] MEDS ORDERED: ONDANSETRON 4 MG/2 ML VIAL IVP STA (19:35)
[2019-08-07] MEDS ORDERED: HYDROmorphone 1 MG/ML 1 ML SYRINGE IVP STA ×2 (19:40→22:19)
[2019-08-07 20:35] LABS: Albumin 4.2 g/dL (3.5-5.0); Potassium 3.5 mmol/L (3.5-5.1); Total Bilirubin 1.2 mg/dL (0.2-1.3); Total Protein 7.6 g/dL (6.3-8.2)
--- NOTE | 2019-08-07 20:36 | ED ---
General Adult HPI - General Chief complaint: Nausea/Vomiting/Diarrhea Stated complaint: bone cancer/vomiting & pain Time Seen by Provider: 08/07/19 19:23 Source: patient, family Mode of arrival: ambulatory Limitations: no limitations - History of Present Illness Initial comments: Dictation was produced using [employer] dictation software. please excuse any grammatical, word or spelling errors. Chief Complaint: 58-year-old male presents with nausea vomiting and total body pain. History of Present Illness: 28-year-old female she has past medical history of breast cancer and thrush. Patient has been without cancer treatment for the las t 15 days. Her oncologist is Dr. Ordonez. Over the last 3-4 days she's been having worsening total body pain. She is also having significant nausea and vomiting. She states that her emesis is nonbilious not bloody. Denies any fever. Patient states she hurts all over. She is told that she has a history of hypercalcemia. Denies any fever, chills or night sweats. She also complains of diffuse abdominal pain. The ROS documented in this emergency department record has been reviewed and confirmed by me. Those systems with pertinent positive or negative responses have been documented in the HPI. All other systems are other negative and/or noncontributory. PHYSICAL EXAM: General Impression: Alert and oriented x3, not in acute distress HEENT: Normocephalic atraumatic, extra-ocular movements intact, pupils equal and reactive to light bilaterally, dry mucous membranes Cardiovascular: Heart regular rate and rhythm, S1&S2 audible, no murmurs, rubs or gallops Chest: Lungs clear to auscultation bilaterally, no rhonchi, no wheeze, no rales Abdomen: Diffuse abdominal tenderness to palpation Musculoskeletal: Pulses present and equal in all extremities, no peripheral edema Motor: no focal deficits noted Neurological: CN II-XII grossly intact, no focal motor or sensory deficits noted Skin: Intact with no visualized rashes Psych: Normal affect and mood ED course: 58-year-old female presents with nausea, vomiting and total body pain. She has history of breast cancer. Ends upon arrival are within acceptable limits. Laboratory evaluation obtained. There is pancytopenia likely secondary to recent cancer treatment. Metabolic panel shows elevated creatinine of 1.7H. This is consistent with acute kidney injury. Calcium is 18.1 alk phos of 203 with a lipase of 3000. Clinical presentation consistent with hypercalcemia and pancreatitis. Discussed patient case with Dr. Abarca who requests patient be given bisphosphonates color ultrasound shows no acute findings. She has history of cholecystectomy. Chest x-ray shows extensive osteolytic lesions consistent with multiple myeloma which appears to be new. No other findings.. Patient be admitted with consultation to oncology and ER for pancreatitis. - Related Data Home Medications Medication Instructions Recorded Confirmed Levothyroxine Sodium [Synthroid] 175 mcg PO DAILY@0500 09/15/17 08/07/19 Loratadine 10 mg PO DAILY PRN 09/15/17 08/07/19 Acetaminophen Tab [Tylenol] 1,000 mg PO Q8H 06/15/19 08/07/19 HYDROmorphone HCL 2 mg PO Q6H PRN 06/15/19 08/07/19 Methocarbamol [Robaxin] 1,500 mg PO Q6H PRN 06/15/19 08/07/19 Metoprolol Succinate (ER) [Toprol 25 mg PO DAILY 06/15/19 08/07/19 XL] Metoprolol Succinate (ER) [Toprol 50 mg PO HS 06/15/19 08/07/19 XL] Polyethylene Glycol 3350 [Miralax] 17 gm PO DAILY 06/15/19 08/07/19 Potassium Chloride [Klor-Con 20] 20 meq PO DAILY 06/15/19 08/07/19 Rivaroxaban [Xarelto] 20 mg PO W/SUPPER 06/15/19 08/07/19 Sennosides [Senna] 8.6 mg PO BID 06/15/19 08/07/19 oxyCODONE HCL [Roxicodone] 10 mg PO Q4H PRN 06/15/19 08/07/19 Docusate [Colace] 100 mg PO DAILY PRN 08/07/19 08/07/19 LORazepam [Ativan] 0.5 mg PO TID PRN 08/07/19 08/07/19 Omeprazole 20 mg PO DAILY 08/07/19 08/07/19 Palbociclib [Ibrance] 100 mg PO DIRECTED 08/07/19 08/07/19 oxyCODONE HCL [OxyCONTIN] 30 mg PO Q12H 08/07/19 08/07/19 Allergies Allergy/AdvReac Type Severity Reaction Status Date / Time gabapentin Allergy Rash/Hives Verified 08/07/19 21:58 vancomycin Allergy Rash/Hives Verified 08/07/19 21:58 morphine [From MS Contin] AdvReac Nausea & Verified 08/07/19 21:58 Vomiting & Diarrhea Review of Systems ROS Statement: Those systems with pertinent positive or pertinent negative responses have been documented in the HPI. ROS Other: All systems not noted in ROS Statement are negative. Past Medical History Past Medical History: Atrial Fibrillation, Cancer, Fibromyalgia, GERD/Reflux, Thyroid Disorder Additional Past Medical History / Comment(s): breast cancer status post lumpectomy in 2010 with recurrence of invasive ductal carcinoma stage III grade IIIa with lumpectomy July 2013 with bone metastasis and multiple pathologic compression fractures. Status post cervical fusion, right femur nail and titanium joaquín all positive for cancer in December 2018, kyphoplasty L3 followed by kyphoplasty T12, L1, L5-S1 with radiofrequency ablation April 2019, history of thyroid cancer status post lobectomy and radiation therapy, chronic atrial fibrillation status post ablation on Xarelto, hypothyroidism, chronic pain syndrome, gastroesophageal reflux disease, generalized anxiety disorder. History of Any Multi-Drug Resistant Organisms: None Reported Past Surgical History: Ablation, Back Surgery, Cholecystectomy, Hysterectomy, Orthopedic Surgery Additional Past Surgical History / Comment(s): lumpectomy left breast x3, lobectomy thyroid, c5 c6 c7 fusion, bone marrow biopsy, bar/nail in right thigh and plate in right arm, ablation on heart 2012, gallstone removed from bile duct, left breast re-incision for clear margins in 2013,port plcement, 2014 had port removed, kyphoplasty on back x3 and radiofrequncy ablation to back, Past Anesthesia/Blood Transfusion Reactions: Previous Problems w/ Anesthesia Additional Past Anesthesia/Blood Transfusion Reaction / Comment(s): Hard time waking up and hypothermia Past Psychological History: No Psychological Hx Reported Smoking Status: Never smoker Past Alcohol Use History: None Reported Past Drug Use History: None Reported - Past Family History Son(s) History Unknown: Yes Additional Family Medical History / Comment(s): Small nodule on thyroid, no other history Father Additional Family Medical History / Comment(s): Patient does not know any history on her father. Mother Additional Family Medical History / Comment(s): Mother at age 83 from a perforated bowel with fistula to the bladder, COPD history. Brother(s) Additional Family Medical History / Comment(s): Patient has 1 brother that had part of his colon removed. Patient does not have any sisters. General Exam Limitations: no limitations Course Vital Signs 08/07/19 08/07/19 08/07/19 19:15 21:19 22:53 Temperature 98.1 F Pulse Rate 95 100 100 Respiratory 20 18 18 Rate Blood Pressure 100/74 126/84 120/80 O2 Sat by Pulse 95 92 L 100 Oximetry Medical Decision Making - Lab Data Result diagrams: 08/07/19 20:03 08/07/19 20:03 Lab Results 08/07/19 08/07/19 Range/Units 20:03 20:03 WBC 0.8 L* (3.8-10.6) k/uL RBC 3.41 L (3.80-5.40) m/uL Hgb 10.3 L (11.4-16.0) gm/dL Hct 32.3 L (34.0-46.0) % MCV 94.9 (80.0-100.0) fL MCH 30.3 (25.0-35.0) pg MCHC 31.9 (31.0-37.0) g/dL RDW 19.8 H (11.5-15.5) % Plt Count 68 L D (150-450) k/uL Neutrophils % (Manual) 53 % Band Neutrophils % 7 % Lymphocytes % (Manual) 29 % Monocytes % (Manual) 7 % Eosinophils % (Manual) 1 % Basophils % (Manual) 1 % Metamyelocytes % 2 % Myelocytes % 3 % Neutrophils # (Manual) 0.40 L* (1.3-7.7) k/uL Lymphocytes # (Manual) 0.23 L (1.0-4.8) k/uL Monocytes # (Manual) 0.06 (0-1.0) k/uL Eosinophils # (Manual) 0.01 (0-0.7) k/uL Basophils # (Manual) 0.01 (0-0.2) k/uL Metamyelocytes # (Man) 0.02 H (0) k/uL Myelocytes # (Manual) 0.02 H (0) k/uL Nucleated RBCs 83 H (0-0) /100 WBC Manual Slide Review Performed Polychromasia Present Poikilocytosis (manual Present Anisocytosis Slight Macrocytosis Slight Stomatocytes Present Sodium 141 (137-145) mmol/L Potassium 3.5 (3.5-5.1) mmol/L Chloride 99 (98-107) mmol/L Carbon Dioxide 29 (22-30) mmol/L Anion Gap 13 mmol/L BUN 41 H (7-17) mg/dL Creatinine 1.78 H (0.52-1.04) mg/dL Est GFR (CKD-EPI)AfAm 36 (>60 ml/min/1.73 sqM) Est GFR (CKD-EPI)NonAf 31 (>60 ml/min/1.73 sqM) Glucose 97 (74-99) mg/dL Calcium 18.1 H* (8.4-10.2) mg/dL Total Bilirubin 1.2 (0.2-1.3) mg/dL AST 177 H (14-36) U/L ALT 75 H (4-34) U/L Alkaline Phosphatase 203 H (38-126) U/L Creatine Kinase 38 (30-135) U/L Total Protein 7.6 (6.3-8.2) g/dL Albumin 4.2 (3.5-5.0) g/dL Lipase 3253 H (23-300) U/L Disposition Clinical Impression: Hypercalcemia, Pancreatitis Disposition: ADMITTED IP TO THIS HOSP Condition: Fair Referrals: Krishan Javed MD [Primary Care Provider] - 1-2 days Decision Time: 23:10
[2019-08-07 20:42] LABS: Anisocytosis Slight; HCT 32.3 % (34.0-46.0); HGB 10.3 gm/dL (11.4-16.0); MCH 30.3 pg (25.0-35.0); MCHC 31.9 g/dL (31.0-37.0); MCV 94.9 fL (80.0-100.0); Macrocytosis Slight; Mean Platelet Volume 9.6; RBC 3.41 m/uL (3.80-5.40); RDW 19.8 % (11.5-15.5)
[2019-08-07 20:45] LABS: Calcium 18.1 mg/dL (8.4-10.2)
--- NOTE | 2019-08-07 21:10 | XR ---
EXAMINATION TYPE: XR chest 2V DATE OF EXAM: 08/07/2019 COMPARISON: 07/01/2018 HISTORY: Short of breath. Chest pain TECHNIQUE: 2 views FINDINGS: There is no heart failure. There is no pleural effusion. There is compression deformity and bone destruction involving thoracic and lumbar vertebra. This is seen at T9 and T8 and T5 and L1 and L2 vertebra. There is some apparent destructive changes in multiple bilateral ribs. There is pleural based mass left lower lobe consistent with myeloma involvement of left ribs. There is destructive ch anges in the left and right clavicle right scapula. There is no pleural effusion. There is normal hea rt size. IMPRESSION: Extensive osteolytic changes consistent with multiple myeloma is a significant change com pared to old chest x-ray. No heart failure seen. No evidence of bronchopneumonia.
[2019-08-07 21:35] LABS: Band Neutrophils % 7 %; Metamyelocytes % 2 %; Myelocytes % 3 %; Neutrophils % (M) 53 %; Nucleated Red Blood Cells 83 /100 WBC (0-0); Total Cells Counted 200
[2019-08-07 21:39] LABS: Platelet Count 68 k/uL (150-450); Poikilocytosis (M) Present; Polychromasia Present; Stomatocytes Present
[2019-08-07] MEDS ORDERED: SODIUM CHLORIDE 0.9% 250 ML with PAMIDRONATE 30 MG IV ONE ×2 (22:00)
--- NOTE | 2019-08-07 22:53 | US ---
EXAMINATION TYPE: US gallbladder DATE OF EXAM: 08/07/2019 COMPARISON: NONE CLINICAL HISTORY: pancreatitis. abd pain, cholecystectomy EXAM MEASUREMENTS: Liver Length: 16.5 cm Gallbladder Wall: Surgically absent CBD: 1.1 cm Right Kidney: 9.3 x 4.4 x 4.5 cm limited study due to bowel gas Pancreas: wnl Liver: intercostal views only appear wnl Gallbladder: Surgically absent Evidence for sonographic Reed's sign: yes CBD: dilated Right Kidney: wnl IMPRESSION: Cholecystectomy. No dilated intrahepatic ducts. No focal liver defect.
[2019-08-07] MEDS ORDERED: NALOXONE 0.4 MG/ML 1 ML VIAL IV PRN (23:05)
[2019-08-07] MEDS ORDERED: ACETAMINOPHEN TAB 325 MG TAB PO PRN (23:05)
[2019-08-08] MEDS: SODIUM CHLORIDE 0.9% 1,000 ML IV SCH ×3 (00:10→16:20)
[2019-08-08] MEDS: HYDROmorphone 0.5 MG/0.5 ML SYRINGE IVP PRN ×6 (04:41→23:31)
[2019-08-08] MEDS ORDERED: POLYETHYLENE GLYCOL 3350 17 GM POWD.PACK PO PRN (09:14)
[2019-08-08] MEDS ORDERED: METHOCARBAMOL 750 MG TAB PO PRN (09:14)
[2019-08-08] MEDS ORDERED: POTASSIUM CHLORIDE ER 20 MEQ TAB.ER PO SCH (09:30)
[2019-08-08 09:43] LABS: Albumin 3.2 g/dL (3.5-5.0); Potassium 4.2 mmol/L (3.5-5.1); Total Bilirubin 0.9 mg/dL (0.2-1.3); Total Protein 5.9 g/dL (6.3-8.2)
[2019-08-08] MEDS ORDERED: FUROSEMIDE 10 MG/ML 4 ML VIAL IV SCH (09:45)
[2019-08-08] MEDS ORDERED: SODIUM CHLORIDE 0.9% 250 ML with PAMIDRONATE 60 MG IV ONE ×2 (10:00)
[2019-08-08 10:01] LABS: Anisocytosis Moderate; HCT 25.5 % (34.0-46.0); Hypochromasia Moderate; MCH 31.5 pg (25.0-35.0); MCHC 32.1 g/dL (31.0-37.0); MCV 98.3 fL (80.0-100.0); Macrocytosis Slight; Mean Platelet Volume 10.2; Poikilocytosis Slight
[2019-08-08 10:05] LABS: HGB 8.2 gm/dL (11.4-16.0); Platelet Count 52 k/uL (150-450)
[2019-08-08 10:11] LABS: Calcium 15.8 mg/dL (8.4-10.2)
--- NOTE | 2019-08-08 10:32 | P.NPCON ---
History of Present Illness - Reason for Consult acute renal failure - History of Present Illness Reason for consultation: Acute kidney injury and hypercalcemia History of present illness: Patient is a 58-year-old female seen in renal consultation for acute kidney injury and hypercalcemia. Patient denies any prior history of kidney disease. Her baseline creatinine is near 1. It is up to 1.87 today. Patient presented to the hospital due to 1 week duration of nausea and vomiting. Oral intake has been poor. She also admits to loose bowel movements. Denies chest pain or shortness of breath. Patient has history of breast cancer with bone metastasis. Her calcium level was 18.1 on admission and she's currently receiving IV fluids. She also received a dose of pamidronate. Calcium level this morning is 15.8. She has been voiding. No hematuria or dysuria. Denies use of nonsteroidals. Lasix is also been ordered. Hemodynamically stable. Patient states she's been off chemotherapy for about 15 days now. Vital signs are stable. General: The patient appeared well nourished and normally developed. HEENT: Head exam is unremarkable. Neck is without jugular venous distension. LUNGS: Lungs are clear to auscultation and percussion. Breath sounds decreased. HEART: Rate and Rhythm are regular. First and second heart sounds normal. No murmurs, rubs or gallops. ABDOMEN: Abdominal exam reveals normal bowel sounds. Non-tender and non- distended. No evidence of peritonitis. EXTREMITITES: No clubbing, cyanosis, or edema. Past Medical History Past Medical History: Atrial Fibrillation, Cancer, Fibromyalgia, GERD/Reflux, Thyroid Disorder Additional Past Medical History / Comment(s): breast cancer status post lumpectomy in 2010 with recurrence of invasive ductal carcinoma stage III grade IIIa with lumpectomy July 2013 with bone metastasis and multiple pathologic compression fractures. Status post cervical fusion, right femur nail and titanium joaquín all positive for cancer in December 2018, kyphoplasty L3 followed by kyphoplasty T12, L1, L5-S1 with radiofrequency ablation April 2019, history of thyroid cancer status post lobectomy and radiation therapy, chronic atrial fibrillation status post ablation on Xarelto, hypothyroidism, chronic pain syndrome, gastroesophageal reflux disease, generalized anxiety disorder. History of Any Multi-Drug Resistant Organisms: None Reported Past Surgical History: Ablation, Back Surgery, Cholecystectomy, Hysterectomy, Orthopedic Surgery Additional Past Surgical History / Comment(s): lumpectomy left breast x3, lobectomy thyroid, c5 c6 c7 fusion, bone marrow biopsy, bar/nail in right thigh and plate in right arm, ablation on heart 2012, gallstone removed from bile duct, left breast re-incision for clear margins in 2013,port plcement, 2015 had port removed, kyphoplasty on back x3 and radiofrequncy ablation to back, Past Anesthesia/Blood Transfusion Reactions: Previous Problems w/ Anesthesia Additional Past Anesthesia/Blood Transfusion Reaction / Comment(s): Hard time waking up and hypothermia Past Psychological History: Depression Additional Psychological History / Comment(s): Patient lives in ranch style home with . Patient walks with walker. Smoking Status: Never smoker Past Alcohol Use History: None Reported Additional Past Alcohol Use History / Comment(s): Patient is a lifelong nonsmoker, or illicit drug use. Used to smoke marijuana but hasnt for the last year. Past Drug Use History: None Reported - Past Family History Son(s) History Unknown: Yes Additional Family Medical History / Comment(s): Small nodule on thyroid, no other history Father Family Medical History: No Reported History Additional Family Medical History / Comment(s): Patient does not know any history on her father. Mother Family Medical History: COPD Additional Family Medical History / Comment(s): Mother at age 83 from a perforated bowel with fistula to the bladder, COPD history. Brother(s) Additional Family Medical History / Comment(s): Patient has 1 brother that had part of his colon removed. Patient does not have any sisters. Medications and Allergies Home Medications Medication Instructions Recorded Confirmed Type Levothyroxine Sodium [Synthroid] 175 mcg PO DAILY@0500 09/15/17 08/07/19 History Loratadine 10 mg PO DAILY PRN 09/15/17 08/07/19 History Acetaminophen Tab [Tylenol] 1,000 mg PO Q8H 06/15/19 08/07/19 History HYDROmorphone HCL 2 mg PO Q6H PRN 06/15/19 08/07/19 History Methocarbamol [Robaxin] 1,500 mg PO Q6H PRN 06/15/19 08/07/19 History Metoprolol Succinate (ER) [Toprol 25 mg PO DAILY 06/15/19 08/07/19 History XL] Metoprolol Succinate (ER) [Toprol 50 mg PO HS 06/15/19 08/07/19 History XL] Polyethylene Glycol 3350 [Miralax] 17 gm PO DAILY 06/15/19 08/07/19 History Potassium Chloride [Klor-Con 20] 20 meq PO DAILY 06/15/19 08/07/19 History Rivaroxaban [Xarelto] 20 mg PO W/SUPPER 06/15/19 08/07/19 History Sennosides [Senna] 8.6 mg PO BID 06/15/19 08/07/19 History oxyCODONE HCL [Roxicodone] 10 mg PO Q4H PRN 06/15/19 08/07/19 History Docusate [Colace] 100 mg PO DAILY PRN 08/07/19 08/07/19 History LORazepam [Ativan] 0.5 mg PO TID PRN 08/07/19 08/07/19 History Omeprazole 20 mg PO DAILY 08/07/19 08/07/19 History Palbociclib [Ibrance] 100 mg PO DIRECTED 08/07/19 08/07/19 History oxyCODONE HCL [OxyCONTIN] 30 mg PO Q12H 08/07/19 08/07/19 History Allergies Allergy/AdvReac Type Severity Reaction Status Date / Time gabapentin Allergy Rash/Hives Verified 08/07/19 21:58 vancomycin Allergy Rash/Hives Verified 08/07/19 21:58 morphine [From MS Contin] AdvReac Nausea & Verified 08/07/19 21:58 Vomiting & Diarrhea Physical Exam Vitals: Vital Signs Temp Pulse Pulse Resp BP BP Pulse Ox 08/08/19 04:31 98.2 F 94 15 118/73 98 08/08/19 00:51 98.5 F 103 H 20 123/88 93 L 08/07/19 22:53 100 18 120/80 100 08/07/19 21:19 100 18 126/84 92 L 08/07/19 19:15 98.1 F 95 20 100/74 95 Intake and Output 08/07/19 08/08/19 08/08/19 22:59 06:59 14:59 Intake Total 800 Output Total 250 Balance 800 -250 Intake: Intake, IV Titration 800 Amount Sodium Chloride 0.9% 1, 550 000 ml @ 110 mls/hr IV . Q9H6M [facility] Rx#:[id number] Sodium Chloride 0.9% 250 250 ml @ 83 mls/hr IV .Q3H1M ONE with Pamidronate 30 mg Rx#:[id number] Output: Urine 250 Other: Voiding Method Urinal Urinal Weight 73.482 kg 72.5 kg Results - Lab Results Most recent lab results Calcium 15.8 mg/dL (8.4-10.2) H* 08/08/19 09:02 08/08/19 09:02 08/08/19 09:02 Assessment and Plan Plan: Assessment: 1. Acute kidney injury secondary to ATN secondary to hypercalcemia and intravascular volume depletion from vomiting. Creatinine 1.87 today. Baseline near 1. 2. Hypercalcemia secondary to bone metastasis and volume contraction. 3. Breast cancer with bone metastasis. 4. Pancytopenia secondary to chemotherapy. Plan: Maintain normal saline at 100 mL an hour. Discontinue Lasix. Discontinue potassium supplementation. Status post pamidronate on August 07. Start calcitonin 300 units IM twice daily. Check PTH and vitamin D. Repeat electrolytes in the morning. Thank you for the consultation. I will continue to follow the patient with you during her hospital stay.
[2019-08-08] MEDS: DOCUSATE 100 MG CAP PO PRN (10:35)
[2019-08-08] MEDS: METOPROLOL SUCCINATE (ER) 25 MG TAB.ER.24H PO SCH (10:35)
[2019-08-08] MEDS: oxyCODONE ER 15 MG TAB.ER.12H PO SCH ×2 (10:35→21:55)
[2019-08-08] MEDS: PANTOPRAZOLE 40 MG TABLET PO SCH (10:36)
[2019-08-08] MEDS: ONDANSETRON 4 MG/2 ML VIAL IVP PRN (11:25)
--- NOTE | 2019-08-08 12:45 | P.HPIM ---
History of Present Illness H&P Date: 08/08/19 This is a 58-year-old female patient of Micheal Nielsen NP with past medical history of breast cancer status post lumpectomy in 2010 with recurrence of invasive ductal carcinoma stage III grade IIIa with lumpectomy July 2013 with bone metastasis and multiple pathologic compression fractures. Status post cervical fusion, right femur nail and titanium joaquín all positive for cancer in December 2018, kyphoplasty L3 followed by kyphoplasty T12, L1, L5-S1 with radiofrequency ablation April 2019, history of thyroid cancer status post lobectomy and radiation therapy, chronic atrial fibrillation status post ablation on Xarelto, hypothyroidism, chronic pain syndrome, gastroesophageal reflux disease, generalized anxiety disorder. Patient's last chemotherapy was performed on 05/13/2019. Last radiation to the cervical, right femur and lumbar areas completed on 02/20/2019. PET scan on 06/06/2019 revealed osseous metastatic disease. Patient has [facility] home care in place. Patient states that she was at [facility] from May 21 through the June 02 at which time she underwent lumbar spine procedures. She states she also has a left scapular fracture and rib fractures. Old fractures are pathologic related to cancer with metastatic disease. She had previously received all her care at [facility] and now switch to Dr. Ordonez. She was last admitted from her facility June 16 to June 19 secondary to hypercalcemia secondary to metastatic disease to the bone, she was seen by Dr. Mccormick that time, she received IM calcitonin, and Zometa 4 mg IV, calcium on the last admission was 14.9, on discharge She'll level was 7.2. Patient came into [facility] emergency center for evaluation. secondary to abdominal pain of 1 week, nausea vomiting of one week, she is was found to have a calcium level of 18, creatinine is also worsening, currently at 1.78 on admission, discharge creatinine was 0.55, June 20. Lipase was elevated at 3253, liver function tests elevated including alkaline Lilly, 203. She has known history of cholecystectomy with sphincterotomy in the past. She does have chronic pain, we are going to continue on the OxyContin 20 mg every 12 hours, IV Dilaudid, consult were made with Dr. Velasquez gastrology for pancreatitis, consult with Dr. Corbett, and Dr. Mccormick for severe critical hypercalcemia. We'll going to add additional infusion of IV pamidronate, for a total of 90 mg 1 dose today. IV hydration, IV Lasix 40 mg twice a day, Review of Systems Constitutional: Reports anorexia, Reports chronic pain, Reports lethargy, Reports malaise, Reports poor appetite, Reports weight gain Ears, nose, mouth and throat: Reports as per HPI, Denies ant. neck pain, Denies bleeding gums, Denies dental pain, Denies dysphagia, Denies epistaxis, Denies headache, Denies hoarseness, Denies mouth pain, Denies nasal congestion, Denies nasal discharge, Denies neck fullness/pressure, Denies neck lump, Denies nose pain, Denies odynophagia, Denies post-nasal drip, Denies sinus pain, Denies sinus pressure, Denies swelling in mouth, Denies swelling in throat, Denies sore throat, Denies vertigo, Denies voice changes Cardiovascular: Reports as per HPI, Denies chest pain, Denies claudication, Denies decreased exercise tolerance, Denies dyspnea on exertion, Denies edema, Denies high blood pressure, Denies irregular heart beat, Denies leg edema, Denies lightheadedness, Denies orthopnea, Denies palpitations, Denies paroxysmal nocturnal dyspnea, Denies phlebitis, Denies rapid heart beat, Denies shortness of breath, Denies syncope Respiratory: Reports as per HPI, Denies congestion, Denies cough, Denies cough with sputum, Denies dyspnea, Denies excessive sputum, Denies hemoptysis, Denies home oxygen, Denies pain, Denies pain on inspiration, Denies pleurisy, Denies respiratory infections, Denies sleep apnea, Denies snoring, Denies wheezing Gastrointestinal: Reports as per HPI, Reports abdominal pain, Reports dyspepsia, Reports early satiety, Reports loss of appetite, Reports nausea, Reports vomiting Genitourinary: Reports as per HPI Menstruation: Reports as per HPI, Denies amenorrhea, Denies amenorrhea on BC, Denies currently menstrual, Denies cycle < 21 days, Denies cycle > 35 days, Denies cycle variable, Denies menses 1-7 days, Denies menses 8 or > days, Denies menses variable, Denies period heavy, Denies period light, Denies period normal, Denies period spotting, Denies post hysterectomy, Denies postmenopausal, Denies premenarcheal Musculoskeletal: Reports as per HPI, Reports gait dysfunction, Reports limitation of motion, Denies arm numbness/tingling, Denies atrophy, Denies fractures, Denies frequent falls, Denies hot joints, Denies leg numbness/tingling, Denies loss of height, Denies low back pain, Denies morning stiffness, Denies muscle cramps, Denies muscle weakness, Denies myalgias, Denies neck pain, Denies neck stiffness, Denies prior amputations, Denies redness of joints, Denies shooting arm pain, Denies shooting leg pain Integumentary: Reports as per HPI Neurological: Reports as per HPI, Reports memory loss Psychiatric: Reports as per HPI, Denies anhedonia, Denies anxiety, Denies anxiety attacks, Denies change in appetite, Denies change in libido, Denies change in sleep habits, Denies confusion, Denies depression, Denies difficulty concentrating, Denies disorientation, Denies hallucinations, Denies hopelessness, Denies hypersomnia, Denies insomnia, Denies irritability, Denies memory loss, Denies mood swings, Denies paranoia, Denies sadness/tearfulness, Denies sleep disturbances, Denies suicidal ideation Endocrine: Reports as per HPI Hematologic/Lymphatic: Reports as per HPI Allergic/Immunologic: Reports as per HPI, Denies allergic rhinitis, Denies anaphylaxis, Denies angioedema, Denies gluten intolerance, Denies persistent infections, Denies seasonal allergies, Denies urticaria, Denies wheezing Past Medical History Past Medical History: Atrial Fibrillation, Cancer, Fibromyalgia, GERD/Reflux, Thyroid Disorder Additional Past Medical History / Comment(s): breast cancer status post lumpectomy in 2010 with recurrence of invasive ductal carcinoma stage III grade IIIa with lumpectomy July 2013 with bone metastasis and multiple pathologic compression fractures. Status post cervical fusion, right femur nail and titanium joaquín all positive for cancer in December 2018, kyphoplasty L3 followed by kyphoplasty T12, L1, L5-S1 with radiofrequency ablation April 2019, history of thyroid cancer status post lobectomy and radiation therapy, chronic atrial fibrillation status post ablation on Xarelto, hypothyroidism, chronic pain syndrome, gastroesophageal reflux disease, generalized anxiety disorder. History of Any Multi-Drug Resistant Organisms: None Reported Past Surgical History: Ablation, Back Surgery, Cholecystectomy, Hysterectomy, Orthopedic Surgery Additional Past Surgical History / Comment(s): lumpectomy left breast x3, lobectomy thyroid, c5 c6 c7 fusion, bone marrow biopsy, bar/nail in right thigh and plate in right arm, ablation on heart 2012, gallstone removed from bile duct, left breast re-incision for clear margins in 2013,port plcement, 2015 had port removed, kyphoplasty on back x3 and radiofrequncy ablation to back, Past Anesthesia/Blood Transfusion Reactions: Previous Problems w/ Anesthesia Additional Past Anesthesia/Blood Transfusion Reaction / Comment(s): Hard time waking up and hypothermia Past Psychological History: Depression Additional Psychological History / Comment(s): Patient lives in ranch style home with . Patient walks with walker. Smoking Status: Never smoker Past Alcohol Use History: None Reported Additional Past Alcohol Use History / Comment(s): Patient is a lifelong nonsmoker, or illicit drug use. Used to smoke marijuana but hasnt for the last year. Past Drug Use History: None Reported - Past Family History Son(s) History Unknown: Yes Additional Family Medical History / Comment(s): Small nodule on thyroid, no other history Father Family Medical History: No Reported History Additional Family Medical History / Comment(s): Patient does not know any history on her father. Mother Family Medical History: COPD Additional Family Medical History / Comment(s): Mother at age 83 from a perforated bowel with fistula to the bladder, COPD history. Brother(s) Additional Family Medical History / Comment(s): Patient has 1 brother that had part of his colon removed. Patient does not have any sisters. Medications and Allergies Home Medications Medication Instructions Recorded Confirmed Type Levothyroxine Sodium [Synthroid] 175 mcg PO DAILY@0500 09/15/17 08/07/19 History Loratadine 10 mg PO DAILY PRN 09/15/17 08/07/19 History Acetaminophen Tab [Tylenol] 1,000 mg PO Q8H 06/15/19 08/07/19 History HYDROmorphone HCL 2 mg PO Q6H PRN 06/15/19 08/07/19 History Methocarbamol [Robaxin] 1,500 mg PO Q6H PRN 06/15/19 08/07/19 History Metoprolol Succinate (ER) [Toprol 25 mg PO DAILY 06/15/19 08/07/19 History XL] Metoprolol Succinate (ER) [Toprol 50 mg PO HS 06/15/19 08/07/19 History XL] Polyethylene Glycol 3350 [Miralax] 17 gm PO DAILY 06/15/19 08/07/19 History Potassium Chloride [Klor-Con 20] 20 meq PO DAILY 06/15/19 08/07/19 History Rivaroxaban [Xarelto] 20 mg PO W/SUPPER 06/15/19 08/07/19 History Sennosides [Senna] 8.6 mg PO BID 06/15/19 08/07/19 History oxyCODONE HCL [Roxicodone] 10 mg PO Q4H PRN 06/15/19 08/07/19 History Docusate [Colace] 100 mg PO DAILY PRN 08/07/19 08/07/19 History LORazepam [Ativan] 0.5 mg PO TID PRN 08/07/19 08/07/19 History Omeprazole 20 mg PO DAILY 08/07/19 08/07/19 History Palbociclib [Ibrance] 100 mg PO DIRECTED 08/07/19 08/07/19 History oxyCODONE HCL [OxyCONTIN] 30 mg PO Q12H 08/07/19 08/07/19 History Allergies Allergy/AdvReac Type Severity Reaction Status Date / Time gabapentin Allergy Rash/Hives Verified 08/07/19 21:58 vancomycin Allergy Rash/Hives Verified 08/07/19 21:58 morphine [From MS Contin] AdvReac Nausea & Verified 08/07/19 21:58 Vomiting & Diarrhea Physical Exam Vitals: Vital Signs Temp Pulse Pulse Resp BP BP Pulse Ox 08/08/19 11:23 97.5 F L 107 H 16 137/74 98 08/08/19 04:31 98.2 F 94 15 118/73 98 08/08/19 00:51 98.5 F 103 H 20 123/88 93 L 08/07/19 22:53 100 18 120/80 100 08/07/19 21:19 100 18 126/84 92 L 08/07/19 19:15 98.1 F 95 20 100/74 95 Intake and Output 08/07/19 08/08/19 08/08/19 22:59 06:59 14:59 Intake Total 800 Output Total 250 Balance 800 -250 Intake: Intake, IV Titration 800 Amount Sodium Chloride 0.9% 1, 550 000 ml @ 110 mls/hr IV . Q9H6M [facility] Rx#:[id number] Sodium Chloride 0.9% 250 250 ml @ 83 mls/hr IV .Q3H1M ONE with Pamidronate 30 mg Rx#:[id number] Output: Urine 250 Other: Voiding Method Urinal Urinal Weight 73.482 kg 72.5 kg 72.5 kg - Constitutional General appearance: cooperative, no acute distress - EENT Eyes: anicteric sclerae, dentition normal, normal appearance ENT: hearing grossly normal, normal oropharynx - Neck Neck: normal ROM - Respiratory Respiratory: bilateral: CTA, negative: diminished, dullness, rales, rhonchi - Cardiovascular Rhythm: regular Heart sounds: normal: S1, S2 Abnormal Heart Sounds: no systolic murmur, no diastolic murmur, no rub, no S3 Gallop, no S4 Gallop, no click, no other - Gastrointestinal General gastrointestinal: normal bowel sounds, soft - Integumentary Integumentary: normal - Neurologic Neurologic: CNII-XII intact - Musculoskeletal Musculoskeletal: gait normal, strength equal bilaterally - Psychiatric Psychiatric: A&O x's 3, appropriate affect, intact judgment & insight Results CBC & Chem 7: 08/08/19 09:02 08/08/19 09:02 Labs: Abnormal Lab Results - Last 24 Hours (Table) 08/07/19 08/07/19 08/08/19 Range/Units 20:03 20:03 09:02 WBC 0.8 L* (3.8-10.6) k/uL RBC 3.41 L 2.60 L (3.80-5.40) m/uL Hgb 10.3 L 8.2 L D (11.4-16.0) gm/dL Hct 32.3 L 25.5 L (34.0-46.0) % RDW 19.8 H 20.0 H (11.5-15.5) % Plt Count 68 L D 52 L (150-450) k/uL Neutrophils # (Manual) 0.40 L* (1.3-7.7) k/uL Lymphocytes # (Manual) 0.23 L (1.0-4.8) k/uL Metamyelocytes # (Man) 0.02 H (0) k/uL Myelocytes # (Manual) 0.02 H (0) k/uL Nucleated RBCs 83 H (0-0) /100 WBC BUN 41 H (7-17) mg/dL Creatinine 1.78 H (0.52-1.04) mg/dL Calcium 18.1 H* (8.4-10.2) mg/dL AST 177 H (14-36) U/L ALT 75 H (4-34) U/L Alkaline Phosphatase 203 H (38-126) U/L Total Protein (6.3-8.2) g/dL Albumin (3.5-5.0) g/dL Lipase 3253 H (23-300) U/L 08/08/19 Range/Units 09:02 WBC (3.8-10.6) k/uL RBC (3.80-5.40) m/uL Hgb (11.4-16.0) gm/dL Hct (34.0-46.0) % RDW (11.5-15.5) % Plt Count (150-450) k/uL Neutrophils # (Manual) (1.3-7.7) k/uL Lymphocytes # (Manual) (1.0-4.8) k/uL Metamyelocytes # (Man) (0) k/uL Myelocytes # (Manual) (0) k/uL Nucleated RBCs (0-0) /100 WBC BUN 48 H (7-17) mg/dL Creatinine 1.87 H (0.52-1.04) mg/dL Calcium 15.8 H* (8.4-10.2) mg/dL AST 143 H (14-36) U/L ALT 68 H (4-34) U/L Alkaline Phosphatase 136 H (38-126) U/L Total Protein 5.9 L (6.3-8.2) g/dL Albumin 3.2 L (3.5-5.0) g/dL Lipase 1319 H (23-300) U/L Laboratory Results WBC 5.1 k/uL (3.8-10.6) 08/08/19 09:02 RBC 2.60 m/uL (3.80-5.40) L 08/08/19 09:02 Hgb 8.2 gm/dL (11.4-16.0) L D 08/08/19 09:02 Hct 25.5 % (34.0-46.0) L 08/08/19 09:02 MCV 98.3 fL (80.0-100.0) 08/08/19 09:02 MCH 31.5 pg (25.0-35.0) 08/08/19 09:02 MCHC 32.1 g/dL (31.0-37.0) 08/08/19 09:02 RDW 20.0 % (11.5-15.5) H 08/08/19 09:02 Plt Count 52 k/uL (150-450) L 08/08/19 09:02 Neutrophils % (Manual) 53 % 08/07/19 20:03 Band Neutrophils % 7 % 08/07/19 20:03 Lymphocytes % (Manual) 29 % 08/07/19 20:03 Monocytes % (Manual) 7 % 08/07/19 20:03 Eosinophils % (Manual) 1 % 08/07/19 20:03 Basophils % (Manual) 1 % 08/07/19 20:03 Metamyelocytes % 2 % 08/07/19 20:03 Myelocytes % 3 % 08/07/19 20:03 Neutrophils # (Manual) 0.40 k/uL (1.3-7.7) L* 08/07/19 20:03 Lymphocytes # (Manual) 0.23 k/uL (1.0-4.8) L 08/07/19 20:03 Monocytes # (Manual) 0.06 k/uL (0-1.0) 08/07/19 20:03 Eosinophils # (Manual) 0.01 k/uL (0-0.7) 08/07/19 20:03 Basophils # (Manual) 0.01 k/uL (0-0.2) 08/07/19 20:03 Metamyelocytes # (Man) 0.02 k/uL (0) H 08/07/19 20:03 Myelocytes # (Manual) 0.02 k/uL (0) H 08/07/19 20:03 Nucleated RBCs 83 /100 WBC (0-0) H 08/07/19 20:03 Manual Slide Review Performed 08/07/19 20:03 Polychromasia Present 08/07/19 20:03 Hypochromasia Moderate 08/08/19 09:02 Poikilocytosis Slight 08/08/19 09:02 Poikilocytosis (manual Present 08/07/19 20:03 Anisocytosis Moderate 08/08/19 09:02 Macrocytosis Slight 08/08/19 09:02 Stomatocytes Present 08/07/19 20:03 Sodium 139 mmol/L (137-145) 08/08/19 09:02 Potassium 4.2 mmol/L (3.5-5.1) 08/08/19 09:02 Chloride 106 mmol/L (98-107) 08/08/19 09:02 Carbon Dioxide 27 mmol/L (22-30) 08/08/19 09:02 Anion Gap 6 mmol/L 08/08/19 09:02 BUN 48 mg/dL (7-17) H 08/08/19 09:02 Creatinine 1.87 mg/dL (0.52-1.04) H 08/08/19 09:02 Est GFR (CKD-EPI)AfAm 34 (>60 ml/min/1.73 sqM) 08/08/19 09:02 Est GFR (CKD-EPI)NonAf 30 (>60 ml/min/1.73 sqM) 08/08/19 09:02 Glucose 80 mg/dL (74-99) 08/08/19 09:02 Calcium 15.8 mg/dL (8.4-10.2) H* 08/08/19 09:02 Total Bilirubin 0.9 mg/dL (0.2-1.3) 08/08/19 09:02 AST 143 U/L (14-36) H 08/08/19 09:02 ALT 68 U/L (4-34) H 08/08/19 09:02 Alkaline Phosphatase 136 U/L (38-126) H 08/08/19 09:02 Creatine Kinase 38 U/L (30-135) 08/07/19 20:03 Total Protein 5.9 g/dL (6.3-8.2) L 08/08/19 09:02 Albumin 3.2 g/dL (3.5-5.0) L 08/08/19 09:02 Lipase 1319 U/L (23-300) H 08/08/19 09:02 Thrombosis Risk Factor Assmnt - DVT/VTE Prophylaxis DVT/VTE Prophylaxis: Pharmacologic Prophylaxis ordered - Choose All That Apply Each Factor Represents 1 point: Age 41-60 years, Obesity (BMI >25) Other Risk Factors: No Each Risk Factor Represents 2 Points: Malignancy Thrombosis Risk Factor Assessment Total Risk Factor Score: 4 Thrombosis Risk Factor Assessment Level: Moderate Risk Assessment and Plan Plan: 1. Critical Hypercalcemia secondary to malignancy with metastatic disease to the bone. Nephrology consult appreciated. IV fluids decreased to 100 mL per hour, pamidronate IV, 19 mg 1 dose, discontinue vitamin D. Electrophoresis studies negative. Appropriately suppressed PTH from previous workup, consult with Dr. Mccormick, Dr. Ordonez. Patient is not on any calcium smoke supplementation at home, 2. Acute pancreatitis, most likely secondary to hypercalcemia, prior history of cholecystectomy with sphincterotomy, obtain abdominal ultrasound, which is negative for common bile duct outpatient, nothing by mouth to clear liquid diet, antiemetics, 3. Pancytopenia with Breast cancer with bone metastasis status post multiple surgical interventions. Oncology consult. 4. Paroxysmal atrial fibrillation. Continue Toprol-XL 25 mg in the morning and 50 mg at bedtime, Xarelto 20 mg daily. 5. Acute renal failure with underlying CTk stage I, secondary to dehydration, ATN, IV fluids for hydration, patient is on IV Lasix as well as IV fluids for severe hypercalcemia, IV Lasix and admitted to be discontinued once calcium is stabilized. 6. Hypothyroidism. Continue levothyroxine 175 g daily. 5. Gastroesophageal reflux disease and GI prophylaxis. Continue Protonix. 7. Chronic pain syndrome. Continue Voltaren gel, Robaxin 750 mg every 6 hours as needed, OxyContin 30 mg extended release every 12 hours, oxycodone 10 mg every 4 hours as needed. 8 Transaminitis, acute, possibly possibly related to COATES, alkaline phosphatase elevations also noted most likely secondary to bone metastases, doubt obstructive etiology, cant r/o other itioloty include liver med 9 History of thyroid cancer. 10. Generalized anxiety disorder. Continue Xanax or 0.5 mg 4 times daily as needed. DVT prophylaxis on chronic Xarelto dose GI prophylaxis Protonix Discharge plan: Return home with [facility]
[2019-08-08 13:59] LABS: Band Neutrophils % 8 %; Metamyelocytes % 5 %; Myelocytes % 1 %; Neutrophils % (M) 59 %; Nucleated Red Blood Cells 76 /100 WBC (0-0); Total Cells Counted 200
[2019-08-08 14:00] LABS: Basophils # (M) 0.06 k/uL (0-0.2); Eosinophils # (M) 0.03 k/uL (0-0.7); Lymphocytes # (M) 0.46 k/uL (1.0-4.8); Metamyelocytes # (M) 0.15 k/uL (0); Monocytes # (M) 0.29 k/uL (0-1.0); Myelocytes # (M) 0.03 k/uL (0); WBC 2.9 k/uL (3.8-10.6)
[2019-08-08 14:09] LABS: Polychromasia Present
--- NOTE | 2019-08-08 14:14 | CONS ---
CONSULTATION DATE OF SERVICE: August 08, 2019 REASON FOR CONSULTATION: Acute pancreatitis. HISTORY OF PRESENT ILLNESS: The patient is a 58-year-old pleasant white female who was diagnosed with breast cancer with bone metastasis in December of this year. The patient is undergoing chemotherapy and follows with Dr. Ordonez. Her last chemotherapy was two weeks ago. She started complaining of severe abdominal pain mostly in the epigastric area associated with nausea, vomiting, and severe back pain from bone metastasis. She came into the emergency room and was noted to have elevated lipase consistent with acute pancreatitis. She was also noted to have hypercalcemia with a calcium level of 18. The patient never had prior history of pancreatitis. She has a remote history of cholecystectomy. This morning she still continues to have more back pain and some abdominal pain. She feels very thirsty and hungry. PAST MEDICAL HISTORY: Her past medical history is significant for breast cancer with bone metastasis, history of atrial fibrillation, fibromyalgia, gastroesophageal reflux disease, hypothyroidism. PAST SURGICAL HISTORY: Status post lumpectomy in 2010 with recurrence in July of 2013 and bone metastasis diagnosed in December of 2018, history of back surgery, cardiac ablation, cholecystectomy, hysterectomy. MEDICATIONS: Medications at home include Synthroid, loratadine, Tylenol, hydromorphone, Robaxin, Toprol, MiraLAX, K-Crystal, Xarelto, Senna, Roxicodone, Colace, Ativan, omeprazole, Ibrance, and OxyContin. ALLERGIES: VANCOMYCIN, MORPHINE, GABAPENTIN. SOCIAL HISTORY: No smoking. No alcohol use. FAMILY HISTORY: Son has thyroid nodules. Father unremarkable. Mother at 83 from bowel perforation. REVIEW OF SYSTEMS: CARDIOPULMONARY: She denies any chest pain or shortness of breath. GENITOURINARY: No dysuria or hematuria. MUSCULOSKELETAL: Severe back pain and pain all over the body. NEUROLOGY: Unremarkable. PSYCHIATRIC: Unremarkable. ENT/VISION: Unremarkable. CONSTITUTIONAL: No recent weight loss. No fever, chills, night sweats. HEMATOLOGY: Unremarkable other than pancytopenia. PHYSICAL EXAMINATION: She appears somewhat uncomfortable from backache. VITAL SIGNS: Blood pressure 118/73, pulse rate 94, temperature 98.2. HEENT: Unremarkable. Conjunctivae pink. Sclerae anicteric. Oral cavity no lesions. NECK: No JVD or no lymph node enlargement. CHEST: Clear to auscultation. HEART: Regular rate and rhythm. ABDOMEN: Slightly tender in the epigastric area. There was mild diffuse tenderness all over the abdomen. EXTREMITIES: No pedal edema. SKIN: No rashes. NEUROLOGIC: She is alert and oriented x3. No focal deficits. LABORATORY DATA: Labs from today: WBC 0.8, hemoglobin 10.3, platelets 68,000, BUN 41, creatinine 1.78. Calcium level is 18. AST 177, ALT 75, alkaline phosphatase 203. Lipase is 3253. IMAGING: She did have ultrasound of the right upper quadrant done in the emergency room last night that showed evidence of cholecystectomy with no evidence of biliary ductal dilatation. Liver appeared normal. IMPRESSION: 1. This is a lady who presents with acute onset of severe epigastric pain associated with nausea, vomiting for the last 3-4 days' duration and noted to have elevated lipase consistent with acute pancreatitis. Most likely the pancreatitis is related to hypercalcemia. She never had pancreatitis in the past. Her calcium level was 18.1. She also is noted to have mild elevation of serum transaminases and has a remote history of gallbladder surgery several years ago. Ultrasound did not show any dilated biliary ducts. Possibility of a latent common bile duct stone cannot be entirely excluded, though unlikely. 2. Breast cancer with metastasis to the spine, undergoing chemotherapy and sees Dr. Ordonez. Last chemo was two weeks ago. 3. Pancytopenia secondary to recent chemotherapy. 4. Atrial fibrillation, on Xarelto. RECOMMENDATIONS: 1. Will start her on a clear liquid diet. 2. Repeat labs today. 3. Pain medications. 4. Aggressive control of hypercalcemia. 5. Repeat labs in the morning. Will follow with you closely. Thank you for this consultation. MMODL / IJN: [id number] /
[2019-08-08] MEDS: RIVAROXABAN 15 MG TAB PO SCH (17:11)
[2019-08-08] MEDS ORDERED: RIVAROXABAN 20 MG TAB PO SCH (17:30)
[2019-08-08] MEDS: METOPROLOL SUCCINATE (ER) 50 MG TAB.ER.24H PO SCH (22:00)
[2019-08-08] MEDS: CALCITONIN INJ 200 UNIT/ML (MDV) VIAL IM SCH (22:34)
[2019-08-09] MEDS: SODIUM CHLORIDE 0.9% 1,000 ML IV SCH ×3 (02:38→21:13)
[2019-08-09] MEDS: LEVOTHYROXINE 88 MCG TAB PO SCH (04:59)
[2019-08-09 05:22] LABS: Amorphous Sediment,Urine Occasional /hpf; Appearance,Urine Cloudy (Clear); Bacteria,Urine Rare /hpf; Bilirubin,Urine Negative (Negative); Blood,Urine Moderate (Negative); Color,Urine Light Yellow; Glucose,Urine (UA) Negative (Negative); Hyaline Casts,Urine 3 /lpf (0-2); Ketones,Urine Trace (Negative); Leukocyte Esterase,Urine Negative (Negative); Mucus,Urine Rare /hpf; Nitrite,Urine Negative (Negative); Protein,Urine 1+ (Negative); RBC,Urine 10 /hpf (0-5); Specific Gravity,Urine 1.011 (1.001-1.035); Squamous Epithelial Cell,Urine 1 /hpf (0-4); Urobilinogen,Urine <2.0 mg/dL (<2.0); WBC,Urine 2 /hpf (0-5)
[2019-08-09 08:04] LABS: Albumin 2.7 g/dL (3.5-5.0); Calcium 12.9 mg/dL (8.4-10.2); Magnesium 1.8 mg/dL (1.6-2.3); Potassium 3.8 mmol/L (3.5-5.1); Total Bilirubin 0.6 mg/dL (0.2-1.3); Total Protein 5.3 g/dL (6.3-8.2)
[2019-08-09 08:09] LABS: Anisocytosis Slight; HCT 21.6 % (34.0-46.0); HGB 7.1 gm/dL (11.4-16.0); Hypochromasia Moderate; MCH 32.1 pg (25.0-35.0); MCHC 32.7 g/dL (31.0-37.0); MCV 98.1 fL (80.0-100.0); Macrocytosis Slight; Mean Platelet Volume 9.7; Poikilocytosis Slight; RBC 2.21 m/uL (3.80-5.40)
[2019-08-09] MEDS: oxyCODONE ER 15 MG TAB.ER.12H PO SCH ×2 (08:10→21:15)
[2019-08-09] MEDS: DOCUSATE 100 MG CAP PO PRN (08:12)
[2019-08-09] MEDS: PANTOPRAZOLE 40 MG TABLET PO SCH (08:12)
[2019-08-09] MEDS: CALCITONIN INJ 200 UNIT/ML (MDV) VIAL IM SCH ×3 (08:12→21:28)
[2019-08-09 08:17] LABS: Platelet Count 44 k/uL (150-450)
[2019-08-09] MEDS: METOPROLOL SUCCINATE (ER) 25 MG TAB.ER.24H PO SCH (08:50)
--- NOTE | 2019-08-09 08:56 | P.PN ---
Subjective Progress Note Date: 08/09/19 This is a 58-year-old female patient of Micheal Nielsen NP with past medical history of breast cancer status post lumpectomy in 2010 with recurrence of invasive ductal carcinoma stage III grade IIIa with lumpectomy July 2013 with bone metastasis and multiple pathologic compression fractures. Status post cervical fusion, right femur nail and titanium joaquín all positive for cancer in December 2018, kyphoplasty L3 followed by kyphoplasty T12, L1, L5-S1 with radiofrequency ablation April 2019, history of thyroid cancer status post lobectomy and radiation therapy, chronic atrial fibrillation status post ablation on Xarelto, hypothyroidism, chronic pain syndrome, gastroesophageal reflux disease, generalized anxiety disorder. Patient's last chemotherapy was performed on 05/13/2019. Last radiation to the cervical, right femur and lumbar areas completed on 02/20/2019. PET scan on 06/06/2019 revealed osseous metastatic disease. Patient has [facility] care in place. Patient states that she was at [facility] from May 21 through the June 02 at which time she underwent lumbar spine procedures. She states she also has a left scapular fracture and rib fractures. Old fractures are pathologic related to cancer with metastatic disease. She had previously received all her care at [facility] and now switch to Dr. Ordonez. She was last admitted from her facility June 16 to June 19 secondary to hypercalcemia secondary to metastatic disease to the bone, she was seen by Dr. Mccormick that time, she received IM calcitonin, and Zometa 4 mg IV, calcium on the last admission was 14.9, on discharge She'll level was 7.2. Patient came into [facility] emergency center for evaluation. secondary to abdominal pain of 1 week, nausea vomiting of one week, she is was found to have a calcium level of 18, creatinine is also worsening, currently at 1.78 on admission, discharge creatinine was 0.55, June 20. Lipase was elevated at 3253, liver function tests elevated including alkaline Lilly, 203. She has known history of cholecystectomy with sphincterotomy in the past. She does have chronic pain, we are going to continue on the OxyContin 20 mg every 12 hours, IV Dilaudid, consult were made with Dr. Velasquez gastrology for pancreatitis, consult with Dr. Corbett, and Dr. Mccormick for severe critical hypercalcemia. We'll going to add additional infusion of IV pamidronate, for a total of 90 mg 1 dose today. IV hydration, IV Lasix 40 mg twice a day, 08/09: Per nursing staff patient had increased confusion and competitive through the night. Patient continues to have confusion unable to answer questions appropriately. At times she will make sense and then rambles on and jumps subject while interviewing. Patient is reluctant to go to subacute rehab facility she is afraid this will mess with her rehab days for the week. Patient is complaining of generalized pain that has increased. Patient is requesting to go home and receive therapy at home. Discussed with patient that she is not able to walk or hold cups that she would not be able to stay home to receive therapy. Patient requires more intense therapy. Review of systems Constitutional: Reports anorexia, Reports chronic pain, Reports lethargy, Reports malaise, Reports poor appetite, Reports weight gain Ears, nose, mouth and throat: Reports as per HPI, Denies ant. neck pain, Denies bleeding gums, Denies dental pain, Denies dysphagia, Denies epistaxis, Denies headache, Denies hoarseness, Denies mouth pain, Denies nasal congestion, Denies nasal discharge, Denies neck fullness/pressure, Denies neck lump, Denies nose pain, Denies odynophagia, Denies post-nasal drip, Denies sinus pain, Denies sinus pressure, Denies swelling in mouth, Denies swelling in throat, Denies sore throat, Denies vertigo, Denies voice changes Cardiovascular: Reports as per HPI, Denies chest pain, Denies claudication, Denies decreased exercise tolerance, Denies dyspnea on exertion, Denies edema, Denies high blood pressure, Denies irregular heart beat, Denies leg edema, Denies lightheadedness, Denies orthopnea, Denies palpitations, Denies paroxysmal nocturnal dyspnea, Denies phlebitis, Denies rapid heart beat, Denies shortness of breath, Denies syncope Respiratory: Reports as per HPI, Denies congestion, Denies cough, Denies cough with sputum, Denies dyspnea, Denies excessive sputum, Denies hemoptysis, Denies home oxygen, Denies pain, Denies pain on inspiration, Denies pleurisy, Denies respiratory infections, Denies sleep apnea, Denies snoring, Denies wheezing Gastrointestinal: Reports as per HPI, Reports abdominal pain, Reports dyspepsia, Reports early satiety, Reports loss of appetite, Reports nausea, Reports vomiting Genitourinary: Reports as per HPI Menstruation: Reports as per HPI, Denies amenorrhea, Denies amenorrhea on BC, Denies currently menstrual, Denies cycle < 21 days, Denies cycle > 35 days, Denies cycle variable, Denies menses 1-7 days, Denies menses 8 or > days, Denies menses variable, Denies period heavy, Denies period light, Denies period normal, Denies period spotting, Denies post hysterectomy, Denies postmenopausal, Denies premenarcheal Musculoskeletal: Reports as per HPI, Reports gait dysfunction, Reports limitation of motion, Denies arm numbness/tingling, Denies atrophy, Denies fractures, Denies frequent falls, Denies hot joints, Denies leg numbness/tin gling, Denies loss of height, Denies low back pain, Denies morning stiffness, Denies muscle cramps, Denies muscle weakness, Denies myalgias, Denies neck pain, Denies neck stiffness, Denies prior amputations, Denies redness of joints, Denies shooting arm pain, Denies shooting leg pain Integumentary: Reports as per HPI Neurological: Reports as per HPI, Reports memory loss Psychiatric: Reports as per HPI, Denies anhedonia, Denies anxiety, Denies anxiety attacks, Denies change in appetite, Denies change in libido, Denies change in sleep habits, Denies confusion, Denies depression, Denies difficulty concentrating, Denies disorientation, Denies hallucinations, Denies hopelessness, Denies hypersomnia, Denies insomnia, Denies irritability, Denies memory loss, Denies mood swings, Denies paranoia, Denies sadness/tearfulness, Denies sleep disturbances, Denies suicidal ideation Endocrine: Reports as per HPI Hematologic/Lymphatic: Reports as per HPI Allergic/Immunologic: Reports as per HPI, Denies allergic rhinitis, Denies anaphylaxis, Denies angioedema, Denies gluten intolerance, Denies persistent infections, Denies seasonal allergies, Denies urticaria, Denies wheezing Objective - Vital Signs Vital signs: Vital Signs Temp 98.2 F 08/09/19 04:43 Pulse 105 H 08/09/19 04:43 Resp 15 08/09/19 04:43 BP 95/52 08/09/19 04:43 Pulse Ox 95 08/09/19 04:43 Intake & Output 08/08/19 08/09/19 08/09/19 18:59 06:59 18:59 Intake Total 2170 1560 Output Total 500 550 Balance 1670 1010 Weight 72.5 kg Intake: Intake, IV Titration 1320 1240 Amount Sodium Chloride 0.9% 1, 1320 1240 000 ml @ 100 mls/hr IV . Q10H [facility] Rx#:[id number] Oral 850 320 Output: Urine 500 550 Other: Voiding Method Urinal Indwelling Catheter # Voids 2 2 - Exam General Appearance: Alert, cooperative at times, no distress, appears stated age. Neck HEENT: Supple, no lymphadenopathy, no thyroid enlargement, no carotid bruits. Lungs: Clear to auscultation without crackles or wheezes no rhonchi, no deformity. Chest Wall: Chest wall normal expansion with deep inspiration no tenderness and no deformity was found on exam, no costochondral pain or discomfort. Heart: Regular rate and rhythm, S1, S2 normal, no murmur, rub or gallop. Back: Symmetric, no curvature, ROM normal, no CVA tenderness. Abdomen: Soft, non-tender, no rebound or rigidity, no hepatosplenomegaly. Extremities: Extremities normal, atraumatic, no cyanosis or edema. Strength equal bilaterally Pulses: 2+ and symmetric. Skin: Skin color, texture, tugor normal, no rashes or lesions. Neurologic: Alert oriented x2, noted confusion, rambling cranial nerves II through XII intact, no motor deficit, no abnormal balance or gait - Labs CBC & Chem 7: 08/09/19 07:18 08/09/19 07:18 Labs: Abnormal Lab Results - Last 24 Hours (Table) 08/08/19 08/08/19 08/08/19 Range/Units 09:02 09:02 09:02 WBC 2.9 L (3.8-10.6) k/uL RBC 2.60 L (3.80-5.40) m/uL Hgb 8.2 L D (11.4-16.0) gm/dL Hct 25.5 L (34.0-46.0) % RDW 20.0 H (11.5-15.5) % Plt Count 52 L (150-450) k/uL Lymphocytes # (Manual) 0.46 L (1.0-4.8) k/uL Metamyelocytes # (Man) 0.15 H (0) k/uL Myelocytes # (Manual) 0.03 H (0) k/uL Nucleated RBCs 76 H (0-0) /100 WBC Chloride (98-107) mmol/L BUN 48 H (7-17) mg/dL Creatinine 1.87 H (0.52-1.04) mg/dL Calcium 15.8 H* (8.4-10.2) mg/dL AST 143 H (14-36) U/L ALT 68 H (4-34) U/L Alkaline Phosphatase 136 H (38-126) U/L Total Protein 5.9 L (6.3-8.2) g/dL Albumin 3.2 L (3.5-5.0) g/dL Lipase 1319 H (23-300) U/L PTH Intact <2.0 L (14.0-72.0) pg/mL Urine Appearance (Clear) Urine Protein (Negative) Urine Ketones (Negative) Urine Blood (Negative) Urine RBC (0-5) /hpf Amorphous Sediment (None) /hpf Urine Bacteria (None) /hpf Hyaline Casts (0-2) /lpf Urine Mucus (None) /hpf 08/09/19 08/09/19 08/09/19 Range/Units 04:55 07:18 07:18 WBC (3.8-10.6) k/uL RBC 2.21 L (3.80-5.40) m/uL Hgb 7.1 L (11.4-16.0) gm/dL Hct 21.6 L (34.0-46.0) % RDW 20.0 H (11.5-15.5) % Plt Count 44 L (150-450) k/uL Lymphocytes # (Manual) (1.0-4.8) k/uL Metamyelocytes # (Man) (0) k/uL Myelocytes # (Manual) (0) k/uL Nucleated RBCs (0-0) /100 WBC Chloride 109 H (98-107) mmol/L BUN 53 H (7-17) mg/dL Creatinine 2.38 H (0.52-1.04) mg/dL Calcium 12.9 H (8.4-10.2) mg/dL AST 155 H (14-36) U/L ALT 75 H (4-34) U/L Alkaline Phosphatase 143 H (38-126) U/L Total Protein 5.3 L (6.3-8.2) g/dL Albumin 2.7 L (3.5-5.0) g/dL Lipase 549 H (23-300) U/L PTH Intact (14.0-72.0) pg/mL Urine Appearance Cloudy H (Clear) Urine Protein 1+ H (Negative) Urine Ketones Trace H (Negative) Urine Blood Moderate H (Negative) Urine RBC 10 H (0-5) /hpf Amorphous Sediment Occasional H (None) /hpf Urine Bacteria Rare H (None) /hpf Hyaline Casts 3 H (0-2) /lpf Urine Mucus Rare H (None) /hpf Assessment and Plan Plan: 1. Critical Hypercalcemia secondary to malignancy with metastatic disease to the bone. Nephrology consult appreciated. IV fluids decreased to 100 mL per hour, pamidronate IV, 19 mg 1 dose, discontinue vitamin D. Electrophoresis studies negative. Appropriately suppressed PTH from previous workup, consult with Dr. Mccormick reviewed and appreciated, Dr. Ordonez. Discontinue Lasix, discontinue potassium supplement, start calcitonin 300 units IM twice a day. PTH less than 2 2. Acute pancreatitis, most likely secondary to hypercalcemia, prior history of cholecystectomy with sphincterotomy, obtain abdominal ultrasound, which is negative for common bile duct outpatient, nothing by mouth to clear liquid diet, antiemetics, 3. Pancytopenia with Breast cancer with bone metastasis status post multiple surgical interventions. Oncology consult. 4. Paroxysmal atrial fibrillation. Continue Toprol-XL 25 mg in the morning and 50 mg at bedtime, Xarelto 20 mg daily. 5. Acute renal failure with underlying CTk stage I, secondary to dehydration, A TN, IV fluids for hydration, patient is on IV Lasix as well as IV fluids for severe hypercalcemia, IV Lasix and admitted to be discontinued once calcium is stabilized. 6. Hypothyroidism. Continue levothyroxine 175 g daily. 5. Gastroesophageal reflux disease and GI prophylaxis. Continue Protonix. 7. Chronic pain syndrome. Continue Voltaren gel, Robaxin 750 mg every 6 hours as needed, OxyContin 30 mg extended release every 12 hours, oxycodone 10 mg every 4 hours as needed. 8 Transaminitis, acute, possibly possibly related to COATES, alkaline phosphatase elevations also noted most likely secondary to bone metastases, doubt obstructive etiology, cant r/o other itioloty include liver med 9 History of thyroid cancer. 10. Generalized anxiety disorder. Continue Xanax or 0.5 mg 4 times daily as needed. 11. Increased confusion possibly metastases to brain. MRI without contrast o rdered DVT prophylaxis on chronic Xarelto dose GI prophylaxis Protonix Discharge plan: Return home with [facility] Impression and plan of care have been directed as dictated by the signing physician. Gaby Gates nurse practitioner acting as scribe for signing physician.
--- NOTE | 2019-08-09 10:16 | PN ---
PROGRESS NOTE DATE OF DICTATION: August 09, 2019 The patient is a 58-year-old pleasant white female with history of metastatic breast cancer with bone metastasis, undergoing chemotherapy. Last chemo was 2 weeks ago, admitted to the hospital with severe hypercalcemia and acute pancreatitis. She complains of diffuse body pain, some abdominal pain. No nausea, vomiting. She was started on a clear liquid diet yesterday, tolerating well. PHYSICAL EXAMINATION: Blood pressure 95/52, pulse rate 105, temperature 98.2. HEENT examination unremarkable. Conjunctivae pink. Sclerae anicteric. Oral cavity no lesions. NECK: No JVD or lymph node enlargement. CHEST: Clear to auscultation. HEART: Regular rate and rhythm. ABDOMEN: Soft. Bowel sounds are positive. There is mild diffuse tenderness mostly in the epigastric area and periumbilical area. The rest of the abdomen is benign. EXTREMITIES: No pedal edema. SKIN: No rashes. NEUROLOGIC: Alert and oriented x3. No focal deficits. LABS: From today: WBC 5.7, hemoglobin 7.1, platelets 44,000. T-bilirubin is 0.6, AST 155, ALT 75, alkaline phosphatase is 143, calcium has significantly improved to 12.9. BUN and creatinine are 53 and 2.3 respectively. Lipase is down to 549. IMPRESSION: 1. Acute pancreatitis secondary to hypercalcemia, which is gradually improving. Lipase has improved to 549 today. On a clear liquid diet, tolerating well. 2. Hypercalcemia, improved. Today it is 12.9. 3. Metastatic breast cancer, undergoing chemotherapy, last one was 2 weeks ago. 4. Pancytopenia related to recent chemotherapy which is improving. RECOMMENDATIONS: 1. Continue aggressive hydration. 2. Correct hypercalcemia. 3. Monitor lipase on a daily basis. 4. We will advance to full liquid diet today. 5. We will follow with you closely during her hospital stay. Thank you for this consultation. MMODL / IJN: [id number] /
--- NOTE | 2019-08-09 10:25 | P.PN ---
Subjective Patient is seen in follow-up for acute kidney injury. Renal function is worsening. Creatinine 2.3 today. Patient has a Miller catheter. She is no noliguric. She is receiving IV fluids. Calcium level is trending down. It is 12.9 today. Patient is confused. Vital signs are stable. General: The patient appeared well nourished and normally developed. HEENT: Head exam is unremarkable. Neck is without jugular venous distension. LUNGS: Lungs are clear to auscultation and percussion. Breath sounds decreased. HEART: Rate and Rhythm are regular. First and second heart sounds normal. No murmurs, rubs or gallops. ABDOMEN: Abdominal exam reveals normal bowel sounds. Non-tender and non- distended. No evidence of peritonitis. EXTREMITITES: No clubbing, cyanosis, or edema. Objective - Vital Signs Vital signs: Vital Signs Temp 98.2 F 08/09/19 04:43 Pulse 105 H 08/09/19 04:43 Resp 15 08/09/19 04:43 BP 95/52 08/09/19 04:43 Pulse Ox 95 08/09/19 04:43 Intake & Output 08/08/19 08/09/19 08/09/19 18:59 06:59 18:59 Intake Total 2170 1560 Output Total 500 550 Balance 1670 1010 Weight 72.5 kg Intake: Intake, IV Titration 1320 1240 Amount Sodium Chloride 0.9% 1, 1320 1240 000 ml @ 100 mls/hr IV . Q10H [facility] Rx#:[id number] Oral 850 320 Output: Urine 500 550 Other: Voiding Method Urinal Indwelling Catheter Indwelling Catheter # Voids 2 2 - Labs CBC & Chem 7: 08/09/19 07:18 08/09/19 07:18 Labs: Abnormal Lab Results - Last 24 Hours (Table) 08/08/19 08/08/19 08/09/19 Range/Units 09:02 09:02 04:55 WBC 2.9 L (3.8-10.6) k/uL RBC (3.80-5.40) m/uL Hgb (11.4-16.0) gm/dL Hct (34.0-46.0) % RDW (11.5-15.5) % Plt Count (150-450) k/uL Lymphocytes # (Manual) 0.46 L (1.0-4.8) k/uL Metamyelocytes # (Man) 0.15 H (0) k/uL Myelocytes # (Manual) 0.03 H (0) k/uL Nucleated RBCs 76 H (0-0) /100 WBC Chloride (98-107) mmol/L BUN (7-17) mg/dL Creatinine (0.52-1.04) mg/dL Calcium (8.4-10.2) mg/dL AST (14-36) U/L ALT (4-34) U/L Alkaline Phosphatase (38-126) U/L Total Protein (6.3-8.2) g/dL Albumin (3.5-5.0) g/dL Lipase (23-300) U/L PTH Intact <2.0 L (14.0-72.0) pg/mL Urine Appearance Cloudy H (Clear) Urine Protein 1+ H (Negative) Urine Ketones Trace H (Negative) Urine Blood Moderate H (Negative) Urine RBC 10 H (0-5) /hpf Amorphous Sediment Occasional H (None) /hpf Urine Bacteria Rare H (None) /hpf Hyaline Casts 3 H (0-2) /lpf Urine Mucus Rare H (None) /hpf 08/09/19 08/09/19 Range/Units 07:18 07:18 WBC (3.8-10.6) k/uL RBC 2.21 L (3.80-5.40) m/uL Hgb 7.1 L (11.4-16.0) gm/dL Hct 21.6 L (34.0-46.0) % RDW 20.0 H (11.5-15.5) % Plt Count 44 L (150-450) k/uL Lymphocytes # (Manual) (1.0-4.8) k/uL Metamyelocytes # (Man) (0) k/uL Myelocytes # (Manual) (0) k/uL Nucleated RBCs (0-0) /100 WBC Chloride 109 H (98-107) mmol/L BUN 53 H (7-17) mg/dL Creatinine 2.38 H (0.52-1.04) mg/dL Calcium 12.9 H (8.4-10.2) mg/dL AST 155 H (14-36) U/L ALT 75 H (4-34) U/L Alkaline Phosphatase 143 H (38-126) U/L Total Protein 5.3 L (6.3-8.2) g/dL Albumin 2.7 L (3.5-5.0) g/dL Lipase 549 H (23-300) U/L PTH Intact (14.0-72.0) pg/mL Urine Appearance (Clear) Urine Protein (Negative) Urine Ketones (Negative) Urine Blood (Negative) Urine RBC (0-5) /hpf Amorphous Sediment (None) /hpf Urine Bacteria (None) /hpf Hyaline Casts (0-2) /lpf Urine Mucus (None) /hpf Assessment and Plan Plan: Assessment: 1. Acute kidney injury secondary to ATN secondary to hypercalcemia, hypotension and intravascular volume depletion from vomiting. Renal function worsening. Creatinine 2.38 today. Baseline near 1. 2. Hypercalcemia secondary to bone metastasis and volume contraction. Improving. PTH appropriately suppressed. Vitamin D normal. 3. Breast cancer with bone metastasis. 4. Pancytopenia secondary to chemotherapy. Hemoglobin trending down. No active bleeding. Plan: Maintain normal saline at 100 mL an hour. Continue to hold diuretics. Status post pamidronate on August 07. Maintain calcitonin 300 units IM twice daily - can likely discontinue tomorrow. Repeat electrolytes in the morning. Hold antihypertensives for systolic blood pressure is than 120.
[2019-08-09 12:32] LABS: T4, Free (Free Thyroxine) 1.06 ng/dL (0.78-2.19)
[2019-08-09] MEDS: LORazepam 0.5 MG TAB PO PRN (14:06)
[2019-08-09 14:09] LABS: Band Neutrophils % 4 %; Metamyelocytes % 2 %; Myelocytes % 4 %; Neutrophils % (M) 62 %; Nucleated Red Blood Cells 65 /100 WBC (0-0); Total Cells Counted 200
[2019-08-09 14:10] LABS: Lymphocytes # (M) 0.56 k/uL (1.0-4.8); Metamyelocytes # (M) 0.07 k/uL (0); Monocytes # (M) 0.46 k/uL (0-1.0); Myelocytes # (M) 0.14 k/uL (0); WBC 3.5 k/uL (3.8-10.6)
[2019-08-09 14:12] LABS: Polychromasia Present
[2019-08-09] MEDS: RIVAROXABAN 15 MG TAB PO SCH (16:59)
[2019-08-09 18:28] LABS: Anisocytosis Moderate; HCT 21.1 % (34.0-46.0); Hypochromasia Slight; MCH 30.9 pg (25.0-35.0); MCHC 31.7 g/dL (31.0-37.0); MCV 97.5 fL (80.0-100.0); Macrocytosis Slight; Mean Platelet Volume 8.7; Poikilocytosis Slight; RBC 2.17 m/uL (3.80-5.40)
[2019-08-09 18:31] LABS: HGB 6.7 gm/dL (11.4-16.0)
[2019-08-09 19:16] LABS: Band Neutrophils % 7 %; Basophils # (M) 0.03 k/uL (0-0.2); Lymphocytes # (M) 0.61 k/uL (1.0-4.8); Metamyelocytes # (M) 0.07 k/uL (0); Metamyelocytes % 2 %; Monocytes # (M) 0.07 k/uL (0-1.0); Neutrophils % (M) 72 %; Nucleated Red Blood Cells 46 /100 WBC (0-0); Platelet Count 40 k/uL (150-450); Poikilocytosis (M) Present; Polychromasia Present; Total Cells Counted 200; WBC 3.4 k/uL (3.8-10.6)
--- NOTE | 2019-08-09 19:53 | P.CONS ---
History of Present Illness - Reason for Consult Consult date: 08/09/19 - Chief Complaint metastatic breast cancer hypercalcemia - History of Present Illness This is a 58-year-old female with significant confusion currently admitted for treatment of hypercalcemia, altered mental sensorium, with a past medical history of breast cancer metastatic, For his under care of Dr. Ordonez, significant nausea and vomiting. She is confused as previous history of hypercalcemia.initially diagnosed in 2010 with limited stage breast cancer, subsequently developed metastatic disease in 2013 with extensive bone metastases status post multiple lines of treatment was following [facility] animal care provider at [place]. subsequently switched care to Dr. Ordonez after she was discharged from the hospital in April 2019. Currently on chemotherapy, pancytopenic Review of Systems patient is confused, lethargic altered mental sensorium. Past Medical History Past Medical History: Atrial Fibrillation, Cancer, Fibromyalgia, GERD/Reflux, Thyroid Disorder Additional Past Medical History / Comment(s): breast cancer status post lumpectomy in 2010 with recurrence of invasive ductal carcinoma stage III grade IIIa with lumpectomy July 2013 with bone metastasis and multiple pathologic compression fractures. Status post cervical fusion, right femur nail and titanium joaquín all positive for cancer in December 2018, kyphoplasty L3 followed by kyphoplasty T12, L1, L5-S1 with radiofrequency ablation April 2019, history of thyroid cancer status post lobectomy and radiation therapy, chronic atrial fibrillation status post ablation on Xarelto, hypothyroidism, chronic pain syndrome, gastroesophageal reflux disease, generalized anxiety disorder. History of Any Multi-Drug Resistant Organisms: None Reported Past Surgical History: Ablation, Back Surgery, Cholecystectomy, Hysterectomy, Orthopedic Surgery Additional Past Surgical History / Comment(s): lumpectomy left breast x3, lobectomy thyroid, c5 c6 c7 fusion, bone marrow biopsy, bar/nail in right thigh and plate in right arm, ablation on heart 2012, gallstone removed from bile duct, left breast re-incision for clear margins in 2013,port plcement, 2015 had port removed, kyphoplasty on back x3 and radiofrequncy ablation to back, Past Anesthesia/Blood Transfusion Reactions: Previous Problems w/ Anesthesia Additional Past Anesthesia/Blood Transfusion Reaction / Comm: Hard time waking up and hypothermia Past Psychological History: Depression Additional Psychological History / Comment(s): Patient lives in ranch style home with . Patient walks with walker. Smoking Status: Never smoker Past Alcohol Use History: None Reported Additional Past Alcohol Use History / Comment(s): Patient is a lifelong nonsmoker, or illicit drug use. Used to smoke marijuana but hasnt for the last year. Past Drug Use History: None Reported - Past Family History Son(s) History Unknown: Yes Additional Family Medical History / Comment(s): Small nodule on thyroid, no other history Father Family Medical History: No Reported History Additional Family Medical History / Comment(s): Patient does not know any history on her father. Mother Family Medical History: COPD Additional Family Medical History / Comment(s): Mother at age 83 from a perforated bowel with fistula to the bladder, COPD history. Brother(s) Additional Family Medical History / Comment(s): Patient has 1 brother that had part of his colon removed. Patient does not have any sisters. Medications and Allergies Home Medications Medication Instructions Recorded Confirmed Type Levothyroxine Sodium [Synthroid] 175 mcg PO DAILY@0500 09/15/17 08/07/19 History Loratadine 10 mg PO DAILY PRN 09/15/17 08/07/19 History Acetaminophen Tab [Tylenol] 1,000 mg PO Q8H 06/15/19 08/07/19 History HYDROmorphone HCL 2 mg PO Q6H PRN 06/15/19 08/07/19 History Methocarbamol [Robaxin] 1,500 mg PO Q6H PRN 06/15/19 08/07/19 History Metoprolol Succinate (ER) [Toprol 25 mg PO DAILY 06/15/19 08/07/19 History XL] Metoprolol Succinate (ER) [Toprol 50 mg PO HS 06/15/19 08/07/19 History XL] Polyethylene Glycol 3350 [Miralax] 17 gm PO DAILY 06/15/19 08/07/19 History Potassium Chloride [Klor-Con 20] 20 meq PO DAILY 06/15/19 08/07/19 History Rivaroxaban [Xarelto] 20 mg PO W/SUPPER 06/15/19 08/07/19 History Sennosides [Senna] 8.6 mg PO BID 06/15/19 08/07/19 History oxyCODONE HCL [Roxicodone] 10 mg PO Q4H PRN 06/15/19 08/07/19 History Docusate [Colace] 100 mg PO DAILY PRN 08/07/19 08/07/19 History LORazepam [Ativan] 0.5 mg PO TID PRN 08/07/19 08/07/19 History Omeprazole 20 mg PO DAILY 08/07/19 08/07/19 History Palbociclib [Ibrance] 100 mg PO DIRECTED 08/07/19 08/07/19 History oxyCODONE HCL [OxyCONTIN] 30 mg PO Q12H 08/07/19 08/07/19 History Allergies Allergy/AdvReac Type Severity Reaction Status Date / Time gabapentin Allergy Rash/Hives Verified 08/07/19 21:58 vancomycin Allergy Rash/Hives Verified 08/07/19 21:58 morphine [From MS Contin] AdvReac Nausea & Verified 08/07/19 21:58 Vomiting & Diarrhea Physical Exam Vitals: Vital Signs Temp Pulse Resp BP Pulse Ox 08/09/19 15:43 79 16 08/09/19 11:36 98.4 F 102 H 16 134/60 95 08/09/19 04:43 98.2 F 105 H 15 95/52 95 08/08/19 21:28 100.5 F H 110 H 16 112/68 97 Intake and Output 08/09/19 08/09/19 08/09/19 06:59 14:59 22:59 Intake Total 1000 1680 Output Total 550 550 850 Balance 450 1130 -850 Intake: Intake, IV Titration 800 1200 Amount Sodium Chloride 0.9% 1, 800 1200 000 ml @ 100 mls/hr IV . Q10H [facility] Rx#:[id number] Oral 200 480 Output: Urine 550 550 850 Other: Voiding Method Indwelling Catheter Indwelling Catheter Indwelling Catheter # Voids 1 1 The patient appeared well nourished and normally developed. Vital signs as documented. Head exam is unremarkable. No scleral icterus or corneal arcus noted. Neck is without jugular venous distension, thyromegaly, or carotid bruits. Carotid upstrokes are brisk bilaterally. Lungs are clear to auscultation and percussion. Cardiac exam reveals the PMI to be normally sized and situated. Rhythm is regular. First and second heart sounds normal. No murmurs, rubs or gallops. Abdominal exam reveals normal bowel sounds, no masses, no organomegaly and no aortic enlargement. Extremities are nonedematous and both femoral and pedal pulses are normal. Results CBC & Chem 7: 08/09/19 17:35 08/09/19 07:18 Labs: Abnormal Lab Results - Last 24 Hours (Table) 08/09/19 08/09/19 08/09/19 Range/Units 04:55 07:18 07:18 WBC 3.5 L (3.8-10.6) k/uL RBC 2.21 L (3.80-5.40) m/uL Hgb 7.1 L (11.4-16.0) gm/dL Hct 21.6 L (34.0-46.0) % RDW 20.0 H (11.5-15.5) % Plt Count 44 L (150-450) k/uL Lymphocytes # (Manual) 0.56 L (1.0-4.8) k/uL Metamyelocytes # (Man) 0.07 H (0) k/uL Myelocytes # (Manual) 0.14 H (0) k/uL Nucleated RBCs 65 H (0-0) /100 WBC Chloride 109 H (98-107) mmol/L BUN 53 H (7-17) mg/dL Creatinine 2.38 H (0.52-1.04) mg/dL Calcium 12.9 H (8.4-10.2) mg/dL AST 155 H (14-36) U/L ALT 75 H (4-34) U/L Alkaline Phosphatase 143 H (38-126) U/L Total Protein 5.3 L (6.3-8.2) g/dL Albumin 2.7 L (3.5-5.0) g/dL Lipase 549 H (23-300) U/L TSH (0.465-4.680) mIU/L Urine Appearance Cloudy H (Clear) Urine Protein 1+ H (Negative) Urine Ketones Trace H (Negative) Urine Blood Moderate H (Negative) Urine RBC 10 H (0-5) /hpf Amorphous Sediment Occasional H (None) /hpf Urine Bacteria Rare H (None) /hpf Hyaline Casts 3 H (0-2) /lpf Urine Mucus Rare H (None) /hpf 08/09/19 08/09/19 Range/Units 07:18 17:35 WBC 3.4 L (3.8-10.6) k/uL RBC 2.17 L (3.80-5.40) m/uL Hgb 6.7 L* (11.4-16.0) gm/dL Hct 21.1 L (34.0-46.0) % RDW 20.0 H (11.5-15.5) % Plt Count 40 L (150-450) k/uL Lymphocytes # (Manual) 0.61 L (1.0-4.8) k/uL Metamyelocytes # (Man) 0.07 H (0) k/uL Myelocytes # (Manual) (0) k/uL Nucleated RBCs 46 H (0-0) /100 WBC Chloride (98-107) mmol/L BUN (7-17) mg/dL Creatinine (0.52-1.04) mg/dL Calcium (8.4-10.2) mg/dL AST (14-36) U/L ALT (4-34) U/L Alkaline Phosphatase (38-126) U/L Total Protein (6.3-8.2) g/dL Albumin (3.5-5.0) g/dL Lipase (23-300) U/L TSH 0.062 L (0.465-4.680) mIU/L Urine Appearance (Clear) Urine Protein (Negative) Urine Ketones (Negative) Urine Blood (Negative) Urine RBC (0-5) /hpf Amorphous Sediment (None) /hpf Urine Bacteria (None) /hpf Hyaline Casts (0-2) /lpf Urine Mucus (None) /hpf Assessment and Plan Assessment: Impression and plan: 1. Hypercalcemia secondary to breast cancer and bony metastasis:altered mental sensorium: - low PTH. consistent with hypercalcemia of malignancy. - that is post pamidronate, continues to be on calcitonin, IV hydration. - will add Decadron.40 mg IV once. - if continues to have hypercalcemia, consider repeating pamidronate. 2. Metastatic breast cancer: breast cancer to bone only ER 30%, prior to this was on faslodex and on Ibrance , currently on chemotherapy. post kyphoplasty - Long-standing history of breast cancer since 2010 status post lumpectomy with recurrence in July 2013 with bony metastasis and pathological compression fractures. - Significant history of metastatic breast cancer with bony metastases. Follows Dr. Ordonez. - Extensive bony disease currently. - Currently on chemotherapy. - Resume chemotherapy as outpatient. 3. Pancytopenia secondary to chemotherapy: - transfuse to keep hemoglobin above 7. Platelets about 10,000. - plan for one unit of PRBC today. 4. Acute kidney injury secondary to acute tubular necrosis: - IV hydration. 5. Pancreatitis:Diffuse abdominal pain.nausea vomiting diarrhea. - Rule out infection. 6. Hypothyroidism, GERD, chronic pain, elevated liver enzymes, history of thyroid cancer, generalized anxiety. Thank you for allowing us to participate in the care of your patient. Please feel free to call us with any questions. Scooter Gamble MD Criminal Psychologist, [facility] On[facility] [id number], [address] [place] [address] Office: [phone], Time with Patient: Greater than 30
[2019-08-09] MEDS: DEXAMETHASONE SOD PHOSPHATE 20 MG in DEXTROSE 5% IN WATER 50 ML IV SCH ×2 (21:13)
[2019-08-09] MEDS: METOPROLOL SUCCINATE (ER) 50 MG TAB.ER.24H PO SCH (21:18)
[2019-08-09] MEDS ORDERED: DILTIAZEM DRIP BOLUS FROM BAG 1 MG SOLN IV ONE (23:32)
[2019-08-09 23:57] LABS: Glucose,Whole Blood 119 mg/dL (75-99)
[2019-08-10] MEDS ORDERED: FUROSEMIDE 10 MG/ML 4 ML VIAL IV PRN (00:14)
[2019-08-10] MEDS: DILTIAZEM 125 MG in SODIUM CHLORIDE 0.9% 100 ML IV SCH ×2 (02:34→23:48)
[2019-08-10] MEDS: DEXAMETHASONE SOD PHOSPHATE 20 MG in DEXTROSE 5% IN WATER 50 ML IV SCH ×2 (03:19)
[2019-08-10 05:13] LABS: Anisocytosis Slight; HCT 27.2 % (34.0-46.0); Hypochromasia Slight; MCH 31.5 pg (25.0-35.0); MCHC 33.4 g/dL (31.0-37.0); MCV 94.2 fL (80.0-100.0); Macrocytosis Slight; Poikilocytosis Slight; RBC 2.88 m/uL (3.80-5.40); RDW 19.5 % (11.5-15.5); WBC 6.3 k/uL (3.8-10.6)
[2019-08-10 05:16] LABS: HGB 9.1 gm/dL (11.4-16.0)
[2019-08-10 05:17] LABS: Platelet Count 45 k/uL (150-450)
[2019-08-10 05:26] LABS: Albumin 3.1 g/dL (3.5-5.0); Calcium 11.4 mg/dL (8.4-10.2); Potassium 3.7 mmol/L (3.5-5.1); Total Bilirubin 0.6 mg/dL (0.2-1.3)
[2019-08-10] MEDS: PANTOPRAZOLE 40 MG TABLET PO SCH (05:34)
[2019-08-10] MEDS: HYDROmorphone 0.5 MG/0.5 ML SYRINGE IVP PRN ×3 (05:34→14:32)
[2019-08-10 05:35] LABS: Ionized Calcium 6.7 mg/dL (4.5-5.3)
[2019-08-10] MEDS: LEVOTHYROXINE 88 MCG TAB PO SCH (05:55)
[2019-08-10] MEDS: CALCITONIN INJ 200 UNIT/ML (MDV) VIAL IM SCH (09:03)
[2019-08-10] MEDS: oxyCODONE ER 15 MG TAB.ER.12H PO SCH ×2 (09:03→20:17)
[2019-08-10] MEDS: METOPROLOL TARTRATE 50 MG TAB PO SCH ×3 (09:05→20:20)
[2019-08-10 10:03] LABS: Basophils # (M) 0.05 k/uL (0-0.2); Eosinophils # (M) 0.05 k/uL (0-0.7); Lymphocytes # (M) 1.42 k/uL (1.0-4.8); Monocytes # (M) 0.34 k/uL (0-1.0); Myelocytes # (M) 0.15 k/uL (0); WBC 4.9 k/uL (3.8-10.6)
[2019-08-10 10:45] LABS: % Iron Saturation 28.76 (12.00-45.00)
--- NOTE | 2019-08-10 11:38 | CONS ---
CONSULTATION Nancy Godinez is a 58-year-old unfortunate lady with breast cancer, bone metastasis, hypercalcemia who came into the hospital with these issues. She also has pancytopenia and required a blood transfusion. She developed atrial fibrillation with rapid ventricular rate and I was asked to see her in this regard. She was being treated for hypercalcemia. However, she has converted to sinus rhythm. She remains in sinus rhythm at this time. She has been on Xarelto 20 mg daily. In the light of low platelet count and low hemoglobin requiring blood transfusion, I am recommending that we discontinue the Xarelto altogether and use metoprolol tartrate 50 mg t.i.d. for rate control. EKG reveals a sinus rhythm. She is resting comfortably, but appears quite exhausted. PAST MEDICAL HISTORY: Remarkable for paroxysmal atrial fibrillation on Xarelto in the past, fibromyalgia, history of breast cancer with metastatic disease, thyroid disease. She is status post lumpectomy in 2010 with recurrence of cancer and she now has bone METS with hyperkalemia. She is status post some back surgery, cholecystectomy, hysterectomy as well. MEDICATIONS: At home include pain medications, oxycodone, Xarelto 20 mg daily, metoprolol succinate 50 mg daily, muscle relaxants, she also takes omeprazole and Tylenol and Synthroid 175 mcg daily. ALLERGIES: She is allergic to GABAPENTIN, VANCOMYCIN and MORPHINE. PHYSICAL EXAMINATION: Blood pressure is 140/70, pulse rate is about 90, sinus. HEENT: Unremarkable. Fundus was not examined by me. Neck is supple. There is no clear-cut JVD. No carotid bruit. Heart exam reveals S1, S2 with the rhythm being regular. There is a short systolic murmur. Lungs reveal diminished air entry. Abdomen is soft, nontender. Lower extremities reveal diminished pulses. Central nervous system is grossly within normal limits. EKG revealed sinus mechanism, nonspecific ST changes. Echo from May of this year revealed ejection fraction of 50%-55% without pulmonary hypertension. No significant abnormality was noted on the Doppler exam and this was from June 19, 2019. IMPRESSION: 1. Atrial fibrillation with rapid ventricular rate, now converted to sinus rhythm. 2. Breast cancer with bone METS and hypercalcemia. 3. History of hypertension. 4. Patient has had previous ablation for atrial fibrillation in the past. RECOMMENDATION: I am recommending metoprolol tartrate 50 mg t.i.d., discontinue Xarelto and hyperkalemia has improved, calcium levels have come down nicely. Thank you very much for the consult. MMFRANKLYN / IJN: [id number] /
[2019-08-10 11:42] LABS: Ferritin 3969.3 ng/mL (10.0-291.0)
--- NOTE | 2019-08-10 12:44 | P.PN ---
Subjective Progress Note Date: 08/10/19 Principal diagnosis: MBC, hypercalcemia of malignancy In f/u today pt continues to be confused, family is at the bedside, she denied SHARONA, stated she could feel palpitations despite being in SR on the monitor, no nausea, mild abd discomfort, no recent vomiting or diarrhea. Objective - Vital Signs Vital signs: Vital Signs Temp 97.8 F 08/10/19 08:00 Pulse 93 08/10/19 10:00 Resp 18 08/10/19 10:00 BP 143/93 08/10/19 10:00 Pulse Ox 95 08/10/19 10:00 Intake & Output 08/09/19 08/10/19 08/10/19 18:59 06:59 18:59 Intake Total 1680 910 Output Total 1400 360 Balance 280 550 Weight 76.8 kg Intake: IV 400 Sodium Chloride 0.9% 1, 400 000 ml @ 100 mls/hr IV . Q10H [facility] Rx#:[id number] Intake, IV Titration 1200 200 Amount Sodium Chloride 0.9% 1, 1200 200 000 ml @ 100 mls/hr IV . Q10H [facility] Rx#:[id number] Oral 480 Blood Product 310 Rc As-1 Unit 310 [id number] Output: Urine 1400 360 Other: Voiding Method Indwelling Catheter Indwelling Catheter Indwelling Catheter # Voids 1 - Constitutional General appearance: Present: mild distress, obese - EENT Eyes: Present: anicteric sclerae, EOMI, poor dentition ENT: Present: hearing grossly normal, normal oropharynx - Respiratory Respiratory: bilateral: CTA, diminished (increased RR) - Cardiovascular Rhythm: regular Heart sounds: normal: S1, S2 Abnormal Heart Sounds: Absent: systolic murmur, diastolic murmur, rub, S3 Gallop, S4 Gallop, click, other - Peripheral edema leg Peripheral Edema: bilateral: None - Gastrointestinal General gastrointestinal: Present: normal bowel sounds, soft, tenderness (generalized) - Integumentary Integumentary: Present: normal - Neurologic Neurologic: Present: CNII-XII intact - Musculoskeletal Musculoskeletal: Present: generalized weakness - Psychiatric Psychiatric Comment(s): Pt is lucid at times Psychiatric: Present: A&O x's 3 - Labs CBC & Chem 7: 08/10/19 04:38 08/10/19 04:38 Labs: Abnormal Lab Results - Last 24 Hours (Table) 08/07/19 08/09/19 08/09/19 Range/Units 20:03 07:18 17:35 WBC 3.5 L 3.4 L (3.8-10.6) k/uL RBC 2.17 L (3.80-5.40) m/uL Hgb 6.7 L* (11.4-16.0) gm/dL Hct 21.1 L (34.0-46.0) % RDW 20.0 H (11.5-15.5) % Plt Count 40 L (150-450) k/uL Lymphocytes # (Manual) 0.56 L 0.61 L (1.0-4.8) k/uL Metamyelocytes # (Man) 0.10 H 0.07 H 0.07 H (0) k/uL Myelocytes # (Manual) 0.15 H 0.14 H (0) k/uL Nucleated RBCs 65 H 46 H (0-0) /100 WBC Chloride (98-107) mmol/L BUN (7-17) mg/dL Creatinine (0.52-1.04) mg/dL Glucose (74-99) mg/dL POC Glucose (mg/dL) (75-99) mg/dL Calcium (8.4-10.2) mg/dL Ionized Calcium Radha (4.5-5.3) mg/dL Ferritin (10.0-291.0) ng/mL AST (14-36) U/L ALT (4-34) U/L Alkaline Phosphatase (38-126) U/L Total Protein (6.3-8.2) g/dL Albumin (3.5-5.0) g/dL Crossmatch 08/09/19 08/09/19 08/09/19 Range/Units 19:29 19:29 23:55 WBC (3.8-10.6) k/uL RBC (3.80-5.40) m/uL Hgb (11.4-16.0) gm/dL Hct (34.0-46.0) % RDW (11.5-15.5) % Plt Count (150-450) k/uL Lymphocytes # (Manual) (1.0-4.8) k/uL Metamyelocytes # (Man) (0) k/uL Myelocytes # (Manual) (0) k/uL Nucleated RBCs (0-0) /100 WBC Chloride (98-107) mmol/L BUN (7-17) mg/dL Creatinine (0.52-1.04) mg/dL Glucose (74-99) mg/dL POC Glucose (mg/dL) 119 H (75-99) mg/dL Calcium (8.4-10.2) mg/dL Ionized Calcium Radha (4.5-5.3) mg/dL Ferritin 3969.3 H (10.0-291.0) ng/mL AST (14-36) U/L ALT (4-34) U/L Alkaline Phosphatase (38-126) U/L Total Protein (6.3-8.2) g/dL Albumin (3.5-5.0) g/dL Crossmatch See Detail 08/10/19 08/10/19 Range/Units 04:38 04:38 WBC (3.8-10.6) k/uL RBC 2.88 L (3.80-5.40) m/uL Hgb 9.1 L D (11.4-16.0) gm/dL Hct 27.2 L (34.0-46.0) % RDW 19.5 H (11.5-15.5) % Plt Count 45 L (150-450) k/uL Lymphocytes # (Manual) (1.0-4.8) k/uL Metamyelocytes # (Man) (0) k/uL Myelocytes # (Manual) (0) k/uL Nucleated RBCs (0-0) /100 WBC Chloride 108 H (98-107) mmol/L BUN 51 H (7-17) mg/dL Creatinine 2.05 H (0.52-1.04) mg/dL Glucose 150 H (74-99) mg/dL POC Glucose (mg/dL) (75-99) mg/dL Calcium 11.4 H (8.4-10.2) mg/dL Ionized Calcium Radha 6.7 H* (4.5-5.3) mg/dL Ferritin (10.0-291.0) ng/mL AST 130 H (14-36) U/L ALT 75 H (4-34) U/L Alkaline Phosphatase 180 H (38-126) U/L Total Protein 6.0 L (6.3-8.2) g/dL Albumin 3.1 L (3.5-5.0) g/dL Crossmatch Assessment and Plan (1) Hypercalcemia Narrative/Plan: Pt has had several instances of hypercalcemia of malignancy. Calcitonin was given, gentle hydration. CXR is describing significant marianna changes, will get results to Dr. Ordonez. Tumor markers ordered, pending MRI brain. Current Visit: Yes Status: Acute Priority: High Code(s): E83.52 - HYPERCALCEMIA SNOMED Code(s): 91646381 (2) Bicytopenia Narrative/Plan: Secondary to treatment of breast cancer and marrow involvement with cancer Transfuse to keep Hgb 7 or higher, plt >10,000 unless symptomatic. WBC/ANC adequate at this time Current Visit: Yes Status: Acute Priority: High Code(s): D75.89 - OTHER SPECIFIED DISEASES OF BLOOD AND BLOOD-FORMING ORGANS SNOMED Code(s): 34759518 (3) Metastatic breast cancer Narrative/Plan: Mets to bone and bone marrow. Treatment with Ibrance/ faslodex and xgeva. Was due to start cycle on 07/30 but this was delayed due to pt c/o and significant hematological changes. Counts are currently stable. Plan to resume treatment after recovery from current situation Current Visit: Yes Status: Chronic Priority: High Code(s): C50.919 - MALIGNANT NEOPLASM OF UNSP SITE OF UNSPECIFIED FEMALE BREAST SNOMED Code(s): 930374467 (4) A-fib Narrative/Plan: NSR on monitor at time of exam. Hold anticoagulation due to low plt count Current Visit: Yes Status: Chronic Priority: Medium Code(s): I48.91 - UNSPECIFIED ATRIAL FIBRILLATION SNOMED Code(s): 96843683
--- NOTE | 2019-08-10 15:04 | P.PN ---
Subjective Progress Note Date: 08/10/19 This is a 58-year-old female patient of Micheal Nielsen NP with past medical history of breast cancer status post lumpectomy in 2010 with recurrence of invasive ductal carcinoma stage III grade IIIa with lumpectomy July 2013 with bone metastasis and multiple pathologic compression fractures. Status post cervical fusion, right femur nail and titanium joaquín all positive for cancer in December 2018, kyphoplasty L3 followed by kyphoplasty T12, L1, L5-S1 with radiofrequency ablation April 2019, history of thyroid cancer status post lobectomy and radiation therapy, chronic atrial fibrillation status post ablation on Xarelto, hypothyroidism, chronic pain syndrome, gastroesophageal reflux disease, generalized anxiety disorder. Patient's last chemotherapy was performed on 05/13/2019. Last radiation to the cervical, right femur and lumbar areas completed on 02/20/2019. PET scan on 06/06/2019 revealed osseous metastatic disease. Patient has [facility] care in place. Patient states that she was at [facility] from May 21 through the June 02 at which time she underwent lumbar spine procedures. She states she also has a left scapular fracture and rib fractures. Old fractures are pathologic related to cancer with metastatic disease. She had previously received all her care at [facility] and now switch to Dr. Ordonez. She was last admitted from her facility June 16 to June 19 secondary to hypercalcemia secondary to metastatic disease to the bone, she was seen by Dr. Mccormick that time, she received IM calcitonin, and Zometa 4 mg IV, calcium on the last admission was 14.9, on discharge She'll level was 7.2. Patient came into [facility] emergency center for evaluation. secondary to abdominal pain of 1 week, nausea vomiting of one week, she is was found to have a calcium level of 18, creatinine is also worsening, currently at 1.78 on admission, discharge creatinine was 0.55, June 20. Lipase was elevated at 3253, liver function tests elevated including alkaline Lilly, 203. She has known history of cholecystectomy with sphincterotomy in the past. She does have chronic pain, we are going to continue on the OxyContin 20 mg every 12 hours, IV Dilaudid, consult were made with Dr. Velasquez gastrology for pancreatitis, consult with Dr. Corbett, and Dr. Mccormick for severe critical hypercalcemia. We'll going to add additional infusion of IV pamidronate, for a total of 90 mg 1 dose today. IV hydration, IV Lasix 40 mg twice a day, 08/09: Per nursing staff patient had increased confusion and competitive through the night. Patient continues to have confusion unable to answer questions appropriately. At times she will make sense and then rambles on and jumps subject while interviewing. Patient is reluctant to go to subacute rehab facility she is afraid this will mess with her rehab days for the week. Patient is complaining of generalized pain that has increased. Patient is requesting to go home and receive therapy at home. Discussed with patient that she is not able to walk or hold cups that she would not be able to stay home to receive therapy. Patient requires more intense therapy. 08/10: At midnight, A-Team was called as patient had a hemoglobin of 6.7 and EKG was A. fib with RVR. Patient reported palpitations but denied any difficulty breathing. Patient was transferred to ICU. Cardizem drip was ordered but patient did not require. Patient was transfused 1 unit of packed RBCs and during transport from [facility] ICU, cardiac rhythm converted to sinus rhythm. No anticoagulation per oncology due to low platelet count. Patient has been seen by cardiology with recommendations for metoprolol tartrate 50 mg 3 times daily. The patient is eating very little. She is scheduled [place] of [place]. [place] 2729, CEA ordered by oncology is pending. The plan to resume chemotherapy following discharge from the hospital. Patient has been afebrile, blood pressure 137/69, pulse ox 92% on 2 L nasal cannula. Repeat lab work this morning reveals hemoglobin of 9.1, WBC 6.3, platelet count 45, BUN 51 and cre atinine 2.05. Ionized calcium 6.7. AST 130, ALT 75, alkaline phosphatase 180. Review of systems Constitutional: Reports anorexia, Reports chronic pain, Reports lethargy, Reports malaise, Reports poor appetite Ears, nose, mouth and throat: Denies ant. neck pain, Denies bleeding gums, Denies dental pain, Denies dysphagia, Denies epistaxis, Denies headache, Denies hoarseness, Denies mouth pain, Denies nasal congestion, Denies nasal discharge, Denies neck fullness/pressure, Denies neck lump, Denies nose pain, Denies odynophagia, Denies post-nasal drip, Denies sinus pain, Denies sinus pressure, Denies swelling in mouth, Denies swelling in throat, Denies sore throat, Denies vertigo, Denies voice changes Cardiovascular: Denies chest pain, Denies claudication, Denies decreased exercise tolerance, Denies dyspnea on exertion, Denies edema, Denies high blood pressure, Denies irregular heart beat, Denies leg edema, Denies lightheadedness, Denies orthopnea, Denies palpitations, Denies paroxysmal nocturnal dyspnea, Denies phlebitis, Denies rapid heart beat, Denies shortness of breath, Denies syncope Respiratory: Denies congestion, Denies cough, Denies cough with sputum, Denies dyspnea, Denies excessive sputum, Denies hemoptysis, Denies home oxygen, Denies pain, Denies pain on inspiration, Denies pleurisy, Denies respiratory infections, Denies sleep apnea, Denies snoring, Denies wheezing Gastrointestinal: Reports abdominal pain, Reports dyspepsia, Reports early satiety, Reports loss of appetite, Reports nausea, Reports vomiting Genitourinary: Denies urinary retention Musculoskeletal: Reports gait dysfunction, Reports limitation of motion, Denies arm numbness/tingling, Denies atrophy, Denies fractures, Denies frequent falls, Denies hot joints, Denies leg numbness/tingling, Denies loss of height, Denies low back pain, Denies morning stiffness, Denies muscle cramps, Denies muscle weakness, Denies myalgias, Denies neck pain, Denies neck stiffness, Denies prior amputations, Denies redness of joints, Denies shooting arm pain, Denies shooting leg pain Integumentary: No rashes, no wounds Neurological: Reports memory loss Psychiatric: Denies anhedonia, Denies anxiety, Denies anxiety attacks, Denies change in appetite, Denies change in libido, Denies change in sleep habits, Den ies confusion, Denies depression, Denies difficulty concentrating, Denies disorientation, Denies hallucinations, Denies hopelessness, Denies hypersomnia, Denies insomnia, Denies irritability, Denies memory loss, Denies mood swings, Denies paranoia, Denies sadness/tearfulness, Denies sleep disturbances, Denies suicidal ideation Allergic/Immunologic: Denies allergic rhinitis, Denies anaphylaxis, Denies angioedema, Denies gluten intolerance, Denies persistent infections, Denies seasonal allergies, Denies urticaria, Denies wheezing Objective - Vital Signs Vital signs: Vital Signs Temp 97.8 F 08/10/19 12:00 Pulse 95 08/10/19 12:00 Resp 16 08/10/19 12:00 BP 137/69 08/10/19 12:00 Pulse Ox 92 L 08/10/19 12:00 Intake & Output 08/09/19 08/10/19 08/10/19 18:59 06:59 18:59 Intake Total 1680 910 Output Total 1400 360 Balance 280 550 Weight 76.8 kg Intake: IV 400 Sodium Chloride 0.9% 1, 400 000 ml @ 100 mls/hr IV . Q10H CARLOS Rx#:[id number] Intake, IV Titration 1200 200 Amount Sodium Chloride 0.9% 1, 1200 200 000 ml @ 100 mls/hr IV . Q10H CARLOS Rx#:[id number] Oral 480 Blood Product 310 Rc As-1 Unit 310 [id number] Output: Urine 1400 360 Other: Voiding Method Indwelling Catheter Indwelling Catheter Indwelling Catheter # Voids 1 - Exam General Appearance: Alert, cooperative at times, no distress, appears stated age. Neck HEENT: Supple, no lymphadenopathy, no thyroid enlargement, no carotid bruits. Lungs: Clear to auscultation without crackles or wheezes no rhonchi, no deformity. Chest Wall: Chest wall normal expansion with deep inspiration no tenderness and no deformity was found on exam, no costochondral pain or discomfort. Heart: Regular rate and rhythm, S1, S2 normal, no murmur, rub or gallop. Back: Symmetric, no curvature, ROM normal, no CVA tenderness. Abdomen: Soft, non-tender, no rebound or rigidity, no hepatosplenomegaly. Extremities: Extremities normal, atraumatic, no cyanosis or edema. Strength equal bilaterally Pulses: 2+ and symmetric. Skin: Skin color, texture, tugor normal, no rashes or lesions. Neurologic: Alert oriented x2, noted confusion, rambling cranial nerves II through XII intact, no motor deficit, generalized weakness - Labs CBC & Chem 7: 08/10/19 04:38 08/10/19 04:38 Labs: Abnormal Lab Results - Last 24 Hours (Table) 0108/09/19 08/09/19 Range/Units 20:03 07:18 17:35 WBC 3.5 L 3.4 L (3.8-10.6) k/uL RBC 2.17 L (3.80-5.40) m/uL Hgb 6.7 L* (11.4-16.0) gm/dL Hct 21.1 L (34.0-46.0) % RDW 20.0 H (11.5-15.5) % Plt Count 40 L (150-450) k/uL Lymphocytes # (Manual) 0.56 L 0.61 L (1.0-4.8) k/uL Metamyelocytes # (Man) 0.10 H 0.07 H 0.07 H (0) k/uL Myelocytes # (Manual) 0.15 H 0.14 H (0) k/uL Nucleated RBCs 65 H 46 H (0-0) /100 WBC Chloride (98-107) mmol/L BUN (7-17) mg/dL Creatinine (0.52-1.04) mg/dL Glucose (74-99) mg/dL POC Glucose (mg/dL) (75-99) mg/dL Calcium (8.4-10.2) mg/dL Ionized Calcium Radha (4.5-5.3) mg/dL Ferritin (10.0-291.0) ng/mL AST (14-36) U/L ALT (4-34) U/L Alkaline Phosphatase (38-126) U/L Total Protein (6.3-8.2) g/dL Albumin (3.5-5.0) g/dL Crossmatch 08/09/19 08/09/19 08/09/19 Range/Units 19:29 19:29 23:55 WBC (3.8-10.6) k/uL RBC (3.80-5.40) m/uL Hgb (11.4-16.0) gm/dL Hct (34.0-46.0) % RDW (11.5-15.5) % Plt Count (150-450) k/uL Lymphocytes # (Manual) (1.0-4.8) k/uL Metamyelocytes # (Man) (0) k/uL Myelocytes # (Manual) (0) k/uL Nucleated RBCs (0-0) /100 WBC Chloride (98-107) mmol/L BUN (7-17) mg/dL Creatinine (0.52-1.04) mg/dL Glucose (74-99) mg/dL POC Glucose (mg/dL) 119 H (75-99) mg/dL Calcium (8.4-10.2) mg/dL Ionized Calcium Radha (4.5-5.3) mg/dL Ferritin 3969.3 H (10.0-291.0) ng/mL AST (14-36) U/L ALT (4-34) U/L Alkaline Phosphatase (38-126) U/L Total Protein (6.3-8.2) g/dL Albumin (3.5-5.0) g/dL Crossmatch See Detail 08/10/19 08/10/19 Range/Units 04:38 04:38 WBC (3.8-10.6) k/uL RBC 2.88 L (3.80-5.40) m/uL Hgb 9.1 L D (11.4-16.0) gm/dL Hct 27.2 L (34.0-46.0) % RDW 19.5 H (11.5-15.5) % Plt Count 45 L (150-450) k/uL Lymphocytes # (Manual) (1.0-4.8) k/uL Metamyelocytes # (Man) (0) k/uL Myelocytes # (Manual) (0) k/uL Nucleated RBCs (0-0) /100 WBC Chloride 108 H (98-107) mmol/L BUN 51 H (7-17) mg/dL Creatinine 2.05 H (0.52-1.04) mg/dL Glucose 150 H (74-99) mg/dL POC Glucose (mg/dL) (75-99) mg/dL Calcium 11.4 H (8.4-10.2) mg/dL Ionized Calcium Radha 6.7 H* (4.5-5.3) mg/dL Ferritin (10.0-291.0) ng/mL AST 130 H (14-36) U/L ALT 75 H (4-34) U/L Alkaline Phosphatase 180 H (38-126) U/L Total Protein 6.0 L (6.3-8.2) g/dL Albumin 3.1 L (3.5-5.0) g/dL Crossmatch Assessment and Plan Plan: 1. Critical Hypercalcemia secondary to malignancy with metastatic disease to the bone. Nephrology consult appreciated. IV fluids 100 mL per hour, pamidronate IV, 19 mg 1 dose, discontinue vitamin D. Electrophoresis studies negative. Appropriately suppressed PTH from previous workup, consult with Dr. Mccormick reviewed and appreciated, oncology consult appreciated. Discontinue Lasix, discontinue potassium supplement, status post calcitonin. 2. Acute pancreatitis, most likely secondary to hypercalcemia, prior history of cholecystectomy with sphincterotomy, obtain abdominal ultrasound, which is negative for common bile duct outpatient. Full liquid diet, protein supplements. 3. Pancytopenia with Breast cancer with bone metastasis status post multiple surgical interventions. Oncology consult appreciated. 4. Paroxysmal atrial fibrillation with episode of A. fib with RVR. Patient didn't not require IV Cardizem. Continue Lopressor 50 mg 3 times daily, Xarelto on hold due to low platelet count. Cardiology consult appreciated. 5. Acute renal failure secondary to ATN with underlying chronic kidney disease stage I, IV fluids for hydration, 6. Hypothyroidism. Continue levothyroxine 176 g daily. 5. Gastroesophageal reflux disease and GI prophylaxis. Continue Protonix. 7. Chronic pain syndrome. Continue Voltaren gel, Robaxin 750 mg every 6 hours as needed, OxyContin 30 mg extended release every 12 hours, oxycodone 10 mg every 4 hours as needed. 8 Transaminitis, acute, possibly possibly related to COATES, alkaline phosphatase elevations also noted most likely secondary to bone metastases, doubt obstructive etiology, cant r/o other itioloty include liver med 9 History of thyroid cancer. 10. Generalized anxiety disorder. Continue Xanax or 0.5 mg 4 times daily as needed. 11. Increased confusion possibly metastases to brain. MRI without contrast ordered 12. Acute anemia secondary to underlying breast cancer and chemotherapy status post transfusion of 1 unit of RBCs. DVT prophylaxis GI prophylaxis Protonix Discharge plan: Return home with [facility] Impression and plan of care have been directed as dictated by the signing physician. Elayne Ambrosio nurse practitioner acting as scribe for signing physician.
--- NOTE | 2019-08-10 15:19 | PN ---
PROGRESS NOTE Patient is seen for followup for acute kidney injury and hypercalcemia. Serum calcium level has been improving. Creatinine has also improved down to 2.0 from 2.3 mg/dL. PHYSICAL EXAMINATION: This morning patient was anxious. She is not in any acute distress. She was awake. Blood pressure was 143/93, heart rate 93 per minute, patient is afebrile. Examination of the heart S1, S2. Examination of the lungs, decreased breath sounds bases. ABDOMEN: Soft, non-tender. Examination of lower extremities shows no significant edema. BOMB TECHNICIAN exam shows patient moving all 4 extremities. LABS: Show sodium 138, potassium 3.7, chloride 108, CO2 is 23. BUN 51, creatinine 2.0, ionized serum calcium 6.7. Total calcium was 11.4. ASSESSMENT: 1. Acute kidney injury, ATN and from hypercalcemia, currently improving. The patient is maintained on IV fluids which I will continue. 2. Hypercalcemia secondary to bony metastasis from underlying malignancy which is breast cancer, status post pamidronate, currently improving. 3. Metastatic breast cancer with METS to the bone. 4. Pancytopenia secondary to chemotherapy. No active bleeding noted, status post packed RBCs. PLAN: Continue IV fluids, repeat labs in a.m. MMODL / IJN: [id number] /
[2019-08-10] MEDS: SODIUM CHLORIDE 0.9% 1,000 ML IV SCH ×2 (16:24→20:17)
[2019-08-10] MEDS ORDERED: DIAZEPAM 5 MG/ML 2 ML INJ IVP STA (16:42)
--- NOTE | 2019-08-10 18:51 | MR ---
EXAMINATION TYPE: MR brain wo/w con DATE OF EXAM: 08/10/2019 COMPARISON: None HISTORY: Breast ca r/o brain mets weakness left arm CONTRAST: Standard multiplanar, multisequence MRI departmental protocol utilizing 7 mL intravenous Gadavist beverly olinium contrast. Ventricles have normal size. There is no mass effect nor midline shift. There is no sign of intracran ial hemorrhage. Brainstem is intact. There is no evidence of a cortical infarct. There is numerous foci of pathologic enhancement within the diploic space of the calvarium. There is diffuse thickening of the meninges with pathologic enhancement. There is normal contrast enh ancement of the venous sinuses. IMPRESSION: Diffuse meningeal enhancement suggestive of metastatic disease. No evidence of intra-axial metastatic disease. Extensive calvarial enhancing lesions consistent with osseous metastatic disease.
--- NOTE | 2019-08-10 20:47 | P.PN ---
Subjective Progress Note Date: 08/10/19 Principal diagnosis: Acute uncomplicated pancreatitis Patient seen lying in bed, still reporting some abdominal pain but overall improved. No nausea or vomiting. Tolerating her diet. Objective - Vital Signs Vital signs: Vital Signs Temp 97.5 F L 08/10/19 20:00 Pulse 94 08/10/19 20:00 Resp 17 08/10/19 20:00 BP 139/74 08/10/19 20:00 Pulse Ox 95 08/10/19 20:00 Intake & Output 08/10/19 08/10/19 08/11/19 06:59 18:59 06:59 Intake Total 910 1440 Output Total 360 450 Balance 550 990 Weight 76.8 kg Intake: IV 400 1200 Sodium Chloride 0.9% 1, 400 1200 000 ml @ 100 mls/hr IV . Q10H CARLOS Rx#:[id number] Intake, IV Titration 200 Amount Sodium Chloride 0.9% 1, 200 000 ml @ 100 mls/hr IV . Q10H CARLOS Rx#:[id number] Oral 240 Blood Product 310 Rc As-1 Unit 310 [id number] Output: Urine 360 450 Other: Voiding Method Indwelling Catheter Indwelling Catheter Indwelling Catheter - Labs CBC & Chem 7: 08/10/19 04:38 08/10/19 04:38 Labs: Abnormal Lab Results - Last 24 Hours (Table) 08/07/19 08/09/19 08/09/19 Range/Units 20:03 19:29 19:29 RBC (3.80-5.40) m/uL Hgb (11.4-16.0) gm/dL Hct (34.0-46.0) % RDW (11.5-15.5) % Plt Count (150-450) k/uL Metamyelocytes # (Man) 0.10 H (0) k/uL Myelocytes # (Manual) 0.15 H (0) k/uL Chloride (98-107) mmol/L BUN (7-17) mg/dL Creatinine (0.52-1.04) mg/dL Glucose (74-99) mg/dL POC Glucose (mg/dL) (75-99) mg/dL Calcium (8.4-10.2) mg/dL Ionized Calcium Radha (4.5-5.3) mg/dL Ferritin 3969.3 H (10.0-291.0) ng/mL AST (14-36) U/L ALT (4-34) U/L Alkaline Phosphatase (38-126) U/L Total Protein (6.3-8.2) g/dL Albumin (3.5-5.0) g/dL Crossmatch See Detail 08/09/19 08/10/19 08/10/19 Range/Units 23:55 04:38 04:38 RBC 2.88 L (3.80-5.40) m/uL Hgb 9.1 L D (11.4-16.0) gm/dL Hct 27.2 L (34.0-46.0) % RDW 19.5 H (11.5-15.5) % Plt Count 45 L (150-450) k/uL Metamyelocytes # (Man) (0) k/uL Myelocytes # (Manual) (0) k/uL Chloride 108 H (98-107) mmol/L BUN 51 H (7-17) mg/dL Creatinine 2.05 H (0.52-1.04) mg/dL Glucose 150 H (74-99) mg/dL POC Glucose (mg/dL) 119 H (75-99) mg/dL Calcium 11.4 H (8.4-10.2) mg/dL Ionized Calcium Radha 6.7 H* (4.5-5.3) mg/dL Ferritin (10.0-291.0) ng/mL AST 130 H (14-36) U/L ALT 75 H (4-34) U/L Alkaline Phosphatase 180 H (38-126) U/L Total Protein 6.0 L (6.3-8.2) g/dL Albumin 3.1 L (3.5-5.0) g/dL Crossmatch Assessment and Plan (1) Pancreatitis Narrative/Plan: Acute uncomplicated pancreatitis likely secondary to hypercalcemia in the setting of metastatic breast cancer. Currently abdominal pain and labs improving. Patient tolerating her diet. Current Visit: Yes Status: Acute Code(s): K85.90 - ACUTE PANCREATITIS WITHOUT NECROSIS OR INFECTION, UNSP SNOMED Code(s): 57476389 (2) Hypercalcemia Current Visit: Yes Status: Acute Priority: High Code(s): E83.52 - HYPERCALCEMIA SNOMED Code(s): 14696149 (3) Metastatic breast cancer Current Visit: Yes Status: Chronic Priority: High Code(s): C50.919 - MALIGNANT NEOPLASM OF UNSP SITE OF UNSPECIFIED FEMALE BREAST SNOMED Code(s): 096630407 Plan: Okay for diet Continue supportive care Continue fluid hydration Continue correction of electrolytes Other medical management per primary team and oncology service thank you for allowing us to participate in , the GI service will see him by,please call us with any questions or concerns
[2019-08-11] MEDS: HYDROmorphone 0.5 MG/0.5 ML SYRINGE IVP PRN ×3 (02:47→23:23)
[2019-08-11 05:17] LABS: Anisocytosis Slight; HCT 25.9 % (34.0-46.0); HGB 8.5 gm/dL (11.4-16.0); Hypochromasia Slight; MCH 30.4 pg (25.0-35.0); MCHC 32.8 g/dL (31.0-37.0); MCV 92.7 fL (80.0-100.0); Macrocytosis Slight; Mean Platelet Volume 9.5; Poikilocytosis Slight; RBC 2.79 m/uL (3.80-5.40); RDW 19.6 % (11.5-15.5); WBC 6.3 k/uL (3.8-10.6)
[2019-08-11 05:22] LABS: Ionized Calcium 5.8 mg/dL (4.5-5.3)
[2019-08-11 05:27] LABS: Platelet Count 38 k/uL (150-450)
[2019-08-11 05:30] LABS: Calcium 9.8 mg/dL (8.4-10.2)
[2019-08-11] MEDS: PANTOPRAZOLE 40 MG TABLET PO SCH (07:41)
[2019-08-11] MEDS: LEVOTHYROXINE 88 MCG TAB PO SCH (07:41)
[2019-08-11] MEDS: POTASSIUM CHLORIDE ER 20 MEQ TAB.ER PO SCH ×2 (07:41→09:43)
[2019-08-11] MEDS: SODIUM CHLORIDE 0.9% 1,000 ML IV SCH ×2 (07:48→20:52)
[2019-08-11] MEDS: oxyCODONE ER 15 MG TAB.ER.12H PO SCH ×2 (08:00→20:48)
[2019-08-11] MEDS: METOPROLOL TARTRATE 50 MG TAB PO SCH ×3 (08:01→20:48)
--- NOTE | 2019-08-11 08:40 | PN ---
PROGRESS NOTE Mrs. Godinez is a lady with breast cancer, bone metastasis with hypercalcemia, also has paroxysmal atrial fib. I am seeing her for atrial fib. Her rhythm is now in sinus. She is off the Cardizem drip. She is not on any anticoagulation. She is hemodynamically stable, but totally confused and recent CAT scan suggests that there is evidence of brain mets as well. Overall prognosis for this lady is poor. She is hemodynamically stable. S1-S2 heard normally, short systolic murmur noted. Lungs reveal diminished air entry. Abdomen and lower extremity exam is unchanged. Central nervous system examination was not performed. IMPRESSION: 1. Metastatic breast cancer with bone metastasis and now with brain metastasis. 2. Paroxysmal atrial fibrillation, now in sinus rhythm. 3. Hypertension. RECOMMENDATIONS: From a cardiac standpoint, I would recommend to continue current medications. No other intervention necessary. We will continue to see her as needed. MMODL / IJN: [id number] /
[2019-08-11 10:53] VITALS: BMI 29.7
[2019-08-11 11:15] LABS: INR 1.3 (<1.2)
[2019-08-11 11:41] LABS: Partial Thromboplastin Time 21.4 sec (22.0-30.0)
--- NOTE | 2019-08-11 12:15 | PN ---
PROGRESS NOTE Patient is seen for followup for acute kidney injury and hypercalcemia. Her renal function has improved. Creatinine is down to 1.4 today and calcium is down to 9.8. The patient is maintained on IV fluids. She is trying to eat as well. PHYSICAL EXAMINATION: On examination, blood pressure 165/91, heart rate 83 per minute. Patient is afebrile. EXAMINATION OF THE HEART: S1, S2. EXAMINATION OF THE LUNGS: Bilateral breath sounds are heard. ABDOMEN: Soft, nontender. Examination of lower extremities shows no significant edema. DATABASE SPECIALIST EXAM: Grossly intact. LABS: Labs show sodium 140, potassium 3.0, chloride 109, BUN 51, creatinine 1.54, hemoglobin 8.5 g/dL. ASSESSMENT: 1. Acute kidney injury secondary to hypercalcemia and acute tubular necrosis, currently improved. I will decrease the IV fluids to about 60 mL an hour. Patient is encouraged to increase oral intake as well. 2. Hypokalemia associated with decreased oral intake and urinary losses as well. Continue to replace. 3. Hypercalcemia from bony metastasis from breast cancer, status post Pamidronate, currently improving. PLAN: Decrease IV fluids to about 60 mL an hour. Repeat labs in a.m. MMODL / IJN: [id number] /
[2019-08-11] MEDS: ONDANSETRON 4 MG/2 ML VIAL IVP PRN ×2 (13:53→22:30)
--- NOTE | 2019-08-11 14:20 | P.PN ---
Subjective Progress Note Date: 08/11/19 This is a 58-year-old female patient of Micheal Nielsen NP with past medical history of breast cancer status post lumpectomy in 2010 with recurrence of invasive ductal carcinoma stage III grade IIIa with lumpectomy July 2013 with bone metastasis and multiple pathologic compression fractures. Status post cervical fusion, right femur nail and titanium joaquín all positive for cancer in December 2018, kyphoplasty L3 followed by kyphoplasty T12, L1, L5-S1 with radiofrequency ablation April 2019, history of thyroid cancer status post lobectomy and radiation therapy, chronic atrial fibrillation status post ablation on Xarelto, hypothyroidism, chronic pain syndrome, gastroesophageal reflux disease, generalized anxiety disorder. Patient's last chemotherapy was performed on 05/13/2019. Last radiation to the cervical, right femur and lumbar areas completed on 02/20/2019. PET scan on 06/06/2019 revealed osseous metastatic disease. Patient has [facility] care in place. Patient states that she was at from May 21 through the June 02 at which time she underwent lumbar spine procedures. She states she also has a left scapular fracture and rib fractures. Old fractures are pathologic related to cancer with metastatic disease. She had previously received all her care at and now switch to Dr. Ordonez. She was last admitted from her facility June 16 to June 19 secondary to hypercalcemia secondary to metastatic disease to the bone, she was seen by Dr. Mccormick that time, she received IM calcitonin, and Zometa 4 mg IV, calcium on the last admission was 14.9, on discharge She'll level was 7.2. Patient came into [facility] emergency center for evaluation. secondary to abdominal pain of 1 week, nausea vomiting of one week, she is was found to have a calcium level of 18, creatinine is also worsening, currently at 1.78 on admission, discharge creatinine was 0.55, June 20. Lipase was elevated at 3253, liver function tests elevated including alkaline Lilly, 203. She has known history of cholecystectomy with sphincterotomy in the past. She does have chronic pain, we are going to continue on the OxyContin 20 mg every 12 hours, IV Dilaudid, consult were made with Dr. Velasquez gastrology for pancreatitis, consult with Dr. Corbett, and Dr. Mccormick for severe critical hypercalcemia. We'll going to add additional infusion of IV pamidronate, for a total of 90 mg 1 dose today. IV hydration, IV Lasix 40 mg twice a day, 08/09: Per nursing staff patient had increased confusion and competitive through the night. Patient continues to have confusion unable to answer questions appropriately. At times she will make sense and then rambles on and jumps subject while interviewing. Patient is reluctant to go to subacute rehab facility she is afraid this will mess with her rehab days for the week. Patient is complaining of generalized pain that has increased. Patient is requesting to go home and receive therapy at home. Discussed with patient that she is not able to walk or hold cups that she would not be able to stay home to receive therapy. Patient requires more intense therapy. 08/10: At midnight, A-Team was called as patient had a hemoglobin of 6.7 and EKG was A. fib with RVR. Patient reported palpitations but denied any difficulty breathing. Patient was transferred to ICU. Cardizem drip was ordered but patient did not require. Patient was transfused 1 unit of packed RBCs and during transport from [facility] ICU, cardiac rhythm converted to sinus rhythm. No anticoagulation per oncology due to low platelet count. Patient has been seen by cardiology with recommendations for metoprolol tartrate 50 mg 3 times daily. The patient is eating very little. She is scheduled [place] of [place]. [place] 2729, CEA ordered by oncology is pending. The plan to resume chemotherapy following discharge from the hospital. Patient has been afebrile, blood pressure 137/69, pulse ox 92% on 2 L nasal cannula. Repeat lab work this morning reveals hemoglobin of 9.1, WBC 6.3, platelet count 45, BUN 51 and cre atinine 2.05. Ionized calcium 6.7. AST 130, ALT 75, alkaline phosphatase 180. 08/11: MRI of the brain revealed diffuse meningeal enhancement suggestive of metastatic disease. No evidence of intra-axial metastatic disease. Extensive calvarial enhancing lesions consistent with osseous metastatic disease. At this time, patient is to decide whether she wants to proceed with open PE at which she would require treatment at [facility] and appears to not be a candidate for this. Patient family state that she would be unable to be transported down there. Other option is for hospice care. Patient wishes to discuss with her son. Other family members including are at the bed side. IV fluids have been decreased to 60 mL/h per Dr. Enriquez. Cardiology recommends continuing current medications and will follow on an as-needed basis. Dr. Stephenson has cleared the patient for diet and has signed off. Patient has been afebrile, heart rate 83, blood pressure 165/91, respiratory rate 26, pulse ox 94% on 2 L nasal cannula. Potassium 3.0, chloride 109, BUN 51, creatinine 1.54, hemoglobin 8.5, platelet count 38, INR 1.3, PTT 21.4, fibrinogen 557. Dulcolax studies are elevated. Review of systems Constitutional: Reports anorexia, Reports chronic pain, Reports lethargy, Repo rts malaise, Reports poor appetite Ears, nose, mouth and throat: Denies ant. neck pain, Denies bleeding gums, Denies dental pain, Denies dysphagia, Denies epistaxis, Denies headache, Denies hoarseness, Denies mouth pain, Denies nasal congestion, Denies nasal discharge, Denies neck fullness/pressure, Denies neck lump, Denies nose pain, Denies odynophagia, Denies post-nasal drip, Denies sinus pain, Denies sinus pressure, Denies swelling in mouth, Denies swelling in throat, Denies sore throat, Denies vertigo, Denies voice changes Cardiovascular: Denies chest pain, Denies claudication, Denies decreased exercise tolerance, Denies dyspnea on exertion, Denies edema, Denies high blood pressure, Denies irregular heart beat, Denies leg edema, Denies lightheadedness, Denies orthopnea, Denies palpitations, Denies paroxysmal nocturnal dyspnea, Denies phlebitis, Denies rapid heart beat, Denies shortness of breath, Denies syncope Respiratory: Denies congestion, Denies cough, Denies cough with sputum, Denies dyspnea, Denies excessive sputum, Denies hemoptysis, Denies home oxygen, Denies pain, Denies pain on inspiration, Denies pleurisy, Denies respiratory infections, Denies sleep apnea, Denies snoring, Denies wheezing Gastrointestinal: Reports abdominal pain, Reports dyspepsia, Reports early sa tiety, Reports loss of appetite, Reports nausea, Reports vomiting Genitourinary: Denies urinary retention Musculoskeletal: Reports gait dysfunction, Reports limitation of motion, Denies arm numbness/tingling, Denies atrophy, Denies fractures, Denies frequent falls, Denies hot joints, Denies leg numbness/tingling, Denies loss of height, Denies low back pain, Denies morning stiffness, Denies muscle cramps, Denies muscle weakness, Denies myalgias, Denies neck pain, Denies neck stiffness, Denies prior amputations, Denies redness of joints, Denies shooting arm pain, Denies shooting leg pain Integumentary: No rashes, no wounds Neurological: Reports memory loss, reports generalized weakness Psychiatric: Denies anhedonia, Denies anxiety, Denies anxiety attacks, Denies change in appetite, Denies change in libido, Denies change in sleep habits, Denies confusion, Denies depression, Denies difficulty concentrating, Denies disorientation, Denies hallucinations, Denies hopelessness, Denies hypersomnia, Denies insomnia, Denies irritability, Denies memory loss, Denies mood swings, Denies paranoia, Denies sadness/tearfulness, Denies sleep disturbances, Denies suicidal ideation Allergic/Immunologic: Denies allergic rhinitis, Denies anaphylaxis, Denies angioedema, Denies gluten intolerance, Denies persistent infections, Denies seasonal allergies, Denies urticaria, Denies wheezing Objective - Vital Signs Vital signs: Vital Signs Temp 97.5 F L 08/11/19 08:00 Pulse 83 08/11/19 09:00 Resp 26 H 08/11/19 09:00 BP 165/91 08/11/19 09:00 Pulse Ox 94 L 08/11/19 10:06 Intake & Output 08/10/19 08/11/19 08/11/19 18:59 06:59 18:59 Intake Total 1440 1600 Output Total 450 540 Balance 990 1060 Weight 80.9 kg 80.9 kg Intake: IV 1200 1600 Sodium Chloride 0.9% 1, 1200 1600 000 ml @ 100 mls/hr IV . Q10H [facility] Rx#:[id number] Oral 240 Output: Urine 450 540 Other: Voiding Method Indwelling Catheter Indwelling Catheter Indwelling Catheter - Exam General Appearance: Alert, cooperative at times, no distress, appears stated age. , [id number] at bedside. Neck HEENT: Supple, no lymphadenopathy, no thyroid enlargement, no carotid bruits. Lungs: Clear to auscultation without crackles or wheezes no rhonchi, no deformity. Chest Wall: Chest wall normal expansion with deep inspiration. Heart: Regular rate and rhythm, S1, S2 normal, no murmur, rub or gallop. Back: Symmetric, no curvature, ROM normal, no CVA tenderness. Abdomen: Soft, non-tender, no rebound or rigidity, no hepatosplenomegaly. Extremities: Extremities normal, atraumatic, no cyanosis or edema. Strength equal bilaterally Pulses: 2+ and symmetric. Skin: Skin color, texture, tugor normal, no rashes or lesions. Neurologic: Alert oriented x2, noted confusion, rambling cranial nerves II through XII intact, no motor deficit, generalized weakness - Labs CBC & Chem 7: 08/11/19 04:43 08/11/19 04:43 Labs: Abnormal Lab Results - Last 24 Hours (Table) 08/10/19 08/10/19 08/11/19 Range/Units 04:38 04:38 04:43 RBC 2.79 L (3.80-5.40) m/uL Hgb 8.5 L (11.4-16.0) gm/dL Hct 25.9 L (34.0-46.0) % RDW 19.6 H (11.5-15.5) % Plt Count 38 L (150-450) k/uL PT (9.0-12.0) sec INR (<1.2) APTT (22.0-30.0) sec Fibrinogen (200-500) mg/dL Potassium (3.5-5.1) mmol/L Chloride (98-107) mmol/L BUN (7-17) mg/dL Creatinine (0.52-1.04) mg/dL Glucose (74-99) mg/dL Ionized Calcium Radha (4.5-5.3) mg/dL CA 15-3 Antigen 584.7 H (0.0-32.3) U/mL CA 27-29 626.0 H (0.0-38.5) U/mL 08/11/19 08/11/19 Range/Units 04:43 09:53 RBC (3.80-5.40) m/uL Hgb (11.4-16.0) gm/dL Hct (34.0-46.0) % RDW (11.5-15.5) % Plt Count (150-450) k/uL PT 13.0 H (9.0-12.0) sec INR 1.3 H (<1.2) APTT 21.4 L (22.0-30.0) sec Fibrinogen 557 H (200-500) mg/dL Potassium 3.0 L (3.5-5.1) mmol/L Chloride 109 H (98-107) mmol/L BUN 51 H (7-17) mg/dL Creatinine 1.54 H (0.52-1.04) mg/dL Glucose 124 H (74-99) mg/dL Ionized Calcium Radha 5.8 H (4.5-5.3) mg/dL CA 15-3 Antigen (0.0-32.3) U/mL CA 27-29 (0.0-38.5) U/mL Assessment and Plan Plan: 1. Critical Hypercalcemia secondary to breast cancer with metastatic disease to the bone. Nephrology consult appreciated. IV fluids 100 mL per hour, pamidronate IV, 19 mg 1 dose, discontinue vitamin D. Electrophoresis studies negative. Appropriately suppressed PTH from previous workup, consult with Dr. Mccormick reviewed and appreciated, oncology consult appreciated. Discontinue Lasix, discontinue potassium supplement, status post calcitonin. 2. Breast cancer with metastatic disease to the bone, brain. Patient has been given the option of LP puncture for further evaluation but understanding that she would have to seek treatment at [facility]. This does not sound like an option for her. She is contemplating hospice care at this point. 3. Acute pancreatitis, most likely secondary to hypercalcemia, prior history of cholecystectomy with sphincterotomy, obtain abdominal ultrasound, which is negative for common bile duct outpatient. Full liquid diet, protein supplements. 4. Pancytopenia with Breast cancer with bone metastasis status post multiple surgical interventions. Oncology consult appreciated. 5. Paroxysmal atrial fibrillation with episode of A. fib with RVR. Patient didn't not require IV Cardizem. Continue Lopressor 50 mg 3 times daily, Xarelto on hold due to low platelet count. Cardiology consult appreciated. 6. Acute renal failure secondary to ATN with underlying chronic kidney disease stage I, IV fluids for hydration, 7. Hypothyroidism. Continue levothyroxine 176 g daily. 8. Gastroesophageal reflux disease and GI prophylaxis. Continue Protonix. 9. Chronic pain syndrome. Continue Voltaren gel, Robaxin 750 mg every 6 hours as needed, OxyContin 30 mg extended release every 12 hours, oxycodone 10 mg every 4 hours as needed. 10 Transaminitis, acute, possibly possibly related to COATES, alkaline phosphatase elevations also noted most likely secondary to bone metastases, doubt obstructive etiology, cant r/o other itioloty include liver med 11. History of thyroid cancer. 12. Generalized anxiety disorder. Continue Xanax or 0.5 mg 4 times daily as needed. 13. Increased confusion possibly metastases to brain. MRI without contrast ordered 14. Acute anemia secondary to underlying breast cancer and chemotherapy status post transfusion of 1 unit of RBCs. DVT prophylaxis GI prophylaxis Protonix Discharge plan: Most likely patient will decide on hospice care Impression and plan of care have been directed as dictated by the signing physician. Elayne Ambrosio nurse practitioner acting as scribe for signing physician.
--- NOTE | 2019-08-11 16:57 | P.PN ---
Subjective Progress Note Date: 08/11/19 Principal diagnosis: MBC, hypercalcemia of malignancy In f/u today pt confusion is less then yesterday but, at times she can be scattered in her thoughts. Spoke with son, family member at bedside. Pt denied headache, dizziness, she feels very full, gas, no SOB. Objective - Vital Signs Vital signs: Vital Signs Temp 97.4 F L 08/11/19 12:00 Pulse 85 08/11/19 14:00 Resp 20 08/11/19 14:00 BP 153/87 08/11/19 14:00 Pulse Ox 96 08/11/19 14:00 Intake & Output 08/10/19 08/11/19 08/11/19 18:59 06:59 18:59 Intake Total 1440 1600 840 Output Total 450 540 250 Balance 990 1060 590 Weight 80.9 kg 80.9 kg Intake: IV 1200 1600 600 Sodium Chloride 0.9% 1, 1200 1600 600 000 ml @ 60 mls/hr IV . [id number] [facility] Rx#:[id number] Oral 240 240 Output: Urine 450 540 250 Other: Voiding Method Indwelling Catheter Indwelling Catheter Indwelling Catheter - Exam WN, frail, mild distress, alert and oriented to self, place, time and situation, she is expectantly anxious about MRI brain results, respirations are increased, mild trembling noted in extremities, anasarca - Labs CBC & Chem 7: 08/11/19 04:43 08/11/19 04:43 Labs: Abnormal Lab Results - Last 24 Hours (Table) 08/10/19 08/10/19 08/11/19 Range/Units 04:38 04:38 04:43 RBC 2.79 L (3.80-5.40) m/uL Hgb 8.5 L (11.4-16.0) gm/dL Hct 25.9 L (34.0-46.0) % RDW 19.6 H (11.5-15.5) % Plt Count 38 L (150-450) k/uL PT (9.0-12.0) sec INR (<1.2) APTT (22.0-30.0) sec Fibrinogen (200-500) mg/dL Potassium (3.5-5.1) mmol/L Chloride (98-107) mmol/L BUN (7-17) mg/dL Creatinine (0.52-1.04) mg/dL Glucose (74-99) mg/dL Ionized Calcium Radha (4.5-5.3) mg/dL CA 15-3 Antigen 584.7 H (0.0-32.3) U/mL CA 27-29 626.0 H (0.0-38.5) U/mL 08/11/19 08/11/19 Range/Units 04:43 09:53 RBC (3.80-5.40) m/uL Hgb (11.4-16.0) gm/dL Hct (34.0-46.0) % RDW (11.5-15.5) % Plt Count (150-450) k/uL PT 13.0 H (9.0-12.0) sec INR 1.3 H (<1.2) APTT 21.4 L (22.0-30.0) sec Fibrinogen 557 H (200-500) mg/dL Potassium 3.0 L (3.5-5.1) mmol/L Chloride 109 H (98-107) mmol/L BUN 51 H (7-17) mg/dL Creatinine 1.54 H (0.52-1.04) mg/dL Glucose 124 H (74-99) mg/dL Ionized Calcium Radha 5.8 H (4.5-5.3) mg/dL CA 15-3 Antigen (0.0-32.3) U/mL CA 27-29 (0.0-38.5) U/mL Assessment and Plan (1) Hypercalcemia Narrative/Plan: Pt has had several instances of hypercalcemia of malignancy. Calcitonin was given, gentle hydration. Ca++ normal today Current Visit: Yes Status: Acute Priority: High Code(s): E83.52 - HYPERCALCEMIA SNOMED Code(s): 76133737 (2) Bicytopenia Narrative/Plan: Secondary to treatment of breast cancer and marrow involvement with cancer Transfuse to keep Hgb 7 or higher, plt >10,000 unless symptomatic. WBC/ANC adequate at this time Current Visit: Yes Status: Acute Priority: High Code(s): D75.89 - OTHER SPECIFIED DISEASES OF BLOOD AND BLOOD-FORMING ORGANS SNOMED Code(s): 38568547 (3) Metastatic breast cancer Narrative/Plan: Mets to bone and bone marrow. Treatment with Ibrance/ faslodex and xgeva. Was due to start cycle on 07/30 but this was delayed due to pt c/o and significant hematological changes. Counts are currently stable. Tumor markers are elevated, no comparison Current Visit: Yes Status: Chronic Priority: High Code(s): C50.919 - MAL IGNANT NEOPLASM OF UNSP SITE OF UNSPECIFIED FEMALE BREAST SNOMED Code(s): 910570463 (4) A-fib Narrative/Plan: NSR on monitor at time of exam. 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 It was explained that LP with CSF cytology would need to be performed to confirm the diagnosis. Platelets would need to transfused until an adequate level is reached that was safe to perform LP. If positive, treatment would consist of ommya port placement and IT chemotherapy. If CSF negative, it would be considered non-diagnostic and another attempt would be necessary. If MOLD CLOSER HELPER + disease then it follows that pt has disease progression and systemic therapy would need to be changed, likely to parenteral type but, that is not absolute. We discussed treatment of symptoms only with hospice and allow natural . Pt will discuss with her son, final decisions will be made in the next 24 hours Assured pt that she would not be discharged until plan of care in place All questions answered to the best of my ability Time with Patient: Greater than 30 (>50% time spent counseling and coordinating, end of life discussion)
[2019-08-11] MEDS ORDERED: Magnesium Replacement Protocol 1 EACH MISC MISCELLANE PRN (21:49)
[2019-08-11] MEDS ORDERED: Potassium Replacement Protocol 1 EACH MISC MISCELLANE PRN (21:49)
[2019-08-11] MEDS: LORazepam 0.5 MG TAB PO PRN (23:28)
[2019-08-12 05:31] LABS: Calcium 9.7 mg/dL (8.4-10.2); Magnesium 1.5 mg/dL (1.6-2.3); Potassium 3.1 mmol/L (3.5-5.1)
[2019-08-12 05:35] LABS: Anisocytosis Slight; HCT 25.6 % (34.0-46.0); HGB 8.5 gm/dL (11.4-16.0); Hypochromasia Slight; MCH 30.7 pg (25.0-35.0); MCV 92.9 fL (80.0-100.0); Macrocytosis Slight; Mean Platelet Volume 9.8; Poikilocytosis Slight; RBC 2.76 m/uL (3.80-5.40); RDW 19.5 % (11.5-15.5)
[2019-08-12 05:39] LABS: Platelet Count 37 k/uL (150-450)
[2019-08-12 05:48] LABS: Ionized Calcium 6.2 mg/dL (4.5-5.3)
[2019-08-12] MEDS: MAGNESIUM SULFATE-D5W PMX 1 GM in DEXTROSE/WATER 1 100ML.BAG IVPB SCH ×2 (06:03→08:50)
[2019-08-12 06:18] LABS: Band Neutrophils % 2 %; Eosinophils # (M) 0.12 k/uL (0-0.7); Lymphocytes # (M) 1.04 k/uL (1.0-4.8); Monocytes # (M) 0.35 k/uL (0-1.0); Neutrophils % (M) 73 %; Nucleated Red Blood Cells 42 /100 WBC (0-0); Polychromasia Present; Total Cells Counted 200; WBC 5.8 k/uL (3.8-10.6)
[2019-08-12] MEDS: LEVOTHYROXINE 88 MCG TAB PO SCH (06:22)
[2019-08-12] MEDS: PANTOPRAZOLE 40 MG TABLET PO SCH (06:22)
[2019-08-12] MEDS: SODIUM CHLORIDE 0.9% 1,000 ML IV SCH (06:22)
[2019-08-12] MEDS: POTASSIUM BICARBONATE/CIT AC 20 MEQ TABLET.EFF NG-TUBE SCH ×2 (06:22→08:51)
[2019-08-12] MEDS: DOCUSATE 100 MG CAP PO PRN (06:33)
[2019-08-12 07:04] LABS: Glucose,Whole Blood 91 mg/dL (75-99)
[2019-08-12] MEDS: METOPROLOL TARTRATE 50 MG TAB PO SCH ×3 (08:52→20:04)
[2019-08-12] MEDS: oxyCODONE ER 15 MG TAB.ER.12H PO SCH ×2 (08:53→20:04)
[2019-08-12] MEDS ORDERED: POTASSIUM BICARBONATE/CIT AC 20 MEQ TABLET.EFF PO ONE (12:47)
--- NOTE | 2019-08-12 13:00 | P.PN ---
Subjective Progress Note Date: 08/12/19 Principal diagnosis: MBC, hypercalcemia of malignancy In f/u today pt continues to be confused, scattered thoughts. Pt denied headache, has anxiety, no SHARONA. Objective - Vital Signs Vital signs: Vital Signs Temp 97.7 F 08/12/19 08:00 Pulse 78 08/12/19 08:00 Resp 21 08/12/19 08:00 BP 137/74 08/12/19 08:00 Pulse Ox 96 08/12/19 08:00 Intake & Output 08/11/19 08/12/19 08/12/19 18:59 06:59 18:59 Intake Total 840 1140 400 Output Total 250 620 175 Balance 590 520 225 Weight 80.9 kg 81.2 kg Intake: IV 600 900 60 Sodium Chloride 0.9% 1, 600 900 60 000 ml @ 60 mls/hr IV . [id number] [facility] Rx#:[id number] Intake, IV Titration 100 Amount Magnesium Sulfate-D5w Pmx 100 1 gm In Dextrose/Water 1 100ml.bag @ 100 mls/hr IVPB Q1H [facility] Rx#: [id number] Oral 240 240 240 Output: Urine 250 620 175 Other: Voiding Method Indwelling Catheter Indwelling Catheter - Constitutional Constitutional Comment(s): Frail, weak, needs assistance with basic needs, generalized tremor noted General appearance: Present: cooperative, mild distress - EENT Eyes: Present: anicteric sclerae - Labs CBC & Chem 7: 08/12/19 04:21 08/12/19 04:21 Labs: Abnormal Lab Results - Last 24 Hours (Table) 08/12/19 08/12/19 Range/Units 04:21 04:21 RBC 2.76 L (3.80-5.40) m/uL Hgb 8.5 L (11.4-16.0) gm/dL Hct 25.6 L (34.0-46.0) % RDW 19.5 H (11.5-15.5) % Plt Count 37 L (150-450) k/uL Nucleated RBCs 42 H (0-0) /100 WBC Potassium 3.1 L (3.5-5.1) mmol/L Chloride 111 H (98-107) mmol/L BUN 48 H (7-17) mg/dL Creatinine 1.30 H (0.52-1.04) mg/dL Glucose 68 L (74-99) mg/dL Ionized Calcium Radha 6.2 H* (4.5-5.3) mg/dL Magnesium 1.5 L (1.6-2.3) mg/dL Assessment and Plan (1) Hypercalcemia Current Visit: Yes Status: Resolved Priority: High Code(s): E83.52 - HYPERCALCEMIA SNOMED Code(s): 48304546 (2) Bicytopenia Narrative/Plan: Secondary to treatment of breast cancer and marrow involvement with cancer CBC stable. Current Visit: Yes Status: Acute Priority: High Code(s): D75.89 - OTHER SPECIFIED DISEASES OF BLOOD AND BLOOD-FORMING ORGANS SNOMED Code(s): 81316249 (3) Metastatic breast cancer Narrative/Plan: Mets to bone and bone marrow. Treatment with Ibrance/ faslodex and xgeva. Was due to start cycle on 07/30 but this was delayed due to pt c/o and significant hematological changes. Counts are currently stable. Tumor markers are elevated, no comparison MRI brain suggestive of meningeal mets Current Visit: Yes Status: Chronic Priority: High Code(s): C50.919 - MALIGNANT NEOPLASM OF UNSP SITE OF UNSPECIFIED FEMALE BREAST SNOMED Code(s): 136194470 (4) A-fib Narrative/Plan: Hold anticoagulation due to low plt count Current Visit: Yes Status: Chronic Priority: Medium Code(s): I48.91 - UNSPECIFIED ATRIAL FIBRILLATION SNOMED Code(s): 44859691 Plan: 08/11/19 findings on MRI brain and impression most suggestive of a leptomeningeal metastasis was discussed with pt and son separately as he was leaving for an appt. It was explained that LP with CSF cytology would need to be performed to confirm the diagnosis. Platelets would need to transfused until an adequate level is reached that was safe to perform LP. If positive, treatment would consist of ommya port placement and IT chemotherapy. If CSF negative, it would be considered non-diagnostic and another attempt would be necessary. If UNIX ENGINEER + disease then it follows that pt has disease progression and systemic therapy would need to be changed, likely to parenteral route but, that is not absolute. We did discuss treatment of symptoms only with hospice and allow natural . Pt and family were to discuss with plans for final decisions today, per Jinny serrano, no family has been to the unit today. I will remain available if needed for further discussions. Spoke with RN about setting up a family meeting for tomorrow if needed. If decision is made for hospice care then ok to proceed.
[2019-08-12] MEDS: LORazepam 0.5 MG TAB PO PRN (13:07)
[2019-08-12] MEDS: HYDROmorphone 0.5 MG/0.5 ML SYRINGE IVP PRN ×2 (13:07→17:02)
--- NOTE | 2019-08-12 14:03 | P.PN ---
Subjective Progress Note Date: 08/12/19 This is a 58-year-old female patient of Micheal Nielsen NP with past medical history of breast cancer status post lumpectomy in 2010 with recurrence of invasive ductal carcinoma stage III grade IIIa with lumpectomy July 2013 with bone metastasis and multiple pathologic compression fractures. Status post cervical fusion, right femur nail and titanium joaquín all positive for cancer in December 2018, kyphoplasty L3 followed by kyphoplasty T12, L1, L5-S1 with radiofrequency ablation April 2019, history of thyroid cancer status post lobectomy and radiation therapy, chronic atrial fibrillation status post ablation on Xarelto, hypothyroidism, chronic pain syndrome, gastroesophageal reflux disease, generalized anxiety disorder. Patient's last chemotherapy was performed on 05/13/2019. Last radiation to the cervical, right femur and lumbar areas completed on 02/20/2019. PET scan on 06/06/2019 revealed osseous metastatic disease. Patient has [facility] care in place. Patient states that she was at [facility] from May 21 through the June 02 at which time she underwent lumbar spine procedures. She states she also has a left scapular fracture and rib fractures. Old fractures are pathologic related to cancer with metastatic disease. She had previously received all her care at [facility] and now switch to Dr. Ordonez. She was last admitted from her facility June 16 to June 19 secondary to hypercalcemia secondary to metastatic disease to the bone, she was seen by Dr. Mccormick that time, she received IM calcitonin, and Zometa 4 mg IV, calcium on the last admission was 14.9, on discharge She'll level was 7.2. Patient came into [facility] emergency center for evaluation. secondary to abdominal pain of 1 week, nausea vomiting of one week, she is was found to have a calcium level of 18, creatinine is also worsening, currently at 1.78 on admission, discharge creatinine was 0.55, June 20. Lipase was elevated at 3253, liver function tests elevated including alkaline Lilly, 203. She has known history of cholecystectomy with sphincterotomy in the past. She does have chronic pain, we are going to continue on the OxyContin 20 mg every 12 hours, IV Dilaudid, consult were made with Dr. Velasquez gastrology for pancreatitis, consult with Dr. Corbett, and Dr. Mccormick for severe critical hypercalcemia. We'll going to add additional infusion of IV pamidronate, for a total of 90 mg 1 dose today. IV hydration, IV Lasix 40 mg twice a day, 08/09: Per nursing staff patient had increased confusion and competitive through the night. Patient continues to have confusion unable to answer questions appropriately. At times she will make sense and then rambles on and jumps subject while interviewing. Patient is reluctant to go to subacute rehab facility she is afraid this will mess with her rehab days for the week. Patient is complaining of generalized pain that has increased. Patient is requesting to go home and receive therapy at home. Discussed with patient that she is not able to walk or hold cups that she would not be able to stay home to receive therapy. Patient requires more intense therapy. 08/10: At midnight, A-Team was called as patient had a hemoglobin of 6.7 and EKG was A. fib with RVR. Patient reported palpitations but denied any difficulty breathing. Patient was transferred to ICU. Cardizem drip was ordered but patient did not require. Patient was transfused 1 unit of packed RBCs and during transport from [facility] ICU, cardiac rhythm converted to sinus rhythm. No anticoagulation per oncology due to low platelet count. Patient has been seen by cardiology with recommendations for metoprolol tartrate 50 mg 3 times daily. The patient is eating very little. She is scheduled [place] of [place]. [place] 2729, CEA ordered by oncology is pending. The plan to resume chemotherapy following discharge from the hospital. Patient has been afebrile, blood pressure 137/69, pulse ox 92% on 2 L nasal cannula. Repeat lab work this morning reveals hemoglobin of 9.1, WBC 6.3, platelet count 45, BUN 51 and cre atinine 2.05. Ionized calcium 6.7. AST 130, ALT 75, alkaline phosphatase 180. 08/11: MRI of the brain revealed diffuse meningeal enhancement suggestive of metastatic disease. No evidence of intra-axial metastatic disease. Extensive calvarial enhancing lesions consistent with osseous metastatic disease. At this time, patient is to decide whether she wants to proceed with open PE at which she would require treatment at [facility] and appears to not be a candidate for this. Patient family state that she would be unable to be transported down there. Other option is for hospice care. Patient wishes to discuss with her son. Other family members including are at the bed side. IV fluids have been decreased to 60 mL/h per Dr. Enriquez. Cardiology recommends continuing current medications and will follow on an as-needed basis. Dr. Stephenson has cleared the patient for diet and has signed off. Patient has been afebrile, heart rate 83, blood pressure 165/91, respiratory rate 26, pulse ox 94% on 2 L nasal cannula. Potassium 3.0, chloride 109, BUN 51, creatinine 1.54, hemoglobin 8.5, platelet count 38, INR 1.3, PTT 21.4, fibrinogen 557. Dulcolax studies are elevated. 08/12: A patient has multiple family members at the bedside. She is voicing some concern that she has a UTI. Urinalysis and culture will be checked. She did have a urinalysis done on the which was clearing. Patient and family to make a final decision today regarding protein seeding with LP or hospice. There is a informational meeting with hospice to be arranged. Patient has been afebri le, blood pressure 137/74, pulse ox 96% on 2 L nasal cannula. Repeat lab work reveals hemoglobin 8.5, platelet count 37, BUN 48 and creatinine 1.30, potassium 3.1 and has been replaced. Calcium 6.2, magnesium 1.5. Patient has been an overflow for the cardiac stepdown unit. She continues to wait for bed outside of ICU. Review of systems Constitutional: Reports anorexia, Reports chronic pain, Reports lethargy, Reports malaise, Reports poor appetite Ears, nose, mouth and throat: Denies ant. neck pain, Denies bleeding gums, Denies dental pain, Denies dysphagia, Denies epistaxis, Denies headache, Denies hoarseness, Denies mouth pain, Denies nasal congestion, Denies nasal discharge, Denies neck fullness/pressure, Denies neck lump, Denies nose pain, Denies odynophagia, Denies post-nasal drip, Denies sinus pain, Denies sinus pressure, Denies swelling in mouth, Denies swelling in throat, Denies sore throat, Denies vertigo, Denies voice changes Cardiovascular: Denies chest pain, Denies claudication, Denies decreased exercise tolerance, Denies dyspnea on exertion, Denies edema, Denies high blood pressure, Denies irregular heart beat, Denies leg edema, Denies lightheadedness, Denies orthopnea, Denies palpitations, Denies paroxysmal nocturnal dyspnea, Denies phlebitis, Denies rapid heart beat, Denies shortness of breath, Denies syncope Respiratory: Denies congestion, Denies cough, Denies cough with sputum, Denies dyspnea, Denies excessive sputum, Denies hemoptysis, Denies home oxygen, Denies pain, Denies pain on inspiration, Denies pleurisy, Denies respiratory infections, Denies sleep apnea, Denies snoring, Denies wheezing Gastrointestinal: Reports abdominal pain, Reports dyspepsia, Reports early satiety, Reports loss of appetite, Reports nausea, Reports vomiting Genitourinary: Denies urinary retention Musculoskeletal: Reports gait dysfunction, Reports limitation of motion, Denies arm numbness/tingling, Denies atrophy, Denies fractures, Denies frequent falls, Denies hot joints, Denies leg numbness/tingling, Denies loss of height, Denies low back pain, Denies morning stiffness, Denies muscle cramps, Denies muscle weakness, Denies myalgias, Denies neck pain, Denies neck stiffness, Denies prior amputations, Denies redness of joints, Denies shooting arm pain, Denies shooting leg pain Integumentary: No rashes, no wounds Neurological: Reports memory loss, reports generalized weakness, reports confusion Psychiatric: Denies anhedonia, Denies anxiety, Denies anxiety attacks, Denies change in appetite, Denies change in libido, Denies change in sleep habits, Denies confusion, Denies depression, Denies difficulty concentrating, Denies disorientation, Denies hallucinations, Denies hopelessness, Denies hypersomnia, Denies insomnia, Denies irritability, Denies memory loss, Denies mood swings, Denies paranoia, Denies sadness/tearfulness, Denies sleep disturbances, Denies suicidal ideation Allergic/Immunologic: Denies allergic rhinitis, Denies anaphylaxis, Denies an gioedema, Denies gluten intolerance, Denies persistent infections, Denies seasonal allergies, Denies urticaria, Denies wheezing Objective - Vital Signs Vital signs: Vital Signs Temp 97.7 F 08/12/19 08:00 Pulse 78 08/12/19 08:00 Resp 21 08/12/19 08:00 BP 137/74 08/12/19 08:00 Pulse Ox 96 01/15/20 08:00 Intake & Output 08/11/19 08/12/19 08/12/19 18:59 06:59 18:59 Intake Total 840 1140 400 Output Total 250 620 175 Balance 590 520 225 Weight 80.9 kg 81.2 kg Intake: IV 600 900 60 Sodium Chloride 0.9% 1, 600 900 60 000 ml @ 60 mls/hr IV . [id number] CARLOS Rx#:[id number] Intake, IV Titration 100 Amount Magnesium Sulfate-D5w Pmx 100 1 gm In Dextrose/Water 1 100ml.bag @ 100 mls/hr IVPB Q1H CARLOS Rx#: [id number] Oral 240 240 240 Output: Urine 250 620 175 Other: Voiding Method Indwelling Catheter Indwelling Catheter - Exam General Appearance: Alert, cooperative at times, no distress, appears stated age. Memory members at bedside. Neck HEENT: Supple, no lymphadenopathy, no thyroid enlargement, no carotid bruits. Lungs: Clear to auscultation without crackles or wheezes no rhonchi, no deformity. Chest Wall: Chest wall normal expansion with deep inspiration. Heart: Regular rate and rhythm, S1, S2 normal, no murmur, rub or gallop. awake overnight monitor sinus rhythm. Back: Symmetric, no curvature, ROM normal, no CVA tenderness. Abdomen: Soft, non-tender, no rebound or rigidity, no hepatosplenomegaly. Miller catheter in place. Extremities: Extremities normal, atraumatic, no cyanosis or edema. Strength equal bilaterally Pulses: 2+ and symmetric. Skin: Skin color, texture, tugor normal, no rashes or lesions. Neurologic: Alert oriented x2, noted confusion, rambling cranial nerves II through XII intact, no motor deficit, generalized weakness - Labs CBC & Chem 7: 08/12/19 04:21 08/12/19 04:21 Labs: Abnormal Lab Results - Last 24 Hours (Table) 08/11/19 08/12/19 08/12/19 Range/Units 09:53 04:21 04:21 RBC 2.76 L (3.80-5.40) m/uL Hgb 8.5 L (11.4-16.0) gm/dL Hct 25.6 L (34.0-46.0) % RDW 19.5 H (11.5-15.5) % Plt Count 37 L (150-450) k/uL Nucleated RBCs 42 H (0-0) /100 WBC PT 13.0 H (9.0-12.0) sec INR 1.3 H (<1.2) APTT 21.4 L (22.0-30.0) sec Fibrinogen 557 H (200-500) mg/dL Potassium 3.1 L (3.5-5.1) mmol/L Chloride 111 H (98-107) mmol/L BUN 48 H (7-17) mg/dL Creatinine 1.30 H (0.52-1.04) mg/dL Glucose 68 L (74-99) mg/dL Ionized Calcium Radha 6.2 H* (4.5-5.3) mg/dL Magnesium 1.5 L (1.6-2.3) mg/dL Assessment and Plan Plan: 1. Critical Hypercalcemia secondary to breast cancer with metastatic disease to the bone. Nephrology consult appreciated. IV fluids 100 mL per hour, pamidronate IV, 19 mg 1 dose, discontinue vitamin D. Electrophoresis studies negative. Appropriately suppressed PTH from previous workup, consult with Dr. cMcormick reviewed and appreciated, oncology consult appreciated. Discontinue Lasix, discontinue potassium supplement, status post calcitonin. 2. Breast cancer with metastatic disease to the bone, brain. Patient has been given the option of LP puncture for further evaluation but understanding that she would have to seek treatment at [facility]. This does not sound like an option for her. She is contemplating hospice care at this point. 3. Acute pancreatitis, most likely secondary to hypercalcemia, prior history of cholecystectomy with sphincterotomy, obtain abdominal ultrasound, which is negative for common bile duct outpatient. Full liquid diet, protein supplements. 4. Pancytopenia with Breast cancer with bone metastasis status post multiple surgical interventions. Oncology consult appreciated. 5. Paroxysmal atrial fibrillation with episode of A. fib with RVR. Continue Lopressor 50 mg 3 times daily, Xarelto on hold due to low platelet count. Cardiology consult appreciated. 6. Acute renal failure secondary to ATN with underlying chronic kidney disease stage I, IV fluids for hydration, 7. Hypothyroidism. Continue levothyroxine 176 g daily. 8. Gastroesophageal reflux disease and GI prophylaxis. Continue Protonix. 9. Chronic pain syndrome. Continue Voltaren gel, Robaxin 750 mg every 6 hours as needed, OxyContin 30 mg extended release every 12 hours, oxycodone 10 mg every 4 hours as needed. 10 Transaminitis, acute, possibly possibly related to COATES, alkaline phosphatase elevations also noted most likely secondary to bone metastases, doubt obstructive etiology, cant r/o other itioloty include liver med 11. History of thyroid cancer. 12. Generalized anxiety disorder. Continue Xanax or 0.5 mg 4 times daily as needed. 13. Metastatic disease to the brain. 14. Acute anemia secondary to underlying breast cancer and chemotherapy status post transfusion of 1 unit of RBCs. DVT prophylaxis due to low platelet count GI prophylaxis Protonix Discharge plan: Most likely patient will decide on hospice care. Informational meeting to be arranged with [facility] hospice Impression and plan of care have been directed as dictated by the signing physician. Elayne Ambrosio nurse practitioner acting as scribe for signing physician.
[2019-08-12] MEDS ORDERED: SODIUM CHLORIDE 0.65% NASAL SPRAY 44 ML BTL NASAL PRN (14:05)
--- NOTE | 2019-08-12 14:47 | PN ---
PROGRESS NOTE Patient is seen for followup for acute kidney injury and hypercalcemia. Her renal function continues to improve. The patient is maintained on IV fluids at 60 mL an hour. Her potassium was low at 3.1 early this morning. PHYSICAL EXAMINATION: On examination, blood pressure is 137/74, heart rate 78 per minute, patient is afebrile. Examination of the heart S1, S2. Examination of the lungs, bilateral breath sounds are heard. Abdomen is soft, nontender. Examination of the lower extremities shows edema 1+ bilaterally. [employer]GER exam shows patient is moving all 4 extremities. She is confused. LABS: Show sodium 140, potassium 3.1, chloride 111, BUN 48, creatinine 1.3, calcium is 9.7. ASSESSMENT: 1. Acute kidney injury associated with hypercalcemia and volume depletion, currently improved significantly. 2. Hypercalcemia from metastatic breast cancer, status post pamidronate, now improved. 3. Hypokalemia secondary to decreased oral intake. We will replace aggressively. 4. Mental status changes with evidence of brain metastasis. PLAN: Continue to encourage increased oral intake. Replace potassium aggressively. MMODL / IJN: [id number] /
[2019-08-12] MEDS: NYSTATIN 100,000 UNIT/ML SUSP 500,000 UNIT/5 ML CUP PO SCH ×2 (17:03→20:04)
[2019-08-12 20:22] LABS: Glucose,Whole Blood 90 mg/dL (75-99)
[2019-08-12 21:23] LABS: Appearance,Urine Turbid (Clear); Bilirubin,Urine Negative (Negative); Blood,Urine Large (Negative); Color,Urine Red; Glucose,Urine (UA) Negative (Negative); Ketones,Urine Negative (Negative); Leukocyte Esterase,Urine Large (Negative); Nitrite,Urine Negative (Negative); Protein,Urine 1+ (Negative); Specific Gravity,Urine 1.013 (1.001-1.035); Urobilinogen,Urine <2.0 mg/dL (<2.0)
[2019-08-13] MEDS: HYDROmorphone 0.5 MG/0.5 ML SYRINGE IVP PRN ×4 (02:01→15:41)
[2019-08-13] MEDS: SODIUM CHLORIDE 0.9% 1,000 ML IV SCH (02:02)
[2019-08-13] MEDS ORDERED: LEVOTHYROXINE 50 MCG TAB PO SCH (04:53)
[2019-08-13] MEDS: DILTIAZEM 125 MG in SODIUM CHLORIDE 0.9% 100 ML IV SCH (06:32)
[2019-08-13 07:17] LABS: Glucose,Whole Blood 76 mg/dL (75-99)
[2019-08-13] MEDS: METOPROLOL TARTRATE 50 MG TAB PO SCH ×2 (07:17→15:41)
[2019-08-13] MEDS: PANTOPRAZOLE 40 MG TABLET PO SCH (07:17)
[2019-08-13] MEDS: NYSTATIN 100,000 UNIT/ML SUSP 500,000 UNIT/5 ML CUP PO SCH ×2 (07:17→12:17)
[2019-08-13] MEDS: oxyCODONE ER 15 MG TAB.ER.12H PO SCH (07:18)
[2019-08-13] MEDS: DOCUSATE 100 MG CAP PO PRN (07:24)
[2019-08-13 08:21] LABS: Magnesium 1.9 mg/dL (1.6-2.3); Potassium 3.6 mmol/L (3.5-5.1)
[2019-08-13] MEDS ORDERED: POTASSIUM CHLORIDE ER 20 MEQ TAB.ER PO SCH (09:00)
[2019-08-13] MEDS: MAGNESIUM SULFATE-D5W PMX 1 GM in DEXTROSE/WATER 1 100ML.BAG IVPB SCH ×2 (09:21→10:39)
--- NOTE | 2019-08-13 11:22 | P.DS ---
Providers Date of admission: 08/07/19 23:08 Expected date of discharge: 08/13/19 Attending physician: Amelia Abarca Consults: 08/07/19 23:06 Consult Physician Routine Consulting Provider: Lissett Ordonez Consult Reason/Comments: cancer Do you want consulting provider notified?: Yes 08/08/19 09:24 Consult Physician Routine Consulting Provider: Jordana Enriquez Consult Reason/Comments: hypercalcemia Do you want consulting provider notified?: Yes 08/10/19 00:16 Consult Physician Routine Consulting Provider: An Al Consult Reason/Comments: A fib with RVR Do you want consulting provider notified?: Yes Primary care physician: Krishan Thompson [facility] Hospital Course: This is a 58-year-old female patient of Micheal Nielsen NP with past medical history of breast cancer status post lumpectomy in 2010 with recurrence of invasive ductal carcinoma stage III grade IIIa with lumpectomy July 2013 with bone metastasis and multiple pathologic compression fractures. Status post cervical fusion, right femur nail and titanium joaquín all positive for cancer in December 2018, kyphoplasty L3 followed by kyphoplasty T12, L1, L5-S1 with radiofrequency ablation April 2019, history of thyroid cancer status post lobectomy and radiation therapy, chronic atrial fibrillation status post ablation on Xarelto, hypothyroidism, chronic pain syndrome, gastroesophageal reflux disease, generalized anxiety disorder. Patient's last chemotherapy was performed on 05/13/2019. Last radiation to the cervical, right femur and lumbar areas completed on 02/20/2019. PET scan on 06/06/2019 revealed osseous metastatic disease. Patient has [facility] care in place. Patient states that she was at [facility] from May 21 through the June 02 at which time she underwent lumbar spine procedures. She states she also has a left scapular fracture and rib fractures. Old fractures are pathologic related to cancer with metastatic disease. She had previously received all her care at [facility] and now switch to Dr. Ordonez. She was last admitted from her facility June 16 to June 19 secondary to hypercalcemia secondary to metastatic disease to the bone, she was seen by Dr. Mccormick that time, she received IM calcitonin, and Zometa 4 mg IV, calcium on the last admission was 14.9, on discharge She'll level was 7.2. Patient came into [facility] emergency center for evaluation. secondary to abdominal pain of 1 week, nausea vomiting of one week, she is was found to have a calcium level of 18, creatinine is also worsening, currently at 1.78 on admission, discharge creatinine was 0.55, June 20. Lipase was elevated at 3253, liver function tests elevated including alkaline [place], 203. She has known history of cholecystectomy with sphincterotomy in the past. She does have chronic pain, we are going to continue on the OxyContin 20 mg every 12 hours, IV Dilaudid, consult were made with Dr. Velasquez gastrology for pancreatitis, consult with Dr. Corbett, and Dr. Mccormick for severe critical hypercalcemia. We'll going to add additional infusion of IV pamidronate, for a total of 90 mg 1 dose today. IV hydration, IV Lasix 40 mg twice a day, 08/09: Per nursing staff patient had increased confusion and competitive through the night. Patient continues to have confusion unable to answer questions appropriately. At times she will make sense and then rambles on and jumps subject while interviewing. Patient is reluctant to go to subacute rehab facility she is afraid this will mess with her rehab days for the week. Patient is complaining of generalized pain that has increased. Patient is requesting to go home and receive therapy at home. Discussed with patient that she is not able to walk or hold cups that she would not be able to stay home to receive therapy. Patient requires more intense therapy. 08/10: At midnight, A-Team was called as patient had a hemoglobin of 6.7 and EKG was A. fib with RVR. Patient reported palpitations but denied any difficulty breathing. Patient was transferred to ICU. Cardizem drip was ordered but patient did not require. Patient was transfused 1 unit of packed RBCs and during transport from [facility] ICU, cardiac rhythm converted to sinus rhythm. No anticoagulation per oncology due to low platelet count. Patient has been seen by cardiology with recommendations for metoprolol tartrate 50 mg 3 times daily. The patient is eating very little. She is scheduled for MRI of the brain. [place] 2729, CEA ordered by oncology is pending. The plan to resume chemotherapy following discharge from the hospital. Patient has been afebrile, blood pressure 137/69, pulse ox 92% on 2 L nasal cannula. Repeat lab work this morning reveals hemoglobin of 9.1, WBC 6.3, platelet count 45, BUN 51 and crea tinine 2.05. Ionized calcium 6.7. AST 130, ALT 75, alkaline phosphatase 180. 08/11: MRI of the brain revealed diffuse meningeal enhancement suggestive of metastatic disease. No evidence of intra-axial metastatic disease. Extensive calvarial enhancing lesions consistent with osseous metastatic disease. At this time, patient is to decide whether she wants to proceed with open PE at which she would require treatment at [facility] and appears to not be a candidate for this. Patient family state that she would be unable to be transported down there. Other option is for hospice care. Patient wishes to discuss with her son. Other family members including are at the bedside. IV fluids have been decreased to 60 mL/h per Dr. Enriquez. Cardiology recommends continuing current medications and will follow on an as-needed basis. Dr. Stephenson has cleared the patient for diet and has signed off. Patient has been afebrile, heart rate 83, blood pressure 165/91, respiratory rate 26, pulse ox 94% on 2 L nasal cannula. Potassium 3.0, chloride 109, BUN 51, creatinine 1.54, hemoglobin 8.5, platelet count 38, INR 1.3, PTT 21.4, fibrinogen 557. Dulcolax studies are elevated. 08/12: A patient has multiple family members at the bedside. She is voicing some concern that she has a UTI. Urinalysis and culture will be checked. She did have a urinalysis done on the which was clearing. Patient and family to make a final decision today regarding protein seeding with LP or hospice. There is a informational meeting with hospice to be arranged. Patient has been afebrile, blood pressure 137/74, pulse ox 96% on 2 L nasal cannula. Repeat lab work reveals hemoglobin 8.5, platelet count 37, BUN 48 and creatinine 1.30, potassium 3.1 and has been replaced. Calcium 6.2, magnesium 1.5. Patient has been an overflow for the cardiac stepdown unit. She continues to wait for bed outside of ICU. 08/13: Patient has been transferred to the oncology unit. Repeat urinalysis done yesterday revealed turbid, blood large, leukoesterase large. Patient is complaining of pain at the urinary meatus and topical lidocaine has been ordered to address this. No sign of urinary tract infection. Patient is in her room with the son, and [id number] at the bedside with clear and hospice. Patient has decided that she will go to [facility] with hospice. Prescriptions have been provided a medication reconciliation has been reviewed and all unnecessary medications have been discontinued. Patient will be discharged to [facility] once a bed is available on Saturday. If necessary, patient will be transitioned to inpatient hospice with plan for discharge on Saturday once bed is available at [facility]. Discharge diagnoses: 1. Critical Hypercalcemia secondary to breast cancer with metastatic disease to the bone and brain. 2. Breast cancer with metastatic disease to the bone, brain. 3. Acute pancreatitis, most likely secondary to hypercalcemia 4. Pancytopenia secondary to Breast cancer with bone metastasis 5. Paroxysmal atrial fibrillation with episode of A. fib with RVR. 6. Acute renal failure secondary to ATN with underlying chronic kidney disease stage I 7. Hypothyroidism. 8. Gastroesophageal reflux disease 9. Chronic pain syndrome. 10 Transaminitis, acute, possibly possibly related to COATES 11. History of thyroid cancer. 12. Generalized anxiety disorder. 13. Acute anemia secondary to underlying breast cancer and chemotherapy status post transfusion of 1 unit of RBCs. Discharge plan: [facility] with [facility] Impression and plan of care have been directed as dictated by the signing physician. Elayne Ambrosio nurse practitioner acting as scribe for signing physician. Patient Condition at Discharge: Stable Plan - Discharge Summary Discharge Rx Participant: No New Discharge Prescriptions: New fentaNYL 75MCG/HR PATCH [Duragesic 75MCG/HR] 1 patch TRANSDERM Q72H 3 Days #1 patch Metoprolol Tartrate [Lopressor] 50 mg PO TID tab Lidocaine 5% Oint [Xylocaine 5% Oint] 1 applic TOPICAL BID #30 gm Dexamethasone [Decadron] 4 mg PO TID #90 tablet Ibuprofen [Motrin] 600 mg PO Q6HR PRN #100 tab PRN Reason: Pain Continue Levothyroxine Sodium [Synthroid] 175 mcg PO DAILY@0500 Methocarbamol [Robaxin] 1,500 mg PO Q6H PRN PRN Reason: Spasms Sennosides [Senna] 8.6 mg PO BID Polyethylene Glycol 3350 [Miralax] 17 gm PO DAILY Acetaminophen Tab [Tylenol] 1,000 mg PO Q8H Docusate [Colace] 100 mg PO DAILY PRN PRN Reason: Constipation LORazepam [Ativan] 0.5 mg PO TID PRN #9 tab PRN Reason: Anxiety oxyCODONE HCL [Roxicodone] 10 mg PO Q4H PRN #18 tab PRN Reason: Pain Discontinued Loratadine 10 mg PO DAILY PRN PRN Reason: Allergy Symptoms Rivaroxaban [Xarelto] 20 mg PO W/SUPPER HYDROmorphone HCL 2 mg PO Q6H PRN PRN Reason: Breakthrough Pain Potassium Chloride [Klor-Con 20] 20 meq PO DAILY Metoprolol Succinate (ER) [Toprol XL] 50 mg PO HS Metoprolol Succinate (ER) [Toprol XL] 25 mg PO DAILY oxyCODONE HCL [OxyCONTIN] 30 mg PO Q12H Omeprazole 20 mg PO DAILY Palbociclib [Ibrance] 100 mg PO DIRECTED Discharge Medication List Levothyroxine Sodium [Synthroid] 175 mcg PO DAILY@0500 09/15/17 [History] Acetaminophen Tab [Tylenol] 1,000 mg PO Q8H 06/15/19 [History] Methocarbamol [Robaxin] 1,500 mg PO Q6H PRN 06/15/19 [History] Polyethylene Glycol 3350 [Miralax] 17 gm PO DAILY 06/15/19 [History] Sennosides [Senna] 8.6 mg PO BID 06/15/19 [History] Docusate [Colace] 100 mg PO DAILY PRN 08/07/19 [History] Dexamethasone [Decadron] 4 mg PO TID #90 tablet 08/13/19 [Rx] Ibuprofen [Motrin] 600 mg PO Q6HR PRN #100 tab 08/13/19 [Rx] LORazepam [Ativan] 0.5 mg PO TID PRN #9 tab 08/13/19 [Rx] Lidocaine 5% Oint [Xylocaine 5% Oint] 1 applic TOPICAL BID #30 gm 08/13/19 [Rx] Metoprolol Tartrate [Lopressor] 50 mg PO TID tab 08/13/19 [Rx] fentaNYL 75MCG/HR PATCH [Duragesic 75MCG/HR] 1 patch TRANSDERM Q72H 3 Days #1 patch 08/13/19 [Rx] oxyCODONE HCL [Roxicodone] 10 mg PO Q4H PRN #18 tab 08/13/19 [Rx] Follow up Appointment(s)/Referral(s): Krishan Javed MD [Primary Care Provider] - 1-2 days
[2019-08-13 11:48] VITALS: BP 124/64; PULSE 83; RESP 16; TEMP 98.8
== END 2019-08-13 15:58 | disposition hospice, inpatient (51) | DRG 438 ==
LOC: EC 18:17 → 5NMEDONC 23:08 → 2SICU 08-09 23:41 → 5NMEDONC 08-12 17:39
PROVIDERS: ADMIT Family Medicine; ATTEND Family Medicine
PROC: 30233N1 Transfusion of Nonautologous Red Blood Cells into Peripheral Vein, Percutaneous Approach (ICD-10-PCS; principal; 2019-08-09)
DX: K85.90 Acute pancreatitis without necrosis or infection, unspecified (principal); D61.810 Antineoplastic chemotherapy induced pancytopenia; N17.0 Acute kidney failure with tubular necrosis; C79.31 Secondary malignant neoplasm of brain; C79.51 Secondary malignant neoplasm of bone; M84.512A Pathological fracture in neoplastic disease, left shoulder, initial encounter for fracture; E83.52 Hypercalcemia; Z51.5 Encounter for palliative care; C50.919 Malignant neoplasm of unspecified site of unspecified female breast; I95.9 Hypotension, unspecified; K75.81 Nonalcoholic steatohepatitis (NASH); E86.0 Dehydration; E87.6 Hypokalemia; F32.9 Major depressive disorder, single episode, unspecified; F41.1 Generalized anxiety disorder; G89.4 Chronic pain syndrome; I12.9 Hypertensive chronic kidney disease with stage 1 through stage 4 chronic kidney disease, or unspecified chronic kidney disease; I48.0 Paroxysmal atrial fibrillation; K21.9 Gastro-esophageal reflux disease without esophagitis; M79.7 Fibromyalgia; N18.1 Chronic kidney disease, stage 1; T45.1X5A Adverse effect of antineoplastic and immunosuppressive drugs, initial encounter; R01.1 Cardiac murmur, unspecified; R79.89 Other specified abnormal findings of blood chemistry; E89.0 Postprocedural hypothyroidism; Z79.01 Long term (current) use of anticoagulants; Z79.890 Hormone replacement therapy; Z79.899 Other long term (current) drug therapy; Z79.891 Long term (current) use of opiate analgesic; Z88.1 Allergy status to other antibiotic agents; Z88.5 Allergy status to narcotic agent; Z88.8 Allergy status to other drugs, medicaments and biological substances; Z90.710 Acquired absence of both cervix and uterus; Z90.49 Acquired absence of other specified parts of digestive tract; Z85.850 Personal history of malignant neoplasm of thyroid; Z85.3 Personal history of malignant neoplasm of breast; Z98.1 Arthrodesis status; Z92.3 Personal history of irradiation; Z82.5 Family history of asthma and other chronic lower respiratory diseases
CPT/HCPCS: 36415; 70553; 71046; 76705; 80048; 80053; 81001; 82306; 82330; 82550; 82728; 83540; 83550; 83690; 83735; 83970; 84132; 84439; 84443; 85025; 85027; 85384; 85610; 85730; 86300; 86850; 86900; 86901; 86920; 93005; 96361; 96365; 96366; 96375; 96376; 99285

== ENCOUNTER 2019-08-13 13:59 | Inpatient (IN) | payer MEDICAID ==
[2019-08-13] MEDS ORDERED: ATROPINE OPHTH SOLN 1% 5ML BTL SUBLINGUAL PRN (14:20)
[2019-08-13] MEDS ORDERED: LORazepam 0.5 MG TAB PO PRN (14:20)
[2019-08-13] MEDS ORDERED: ACETAMINOPHEN SUPPOSITORY 650 MG SUPP RECTAL PRN (14:20)
[2019-08-13] MEDS ORDERED: METHOCARBAMOL 750 MG TAB PO PRN (14:23)
[2019-08-13] MEDS ORDERED: DOCUSATE 100 MG CAP PO PRN (14:23)
[2019-08-13] MEDS: METOPROLOL TARTRATE 50 MG TAB PO SCH ×2 (17:47→22:46)
[2019-08-13] MEDS ORDERED: IBUPROFEN 600 MG TAB PO SCH (18:00)
[2019-08-13] MEDS: DEXAMETHASONE 4 MG TAB PO SCH ×2 (18:02→22:46)
[2019-08-13] MEDS ORDERED: ACETAMINOPHEN TAB 325 MG TAB PO PRN (20:00)
[2019-08-13] MEDS: LIDOCAINE 5% OINTMENT 50 GM JAR TOPICAL SCH (22:51)
[2019-08-14] MEDS ORDERED: LEVOTHYROXINE 50 MCG TAB PO SCH (05:00)
[2019-08-14] MEDS: METOPROLOL TARTRATE 50 MG TAB PO SCH (08:02)
[2019-08-14] MEDS: DEXAMETHASONE 4 MG TAB PO SCH (08:02)
[2019-08-14] MEDS: LIDOCAINE 5% OINTMENT 50 GM JAR TOPICAL SCH (08:03)
[2019-08-14 12:09] VITALS: BP 145/82; PULSE 81; RESP 17; TEMP 97.5
== END 2019-08-14 14:25 | DRG 951 ==
LOC: 5NMEDONC 16:01
PROVIDERS: ADMIT Family Medicine; ATTEND Family Medicine
DX: Z51.5 Encounter for palliative care (principal); K85.90 Acute pancreatitis without necrosis or infection, unspecified; N17.0 Acute kidney failure with tubular necrosis; C79.51 Secondary malignant neoplasm of bone; D61.818 Other pancytopenia; C79.31 Secondary malignant neoplasm of brain; C50.919 Malignant neoplasm of unspecified site of unspecified female breast; Z66 Do not resuscitate; E89.0 Postprocedural hypothyroidism; G89.4 Chronic pain syndrome; K21.9 Gastro-esophageal reflux disease without esophagitis; F41.9 Anxiety disorder, unspecified; F32.9 Major depressive disorder, single episode, unspecified; G89.3 Neoplasm related pain (acute) (chronic); E83.52 Hypercalcemia; I48.0 Paroxysmal atrial fibrillation; N18.1 Chronic kidney disease, stage 1; E86.0 Dehydration; R74.0 Nonspecific elevation of levels of transaminase and lactic acid dehydrogenase [LDH]; D63.0 Anemia in neoplastic disease; E66.9 Obesity, unspecified; Z68.29 Body mass index [BMI] 29.0-29.9, adult; Z79.890 Hormone replacement therapy; Z79.899 Other long term (current) drug therapy; Z90.710 Acquired absence of both cervix and uterus; Z90.49 Acquired absence of other specified parts of digestive tract; Z87.311 Personal history of (healed) other pathological fracture; Z85.3 Personal history of malignant neoplasm of breast; Z98.890 Other specified postprocedural states; Z98.1 Arthrodesis status; Z92.3 Personal history of irradiation; Z85.850 Personal history of malignant neoplasm of thyroid; Z92.21 Personal history of antineoplastic chemotherapy; Z88.1 Allergy status to other antibiotic agents; Z88.5 Allergy status to narcotic agent; Z88.8 Allergy status to other drugs, medicaments and biological substances; Z83.49 Family history of other endocrine, nutritional and metabolic diseases; Z83.79 Family history of other diseases of the digestive system; Z82.5 Family history of asthma and other chronic lower respiratory diseases